=== PATIENT | male | born 1930 | race Caucasian/White ===

== ENCOUNTER 2017-07-06 16:14 | Inpatient (IN) | payer MEDICARE ==
[2017-07-06] MEDS ORDERED: NS 0.9% 1000 ML* 1,000 ML IV ONE ×3 (16:37→18:04)
[2017-07-06 16:51] LABS: Hematocrit 34 % (42-52); Hemoglobin 11.1 g/dl (14.0-18.0); Mean Corpuscular HGB Conc 33 g/dl (31-36); Mean Corpuscular Hemoglobin 32 pg (27-31); Mean Corpuscular Volume 97 fL (80-94); Mean Platelet Volume 5.9 um3 (7.4-10.4); Platelet Count 343 10^3/ul (150-450); Red Blood Count 3.51 10^6/ul (4.0-5.4); Red Cell Distribution Width 13 % (10.5-15); White Blood Count 24.5 10^3/ul (3.5-10.8)
--- NOTE | 2017-07-06 16:57 | RAD ---
INDICATION: Findings called to ED at 1453 hours COMPARISON: None TECHNIQUE: Noncontrast axial source images were acquired from the skull base to the vertex. FINDINGS: Ventricles/sulci: There is advanced cortical atrophy with compensatory dilatation of the CSF spaces. Brain parenchyma: There is moderately extensive periventricular and subcortical white matter change compatible with chronic ischemia. Intracranial hemorrhage:None. Extra-axial spaces: There are no abnormal extra axial fluid collections or evidence of extra-axial mass. Calvarium: There is no calvarial fracture or other calvarial abnormality. Scalp: There is no evidence of scalp or extracalvarial soft tissue abnormality. Paranasal sinuses/mastoid: The paranasal sinuses and mastoid air cells are clear. Other: None. IMPRESSION: ATROPHY WITH CHRONIC MICROVASCULAR ISCHEMIC CHANGE. NO ACUTE FINDINGS.
--- NOTE | 2017-07-06 16:59 | RAD ---
INDICATION: Code winkler. Change in mental status. COMPARISON: June 08, 2014 TECHNIQUE: An AP portable view obtained at 1649 hours is submitted. FINDINGS: Bones/Soft Tissues: There are no acute bony findings. Lungs: There are consolidative changes in the right chest which appear new. There are additional chronic pleural and parenchymal findings which appear relatively stable. Left lung is grossly clear. Cardiac: The chronic silhouette is unchanged. Pleura: Right-sided pleural fluid without change. Biapical scarring, unchanged. Other: None IMPRESSION: DEVELOPMENT OF CONSOLIDATIVE CHANGES IN THE RIGHT UPPER LOBE. UNDERLYING CHRONIC PLEURAL AND PARENCHYMAL CHANGES RIGHT HEMOTHORAX.
[2017-07-06] MEDS ORDERED: Aspirin 81 mg CHEW TAB* 81 MG TAB.CHEW PO ONE (17:07)
[2017-07-06 17:09] LABS: EGFR Non-African American 87.8 (>60)
[2017-07-06] MEDS ORDERED: Levofloxacin 750 MG IVPREMIX(* 750 MG/150 ML BAG IVPB ONE (17:10)
[2017-07-06 17:12] LABS: INR 1.1 (0.77-1.02)
[2017-07-06 17:42] LABS: ABS Basophils 0.1 10^3/ul (0-0.2); ABS Eosinophils 0 10^3/ul (0-0.6); ABS Lymphocytes 1.1 10^3/ul (1.0-4.8); ABS Neutrophils 21.3 10^3/ul (1.5-7.7); ABS Nucleated RBC 0 10^3/ul; Eosinophil % 0 % (0-6); Lymphocyte % 4.5 % (25-47); Nucleated Red Blood Cells % 0
[2017-07-06] MEDS ORDERED: Ondansetron INJ* 2 MG/ML VIAL IV PRN (18:04)
[2017-07-06] MEDS ORDERED: Acetaminophen TAB* 325 MG PO PRN (18:04)
[2017-07-06] MEDS ORDERED: Albuterol 2.5 MG/3 ML NEB.SOL* (0.083%) INH PRN (18:04)
[2017-07-06] MEDS ORDERED: NS 0.9% 1000 ML* 1,000 ML IV SCH (18:15)
--- NOTE | 2017-07-06 18:30 | ED ---
Aiden Ferrara Julia, scribed for Cody Hayes MD on 07/06/17 at 1655 . Neurological HPI - HPI Summary HPI Summary: This patient is a 86 year old M presenting to [facility] accompanied by his family with a chief complaint of left sided weakness since noon today. Family states his current voice is typically. He reports a recent hoarse voice at baseline. He states SOB and cough for the past couple months. Patient denies chest pain. Patient has hx of abscess removal in his right lung with residual scaring. He denies history of TIA or CVA. - History of Current Complaint Chief Complaint: EDNeurologicalDeficit Stated Complaint: LT SIDE NUMBNESS Time Seen by Provider: 07/06/17 16:25 Hx Obtained From: Patient, Family/Land Survey Technician Onset/Duration: Sudden Onset, Started hours ago Timing: Constant Neurological Deficit Location: LUE, LLE Pain Intensity: 0 Character: Motor Weakness - left sided Associated Signs and Symptoms: Positive: Nothing - SOB cough and hoarse voice - Allergy/Home Medications Allergies/Adverse Reactions: Allergies Allergy/AdvReac Type Severity Reaction Status Date / Time No Known Allergies Allergy Verified 07/06/17 16:26 Home Medications: Home Medications NK [No Home Medications Reported] 07/06/17 [History Confirmed 07/06/17] PMH/Surg Hx/FS Hx/Imm Hx Endocrine/Hematology History: Denies: Hx Diabetes, Hx Systemic Lupus Erythematosus Cardiovascular History: Denies: Hx Congestive Heart Failure, Hx Hypertension Comment Only: Other Cardiovascular Problems/Disorders - pac's Respiratory History: Reports: Hx Asthma GI History: Comment Only: Other GI Disorders - hx reflux History: Denies: Hx Dialysis, Hx Renal Disease Musculoskeletal History: Denies: Hx Rheumatoid Arthritis Neurological History: Denies: Hx CVA, Hx Transient Ischemic Attacks (TIA) - Cancer History Hx Chemotherapy: No - Surgical History Surgery Procedure, Year, and Place: rotator cuff repair left. abscess removed from right lung Infectious Disease History: No Infectious Disease History: Denies: Traveled Outside the [place] in Last 30 Days Review of Systems ENT: Other - hoarse voice Negative: Chest Pain Positive: Shortness Of Breath, Cough Positive: Weakness - left sided All Other Systems Reviewed And Are Negative: Yes Physical Exam - Summary Physical Exam Summary: Appearance: Well appearing, no pain distress Skin: warm, dry, reflects adequate perfusion Head/face: normal, no facial droop Eyes: EOMI, CATHI, pupils are small (1mm) bilaterally ENT: normal Neck: supple, non-tender Respiratory: CTA on the left, breath sounds present, crackles in mid right lung with diminished lung sounds in the right apex Cardiovascular: Tachycardia with occasional irregularity, pulses symmetrical Abdomen: non-tender, soft Bowel Sounds: present Musculoskeletal: strength/ROM intact, no lower extremity edema Neuro: sensory intact, A&Ox3, left extremity weakness/drift Triage Information Reviewed: Yes Vital Signs On Initial Exam: Initial Vitals Temp Pulse Resp BP Pulse Ox 98.6 F 111 16 110/65 92 07/06/17 16:26 07/06/17 16:26 07/06/17 16:26 07/06/17 16:26 07/06/17 16:26 Vital Signs Reviewed: Yes Diagnostics - Vital Signs Vital Signs Temp Pulse Resp BP Pulse Ox 07/06/17 16:26 98.6 F 111 16 110/65 92 - Laboratory Lab Results: Lab Results 07/06/17 07/06/17 07/06/17 Range/Units 16:36 16:42 16:42 WBC 24.5 H (3.5-10.8) 10^3/ul RBC 3.51 L (4.0-5.4) 10^6/ul Hgb 11.1 L (14.0-18.0) g/dl Hct 34 L (42-52) % MCV 97 H (80-94) fL MCH 32 H (27-31) pg MCHC 33 (31-36) g/dl RDW 13 (10.5-15) % Plt Count 343 (150-450) 10^3/ul MPV 5.9 L (7.4-10.4) um3 Neut % (Auto) 87.2 H (38-83) % Lymph % (Auto) 4.5 L (25-47) % [place] % (Auto) 8.1 H (0-7) % Eos % (Auto) 0 (0-6) % Baso % (Auto) 0.2 (0-2) % Absolute Neuts (auto) 21.3 H (1.5-7.7) 10^3/ul Absolute Lymphs (auto) 1.1 (1.0-4.8) 10^3/ul Absolute Monos (auto) 2.0 H (0-0.8) 10^3/ul Absolute Eos (auto) 0 (0-0.6) 10^3/ul Absolute Basos (auto) 0.1 (0-0.2) 10^3/ul Absolute Nucleated RBC 0 10^3/ul Nucleated RBC % 0 ESR Pending INR (Anticoag Therapy) 1.10 H (0.77-1.02) APTT 30.0 (26.0-36.3) seconds Sodium (139-145) mmol/L Potassium (3.5-5.0) mmol/L Chloride (101-111) mmol/L Carbon Dioxide (22-32) mmol/L Anion Gap (2-11) mmol/L BUN (6-24) mg/dL Creatinine (0.67-1.17) mg/dL Est GFR ( Amer) (>60) Est GFR (Non-Af Amer) (>60) BUN/Creatinine Ratio (8-20) Glucose (70-100) mg/dL POC Glucose (mg/dL) 114 H (70-100) mg/dL Lactic Acid (0.5-2.0) mmol/L Calcium (8.6-10.3) mg/dL Total Bilirubin (0.2-1.0) mg/dL AST (13-39) U/L ALT (7-52) U/L Alkaline Phosphatase (34-104) U/L Troponin I (<0.04) ng/mL C-Reactive Protein Total Protein (6.4-8.9) g/dL Albumin (3.2-5.2) g/dL Globulin (2-4) g/dL Albumin/Globulin Ratio (1-3) Triglycerides mg/dL Cholesterol mg/dL LDL Cholesterol mg/dL HDL Cholesterol mg/dL Blood Type Antibody Screen 07/06/17 07/06/17 07/06/17 Range/Units 16:42 16:42 16:42 WBC (3.5-10.8) 10^3/ul RBC (4.0-5.4) 10^6/ul Hgb (14.0-18.0) g/dl Hct (42-52) % MCV (80-94) fL MCH (27-31) pg MCHC (31-36) g/dl RDW (10.5-15) % Plt Count (150-450) 10^3/ul MPV (7.4-10.4) um3 Neut % (Auto) (38-83) % Lymph % (Auto) (25-47) % [place] % (Auto) (0-7) % Eos % (Auto) (0-6) % Baso % (Auto) (0-2) % Absolute Neuts (auto) (1.5-7.7) 10^3/ul Absolute Lymphs (auto) (1.0-4.8) 10^3/ul Absolute Monos (auto) (0-0.8) 10^3/ul Absolute Eos (auto) (0-0.6) 10^3/ul Absolute Basos (auto) (0-0.2) 10^3/ul Absolute Nucleated RBC 10^3/ul Nucleated RBC % ESR INR (Anticoag Therapy) (0.77-1.02) APTT (26.0-36.3) seconds Sodium 126 L (139-145) mmol/L Potassium 4.0 (3.5-5.0) mmol/L Chloride 88 L (101-111) mmol/L Carbon Dioxide 32 (22-32) mmol/L Anion Gap 6 (2-11) mmol/L BUN 14 (6-24) mg/dL Creatinine 0.83 (0.67-1.17) mg/dL Est GFR ( Amer) 113.0 (>60) Est GFR (Non-Af Amer) 87.8 (>60) BUN/Creatinine Ratio 16.9 (8-20) Glucose 109 H (70-100) mg/dL POC Glucose (mg/dL) (70-100) mg/dL Lactic Acid 1.3 (0.5-2.0) mmol/L Calcium 9.2 (8.6-10.3) mg/dL Total Bilirubin 0.60 (0.2-1.0) mg/dL AST 13 (13-39) U/L ALT 6 L (7-52) U/L Alkaline Phosphatase 119 H (34-104) U/L Troponin I 0.01 (<0.04) ng/mL C-Reactive Protein Pending Total Protein 7.9 (6.4-8.9) g/dL Albumin 3.3 (3.2-5.2) g/dL Globulin 4.6 H (2-4) g/dL Albumin/Globulin Ratio 0.7 L (1-3) Triglycerides 49 mg/dL Cholesterol 112 mg/dL LDL Cholesterol 51 mg/dL HDL Cholesterol 51.1 mg/dL Blood Type A Positive Antibody Screen Negative Result Diagrams: 07/06/17 16:42 07/06/17 16:42 Lab Statement: Any lab studies that have been ordered have been reviewed, and results considered in the medical decision making process. - Radiology CXR Radiology Interpretation Completed By: Radiologist - DEVELOPMENT OF CONSOLIDATIVE CHANGES IN THE RIGHT UPPER LOBE. UNDERLYING CHRONIC PLEURAL AND PARENCHYMAL CHANGES RIGHT HEMOTHORAX. ED Physician has reviewed this report. - CT Brain CT CT Interpretation Completed By: Radiologist - ATROPHY WITH CHRONIC MICROVASCULAR ISCHEMIC CHANGE. NO ACUTE FINDINGS. ED Physician has reviewed this report. - EKG 1650 Cardiac Rate: Tachycardia - at 109 BPM EKG Rhythm: Sinus Tachycardia ST Segment: Normal Ectopy: PACs EKG Interpretation: nml axis, nml interval NIH Scale - NIH Scale Level of Consciousness: Alert/Keenly Responsive Ask Patient the Month and His/Her Age: Both Correct Ask Pt to Open/Close Eyes and Roundhouse Worker/Release Non-Paretic Hand: Both Correctly Best Gaze (Only Horizontal Eye Movement): Normal Visual Field Testing: No Visual Loss Facial Paresis-Pt to Smile & Close Eyes or Grimace Symmetry: Normal/Symmetrical Motor Function - Right Arm: No Drift-Holds 10 Seconds Motor Function - Left Arm: Drifts LT 10 seconds Motor Function - Right Leg: No Drift-Holds 10 Seconds Motor Function - Left Leg: Drifts LT 10 seconds Limb Ataxia-Must be out of Proportion to Weakness Present: Absent Sensory (Use Pinprick to Test Arms/Legs/Trunk/Face): Normal Best Language (Describe Picture, Name Items): No Aphasia Dysarthria (Read Several Words): Normal Extinction and Inattention: No Abnormality Total Score: 2 Re-Evaluation - Re-Evaluation 1 Re-Evaluation Time: 17:06 Change: Improved - Patients NIH is now zero. Course/Dx - Course Course Of Treatment: Pt came in with L sided deficit, NIHSS 2 with drift only. Found to be tachy with R sided crackles on lung exam. Hx of surgery for abscess in that same area. Xray much worse. L sided deficit resolved by time neurologist came to evaluate with hydration only. Added ASA, started Levaquin for new infiltrate. Discussed case with hospitalist who will admit. - Differential Dx Differential Diagnoses Neuro: Positive: Cerebrovascular Accident, Transient Ischemic Attack, Other - pneumonia, empyema - Diagnoses Provider Diagnoses: TIA (transient ischemic attack), Right middle lobe pneumonia, Sepsis During the Visit The Following Alert/Code Occurred: Code Dee - 04:35 - Critical Care Time Critical Care Time: 30-74 min - Critical Care Time is exclusive of separately billable procedures Discharge - Sign-Out/Discharge Documenting (check all that apply): Discharge - Discharge Plan Condition: Guarded Disposition: ADMITTED TO [facility] - Billing Disposition and Condition Condition: GUARDED Disposition: [facility] Consult Consult: At 16:40, Dr Myrick, neurologist, agrees to evaluate patient in ED. At 17:00, Jesu Conroy, radiologist states CXR reveals infiltrates and the pt should be treated for PNA. If symptoms persist he recommends further imaging. At 17:08, Dr Myrick is evaluating pt and recommends ASA. At 17:10, Dr Figueroa, hospitalist, agrees to admit pt. The documentation as recorded by the Aiden pike Julia accurately reflects the service I personally performed and the decisions made by , Cody Hayes MD.
[2017-07-06] MEDS ORDERED: Gadoteridol* (CONTRAST) 279.3 MG/ML 10 ML IV ONE (18:57)
[2017-07-06] MEDS ORDERED: Albuterol/Ipratropium NEB.SOL* Albuterol 2.5 MG/Ipratropium 0.5 MG 3 ML INH SCH (19:00)
--- NOTE | 2017-07-06 19:21 | RAD ---
INDICATION: 86-year-old with TIA. COMPARISON: CT brain same date TECHNIQUE: sagittal T1 FLAIR, axial diffusion, axial T1 FLAIR, axial T2, axial T2 FLAIR, and SWI images were acquired. Multiplanar T1-weighted images were obtained for demonstration of 10 mL of ProHance. The images are mildly limited due to artifact from dental implants. This dental hardware was not removable FINDINGS: Craniocervical junction: The craniocervical junction appears normal. Ventricles/sulci: There is cortical atrophy with compensatory dilatation of the CSF spaces. Brain parenchyma: Diffusion images show multiple small cortical and subcortical punctate foci of increased signal involving both cerebral hemispheres. The multiple vascular distributions suggest possibility of embolic phenomenon. There is extensive chronic underlying periventricular and subcutaneous cortical white matter change consistent with the sequela of prior vascular insult. 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 There is no abnormal enhancement Intracranial hemorrhage: There is no intracranial hemorrhage. Extra-axial spaces: There are no extra-axial fluid collections or masses. Orbits: There are no MR abnormalities of the orbital structures. Paranasal sinuses/mastoid: The paranasal sinuses are clear. The mastoid air cells are well aerated.. Vascular: No abnormalities are seen. Other: None IMPRESSION: 1. Mildly Limited examination due to signal void artifact from prior dental procedure. 2. Multiple small areas of increased signal in cortical and subcortical locations in both cerebral hemispheres consistent with acute ischemia. Consider embolic phenomenon. 3. Cortical atrophy with chronic underlying microvascular ischemic change. 4. 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
[2017-07-06] MEDS ORDERED: Iohexol 350* (CONTRAST) 500 ML MDV IV ONE (20:21)
[2017-07-06] MEDS ORDERED: Azithromycin IV(*) 500 MG in NS 0.9% 250 ML* 250 ML IVPB SCH (21:00)
[2017-07-06] MEDS ORDERED: cefTRIAXone(*) 2 GM in NS 0.9% 100 ML* 100 ML IVPB SCH (21:00)
[2017-07-06] MEDS ORDERED: Albuterol/Ipratropium NEB.SOL* Albuterol 2.5 MG/Ipratropium 0.5 MG 3 ML INH PRN (21:05)
[2017-07-06 21:22] LABS: EGFR Non-African American 106.9 (>60)
--- NOTE | 2017-07-06 21:53 | RAD ---
INDICATION: TIA/ISCHEMIA. Change in mental status. COMPARISON: CT brain same date; contrast-enhanced MRI brain same date TECHNIQUE: Axial source images were acquired with coronal and sagittal reconstructions. CT angiographic technique was utilized with injection of 80 mL Omnipaque 350. FINDINGS: Aortic arch: There are mild atherosclerotic changes of the arch and great vessels arising from the arch. 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 Right carotid: The common carotid artery, carotid bifurcation, extracranial portions of the internal carotid artery, carotid artery at the skull base, carotid siphon, and carotid termination appear patent but there are as described changes. These consist of moderate calcific plaque formation about the terminal portion of the common carotid artery and the carotid bifurcation with resultant 70% diameter stenosis of the right internal carotid artery. There are also interval calcification of the horizontal portion of the right internal carotid artery and the carotid siphon without significant associated stenosis. Left carotid:The common carotid artery, carotid bifurcation, extracranial portions of the internal carotid artery, carotid artery at the skull base, carotid siphon, and carotid termination appear patent. There are atherosclerotic changes of the terminal portion of the common carotid artery and carotid bifurcation with calcific plaque formation and resultant 50% diameter stenosis of the internal carotid artery at the bifurcation. There also moderate intimal consultations of the horizontal portion of the internal carotid artery and the carotid siphon. Right middle and anterior cerebral arteries: There are no CT angiographic abnormalities of the middle or anterior cerebral arteries. Left middle and anterior cerebral arteries: There are no CT angiographic abnormalities of the middle or anterior cerebral arteries Right vertebral: There are no significant CT angiogram abnormalities right vertebral artery. Left vertebral: There are no significant CT angiogram abnormalities of the left vertebral artery. Basilar artery: The basilar artery and basilar tip appear patent. Posterior cerebral arteries: There are no significant CT angiographic abnormalities of the distal distribution of the right and left posterior cerebral arteries. [place]: The CT angiographic appearance of the [place] is normal. Source images demonstrate biapical lung abnormalities as identified on recent chest radiography. There is no discrete mass or adenopathy within the neck. 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 There is cortical atrophy with chronic microvascular ischemic change. IMPRESSION: 1. Apical lung abnormalities. These correspond to chest x-ray abnormalities. A follow-up CT of the chest and/or follow-up chest x-rays are planned. 2. Atherosclerotic changes of the arch and great vessel arising from the arch but no evidence of significant stenosis or aneurysm. 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 3. Moderate calcific plaque formation at the right carotid bifurcation with a 70% diameter stenosis. There are atherosclerotic changes of the horizontal portion of the internal carotid artery and the carotid siphon as described. 4. Moderate calcific plaque formation about the left carotid bifurcation with a 50% diameter stenosis. There are atherosclerotic changes of the horizontal portion of the internal carotid artery and the carotid siphon as described. 5. No intracranial aneurysm, branch occlusion, or other significant stenosis 6. Atherosclerotic changes of the cervical spine CPT II Codes: 3100F RS
--- NOTE | 2017-07-06 22:52 | HP ---
CC: Dr. Myrick; Dr. Tyler; Dr. Huntley; Dr. Park * HISTORY AND PHYSICAL: DATE OF ADMISSION: 07/06/17 PRIMARY CARE PROVIDER: Dr. Tyler. ATTENDING PHYSICIAN WHILE IN THE HOSPITAL: Louise Pierre MD * (report dictated by Juancarlos Bernal NP) CONSULTING NEUROLOGIST: Dr. Myrick. CONSULTING AGRICULTURAL CHEMIST: Dr. Huntley. CONSULTING ID SPECIALIST: Dr. Park. CHIEF COMPLAINT: 1. Left-sided weakness. 2. Cough. 3. Shortness of breath. HISTORY OF PRESENT ILLNESS: Mr. Love is an 86-year-old male patient who has no previous medical history. He has a history of a lung abscess in the past in [address]-guided drainage and biopsy. It ultimately grew out Strep intermedius. He comes today stating that his biggest complaint was around noontime, he started noticing that he had left-sided weakness, could not move his left arm, could not move his left lower extremity. He sat down, he called his daughter, his daughter came and when she saw him, she could not make him stand because of how weak the left side was. They called 911. There were no reports of facial droop. No reports of visual disturbances. No weakness on the right side. The patient had been complaining in the last month that he has been having a cough. He has had about a 4 to 5 pound weight loss. He does admit to having some worsening shortness of breath, getting progressively worse. He came in to the emergency department today because of this weakness originally and then on evaluation was found to be septic from a significant right sided, what appears to be pneumonia consolidation. By the time he got here in the ED, he still had some residual right-sided weakness. A Code Robles was called and by the time he got back from CAT scan, it resolved. He denied having any chest pain. He denied having any abdominal pain or any nausea or vomiting. He denied having any dizziness or lightheadedness, but because of the concern of a TIA and the fact that he appeared to be septic, we were asked to evaluate for admission. PAST MEDICAL HISTORY: Denied. PAST SURGICAL HISTORY: 1. He has had cataract extraction. 2. Right middle lobe lung biopsy. 3. Left shoulder surgery. MEDICATIONS: Home medications, denied. ALLERGIES TO MEDICATIONS: Include no known drug allergies. FAMILY HISTORY: Mother had a history of heart disease. Father of old age. SOCIAL HISTORY: He is a former smoker. He smoked for 30 years. He does drink 1 to 2 beers a day. Surrogate decision maker is his and daughter. REVIEW OF SYSTEMS: There is no documented fever. He did admit to having 4 to 5 pound weight loss. He denies any rhinorrhea. No sore throat. No thyroid enlargement. Denies having any chest pain. He does admit to having dyspnea particularly with exertion. He denies having any abdominal pain. There is no nausea, no vomiting. There is no dysuria, no frequency. No seizure. No loss of consciousness. No pruritus. There are no skin ulcerations. Review of 14 systems completed, all others negative. PHYSICAL EXAMINATION GENERAL: At this time, Mr. Lvoe is an 86-year-old male patient. He is sitting in the ED stretcher. He does appear to be in a mild amount of respiratory distress. He is taking a shallow breath and is mildly tachypneic. He appears to be well nourished, well developed. VITAL SIGNS: Blood pressure 125/64, pulse 104, respirations 26. O2 sat was 92% , it is now 98% on 4 L. Temperature 98.6. HEENT: Head: Atraumatic, normocephalic. Eyes: EOMs are intact. Sclerae anicteric and not pale. Throat: Oral mucosa appears to be moist. No oropharyngeal erythema. NECK: Supple. LUNGS: Diminished in the right base. He had equal diaphragmatic expansion. HEART: Sounds S1, S2. He is tachycardic. ABDOMEN: Soft, flat, nontender. Bowel sounds are present. EXTREMITIES: He is actually now moving all 4 extremities to me. He has about 4 /5 strength on the left side, his initial complaint of weakness. On the the right, he has got 5/5 strength. No peripheral edema. Pulses are 2+ throughout. NEUROLOGIC: He is awake. He is alert. He is oriented x3. His speech is clear. His tongue was midline. His master fisher were equal in the upper extremities, but on the lower extremity on the left side, he is a little weaker than on the right. Finger- to-nose is intact bilaterally. Aeej-bd-pdtj is intact bilaterally. No other gross focal deficits were noted. SKIN: Intact. LABORATORY DATA/DIAGNOSTIC STUDIES: WBC of 24.5, RBC of 3.51, hemoglobin 11.1 , hematocrit of 34, platelet count of 343,000. Sodium 126, potassium of 4.0, chloride of 88, bicarb 32, BUN 14, creatinine of 0.83, glucose 109. Calcium 9.2. Total bili 0.6, AST 13, ALT 6, alk phos 119. Troponin 0.01. CRP pending. Albumin was 3.3. He did have a CT brain, impression: Atrophy with chronic microvascular ischemic change, no acute findings. There was a chest x-ray obtained today, which showed development of consolidative changes in the right upper lobe, underlying chronic pleural and parenchymal changes in the right hemothorax. There was an EKG obtained today that showed sinus tachycardia, rate of 109, no ST elevations or T wave inversions. Old medical records were reviewed. ASSESSMENT AND PLAN: Mr. Love is an 86-year-old male patient coming in to the ED today with complaints of weakness in the left side. On evaluation today , found to have consolidative changes and sepsis on exam. His left-sided weakness did resolve. We were asked to evaluate for admission. He will be admitted under inpatient status for: 1. Sepsis secondary to what appears to be a right upper lobe, right middle lobe pneumonia. At this point, I did touch base with Dr. Park. He has had a history of an abscess in the past. I am concerned he may have a recurrence. I did put him on Levaquin given his previous microbiology. I also placed a call to Dr. Brunilda Huntley, have not heard back from her yet. We will try to get in touch with her as he may need bronchoscopy, he may need draining of this, so at this point, again we will hydrate him. Mayo culture, Legionella antigen, Strep pneumo antigen, flu swab all have been ordered. We will try to get a sputum culture on the patient if possible. I have ordered nebs and flutter valve for aggressive pulmonary toileting and he is a little mildly tachypneic on exam, so I am going to go ahead put him on Vapotherm in the ICU to get ahead of this. We will give him 2 L of fluid. His lactic was normal. ESR and CRP is pending. 2. Question of transient ischemic attack. Again, his CT scan at this point was negative, but I think we should get an MRI of the brain with and without CTA of the head and neck along with an echo and also get CT of the chest and we will start him on a baby aspirin. I did order neuro checks. Dr. Myrick did evaluate the patient. We will get a lipid panel and A1c in the morning and we will continue to follow. 3. Hyponatremia. This is probably secondary to dehydration, but we will go ahead and hydrate him and we will repeat his BMP later tonight to make sure this is trending up. 4. Code status. He wishes to be a DNR. 5. Fluids, electrolytes, and nutrition. I did order a regular diet. 6. DVT prophylaxis, high risk. He will be placed on heparin subcu. TIME SPENT: On the admission was 60 minutes, greater than half the time spent face- to-face with the patient obtaining my history and physical, the other half time was spent going over the plan of care with the patient and implementing plan of care. I discussed plan of care with my attending, Dr. Pierre; she is in agreement. JUANCARLOS BERNAL, AKI [id number]/[facility] #: [id number] CARL
--- NOTE | 2017-07-06 22:52 | CONS ---
CC: Dr. Caitlyn Tyler NEUROLOGY CONSULTATION REPORT: DATE OF CONSULT: 07/06/17 REQUESTING PHYSICIAN: Dr. Hayes in ED and Juancarlos Bernal NP from hospitalist team. PRIMARY CARE PHYSICIAN: Dr. Caitlyn Tyler. REASON FOR CONSULT: Acute left-sided numbness, rule out stroke. HISTORY OF PRESENT ILLNESS: The patient is an 86-year-old right-handed male who around noon today felt he was not able to use his left arm and hand very well and he was not able to grab to objects with his left hand and he felt weak on the left leg as well. In addition, he felt "funny" on the left side with no clear report of numbness. Because of the weakness in the left leg he was not able to ambulate. Denies any other associated symptoms such as no diplopia, no dysarthria and no dysphagia. The patient presented to the hospital around 4:15 p.m. Neurology was called in on 4:40 p.m. and by the time I arrived at the patient's bedside was around 5 p.m. By the time I arrived at the patient's bedside, he had just returned from CT scan and he felt his symptoms had improved. The patient reports a similar episode only in the left arm (not leg) about a year ago that lasted probably less than an hour and was much shorter than this event. He did not seek medical attention at that time. The patient has been feeling problems with his lungs and being short of breath with coughs and phlegm for the past 2 months. He said he was just give Robittusin. PAST MEDICAL HISTORY: Significant for the mentioned lung problem since about 2 months ago. He has a history of prostate hypertrophy as well. PAST SURGICAL HISTORY: Lung biopsy MEDICATIONS: The patient is not taking any medications regularly at home. ALLERGIES: No known drug allergies. FAMILY HISTORY: The patient's sister has history of Parkinson's disease that was recently diagnosed. SOCIAL HISTORY: The patient has a history of smoking for about 35 years, quit about 30 years ago. He drinks about 1 to 2 beers a day. Denies any use of drugs. 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 REVIEW OF SYSTEMS: Complete review of systems performed and other than what was mentioned in HPI is negative. PHYSICAL EXAM: Blood pressure is 125/78, pulse rate is 108, respiratory rate 27 and temperature 98.6. The patient is awake, alert, oriented and seems like a bit of respiratory distress. On neurological exam, the patient is awake, alert, and oriented to time, place and person. He does not know the exact date , but knows the month, year and day of the week. His pupils are symmetric and reactive to light. Extraocular movements are intact. Visual butt are intact by confrontation. Face is symmetric. Tongue is in midline. Palate elevates upwards. V1 to V3 is intact bilaterally to light touch and pinprick. There is no pronator drift in the arms. Strength is 5/5 throughout other than hip flexors bilaterally, which are 4+/5. Xwkbre-jb-tlan is intact bilaterally. The patient's sensation to light touch and pinprick is intact bilaterally. Vibration is intact in the upper and lower extremities. Deep tendon reflexes are 2+ in the upper extremities and 1+ in the lower extremities. Heart has regular rate and rhythm. Abdomen is soft and nontender. NIHSS is 0. LABORATORY DATA: WBC 24.5, hemoglobin 11.1, hematocrit 34, platelets 343. Sodium 126, potassium 4, BUN 14, creatinine 0.83, AST and ALT within normal range, alkaline phosphatase 119, B12 51.1, LDL 51. IMAGING DATA: CT of the head today without contrast showed atrophy with chronic microvascular ischemic changes with no acute findings. His chest x-ray shows development of consolidative changes in the right upper lobe, underlying chronic pleural and parenchymal changes in the right hemithorax. ASSESSMENT AND PLAN: The patient is an 86-year-old male with sudden onset of left- sided weakness started around noon today. The patient presented to the hospital around 4:15 p.m. Neurology was called in on 4:40 p.m. and by the time I arrived at the patient's bedside was around 5 p.m his NIH stroke scale had improved to 0 and there was resolution of the weakness on the left side. The patient is not a candidate for thrombolytic therapy at this point as there is no clear deficit on the neurological exam at this point. This could be a transient ischemic attack. He will need to have an MRI of the brain and a CT angiogram of the head and neck plus echocardiogram. Treatment of the lung condition (pneumonia?) per the Hospitalist. The patient will be started on antiplatelets. [id number]/[facility] #: [id number] [facility]
[2017-07-06] MEDS: Heparin VIAL(*) 5000 UNITS/ML VIAL (FIVE THOUSAND) SUBCUT SCH (23:09)
[2017-07-07] MEDS: SODIUM CHLORIDE IVPB SCH ×4 (00:05→20:29)
[2017-07-07] MEDS: CEFTRIAXONE IVPB SCH ×4 (00:05→20:29)
[2017-07-07 06:26] LABS: ABS Basophils 0.1 10^3/ul (0-0.2); ABS Eosinophils 0 10^3/ul (0-0.6); ABS Lymphocytes 0.6 10^3/ul (1.0-4.8); ABS Neutrophils 14.5 10^3/ul (1.5-7.7); ABS Nucleated RBC 0 10^3/ul; Eosinophil % 0.1 % (0-6); Hematocrit 30 % (42-52); Lymphocyte % 3.7 % (25-47); Mean Corpuscular HGB Conc 33 g/dl (31-36); Mean Corpuscular Hemoglobin 32 pg (27-31); Mean Corpuscular Volume 97 fL (80-94); Mean Platelet Volume 6.1 um3 (7.4-10.4); Nucleated Red Blood Cells % 0; Platelet Count 294 10^3/ul (150-450); Red Blood Count 3.13 10^6/ul (4.0-5.4); Red Cell Distribution Width 13 % (10.5-15); White Blood Count 16.2 10^3/ul (3.5-10.8)
[2017-07-07 06:50] LABS: EGFR Non-African American 116.5 (>60)
[2017-07-07] MEDS: Heparin VIAL(*) 5000 UNITS/ML VIAL (FIVE THOUSAND) SUBCUT SCH ×3 (06:57→22:59)
[2017-07-07] MEDS ORDERED: Iohexol 300* (CONTRAST) 10 ML SDV IV ONE (08:26)
[2017-07-07] MEDS: Aspirin 81 mg CHEW TAB* 81 MG TAB.CHEW PO SCH (08:40)
--- NOTE | 2017-07-07 09:26 | RAD ---
INDICATION: Lung abscess. COMPARISON: There are no prior studies available for comparison. TECHNIQUE: A CT scan of the chest was performed with intravenous contrast following intravenous injection of 80 ml of Omnipaque 300 nonionic contrast. Contiguous axial sections were obtained from the lung apices through the lung bases. Images were reconstructed in the coronal and sagittal planes. FINDINGS: There is a large cavity present at the right lung apex measuring 4.6 x 4.5 cm in size which is mainly air-filled. There is an infiltrate in the adjacent anterior aspect of the right upper lobe which appears to be partially necrotizing. There are small infiltrates present posterior medially in both lower lobes. There is a trace right pleural effusion present. No pneumothorax is seen. There are enlarged lymph nodes in the right paratracheal, pretracheal regions measuring up to 1.3 cm in transverse dimension. No enlarged hilar lymph nodes are seen. The heart is within normal limits in size. There are coronary artery calcifications present. No pericardial effusion is seen. The thoracic aorta is normal in caliber and demonstrates homogeneous contrast opacification. There is mild to moderate calcific plaque present. No significant focal osseous abnormality is seen. IMPRESSION: 1. RIGHT UPPER LOBE NECROTIZING INFILTRATE AND LARGE CAVITARY LESION AT THE RIGHT LUNG APEX. ADDITIONAL SMALLER BILATERAL LOWER LOBE INFILTRATES. 2. MILDLY ENLARGED MEDIASTINAL LYMPH NODES.
--- NOTE | 2017-07-07 10:26 | CONS ---
PULMONARY CONSULTATION REPORT: DATE OF CONSULT: 07/07/17. CONSULTATION REQUESTED BY: Juancarlos Bernal MD REASON FOR CONSULTATION: Evaluation of abnormal CT. HISTORY OF PRESENT ILLNESS: The patient is an 86-year-old male, former smoker with history of lung abscess in 2011, underwent CT-guided drainage and biopsy which was positive for Streptococcus intermedius treated with antibiotics. He has been doing well since that time. The patient presents to the emergency room for evaluation of sudden onset of left-sided weakness. The patient reports having cough for the past 2 months. Cough has been productive of brown phlegm. The patient denies difficulty swallowing or choking while eating. The patient denies known episode of aspiration. Patient reports that he has noticed sudden onset of left arm and left lower extremity weakness, could not move his extremities and was brought in for further evaluation. Patient also reports having malaise over the past 2 months. Patient also reports 4 to 5 pound weight loss and decreased appetite. Patient also reports developing shortness of breath over the same time. The patient denies fevers or chills. Patient denies any known sick contacts. He lives at home with his who has neurological issues. The patient reports that similar symptoms happened when he had lung abscess few years ago. The patient upon presenting to the emergency room had residual weakness. A stroke code was called. He underwent x -ray and CT scan of the brain. CT brain did not reveal any acute abnormalities. His weakness resolved within few minutes after arrival in the emergency room. Chest x-ray performed in the emergency room was personally reviewed by me in comparison with prior imaging studies. The patient had evidence of dense consolidation and airspace disease in right upper lobe. The patient is awaiting dedicated CT scan of the chest. The patient also had neurological evaluation. MRI of the brain showed concern for possible embolic disease. CTA of head and neck was done, there was evidence of dense consolidation and airspace disease in the right upper lung zone area. It could not be characterized further. In reviewing his prior imaging studies which included CT scan from 2011, it appears that patient had mass lesion in right upper lobe with necrotic mass with prominent precarinal and subcarinal lymph nodes. He underwent biopsy which showed lung abscess with Strep. Patient had a chest x-ray in 2014, during which time there was significant improvement in that dense consolidation that was seen on prior imaging studies from 2012 with some postsurgical changes, scarring and bullous disease in apical lobes. Patient also noted to have large bulla seen on images from his CTA of the brain and neck. Patient was found to have significantly elevated white count. Patient was started on Rocephin and Zithromax. The patient was seen and examined at bedside this morning. The patient reports improvement in his symptoms. Weakness has resolved. Patient reports improvement in cough and shortness of breath. He has remained afebrile. He is otherwise hemodynamically stable on 3 L O2 supplementation. He has significant wheezing on auscultation on the right side. PAST MEDICAL HISTORY: 1. Significant smoking history. 2. Lung abscess. PAST SURGICAL HISTORY: 1. Cataract extraction. 2. CT-guided biopsy in the right middle lobe. 2. Left shoulder surgery. MEDICATIONS: Not on any medications at home. ALLERGIES: No known drug allergies. FAMILY HISTORY: Heart disease in mother, father of old age. SOCIAL HISTORY: A 30-pack year smoking history, quit few years ago. Drinks 1 to 2 beers a day. REVIEW OF SYSTEMS: All 14 systems reviewed and as per HPI. PHYSICAL EXAMINATION: The patient in bed, in no apparent distress. Vital Signs : Temperature 98.2, respiratory rate 30 per minute, O2 sat 100% on 3 L, blood pressure 133/68. HEENT: Pupils equal and reactive to light. Mucous membranes are moist. Lungs: Diminished air entry on the right side with audible wheezing. Cardiovascular: S1, S2 present and regular. Abdomen: Soft, nontender, nondistended. Bowel sounds present. Extremities: Normal range of motion. Skin: No rash or bruise. Neuro: No focal deficits currently, alert, oriented x3. DIAGNOSTIC STUDIES/LAB DATA: WBC count elevated at 16.2, hemoglobin 10, hematocrit 30, platelet count 294 with left shift. Sodium 131, potassium 4.6, chloride 98, bicarb 32, BUN 10, creatinine 0.65. Influenza A and B negative. Sputum cultures suggestive of normal oral christine. CTA and chest x-rays as described above in HPI. 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 Also with MRI showing evidence of possible embolic disease concerning for septic emboli. Patient is on Rocephin and Zithromax, would agree with current coverage, might add Flagyl for anaerobic coverage given history of alcohol abuse. Patient is clinically improving, not in any distress or overt signs of significant sepsis. He does have wheezing on the right side likely secondary to underlying pneumonia. Would recommend obtaining CT scan of the chest for further evaluation of pneumonic consolidation in the right lung. Would consult Infectious Disease to ensure optimal coverage for pneumonia, less concern for anaerobes; however, cannot completely rule out. Sputum cultures negative to date. Will consider bronchoscopy depending upon CT chest findings. Continue with nebulizers. Continue with O2 supplementation. Thank you for allowing me to participate in the care of your patient. Discussed with Dr. Cota. [id number]/[facility] #: [id number] CARL
[2017-07-07] MEDS: metroNIDAZOLE IV 500 MG/100ML* 500 MG/100 ML BAG IVPB SCH ×2 (10:32→21:25)
--- NOTE | 2017-07-07 14:27 | PN ---
Progress Note - Progress Note Date of Service: 07/07/17 SOAP: Neurology progress note Date of service: 07/07/17 Subjective: Saw and examined the patient around 09:30 today. Patient is feeling better today. No recurrence of the weakness in the left arm or leg. His breathing is also better with less shortness of breath. Objective: Vital Signs Temp Pulse Resp BP Pulse Ox 98.4 F 97 20 109/63 100 07/07/17 10:21 07/07/17 10:21 07/07/17 10:42 07/07/17 10:21 07/07/17 10:21 Laboratory Results - last 24 hr 07/06/17 07/06/17 07/06/17 16:36 16:42 16:42 WBC 24.5 H RBC 3.51 L Hgb 11.1 L Hct 34 L MCV 97 H MCH 32 H MCHC 33 RDW 13 Plt Count 343 MPV 5.9 L Neut % (Auto) 87.2 H Lymph % (Auto) 4.5 L [place] % (Auto) 8.1 H Eos % (Auto) 0 Baso % (Auto) 0.2 Absolute Neuts (auto) 21.3 H Absolute Lymphs (auto) 1.1 Absolute Monos (auto) 2.0 H Absolute Eos (auto) 0 Absolute Basos (auto) 0.1 Absolute Nucleated RBC 0 Nucleated RBC % 0 ESR 109 H INR (Anticoag Therapy) 1.10 H APTT 30.0 Sodium Potassium Chloride Carbon Dioxide Anion Gap BUN Creatinine Est GFR ( Amer) Est GFR (Non-Af Amer) BUN/Creatinine Ratio Glucose POC Glucose (mg/dL) 114 H Hemoglobin A1c Lactic Acid Calcium Total Bilirubin AST ALT Alkaline Phosphatase Troponin I C-Reactive Protein Total Protein Albumin Globulin Albumin/Globulin Ratio Triglycerides Cholesterol LDL Cholesterol HDL Cholesterol Influenza A (Rapid) Influenza B (Rapid) Blood Type Antibody Screen 07/06/17 07/06/17 07/06/17 16:42 16:42 16:42 WBC RBC Hgb Hct MCV MCH MCHC RDW Plt Count MPV Neut % (Auto) Lymph % (Auto) [place] % (Auto) Eos % (Auto) Baso % (Auto) Absolute Neuts (auto) Absolute Lymphs (auto) Absolute Monos (auto) Absolute Eos (auto) Absolute Basos (auto) Absolute Nucleated RBC Nucleated RBC % ESR INR (Anticoag Therapy) APTT Sodium 126 L Potassium 4.0 Chloride 88 L Carbon Dioxide 32 Anion Gap 6 BUN 14 Creatinine 0.83 Est GFR ( Amer) 113.0 Est GFR (Non-Af Amer) 87.8 BUN/Creatinine Ratio 16.9 Glucose 109 H POC Glucose (mg/dL) Hemoglobin A1c Lactic Acid 1.3 Calcium 9.2 Total Bilirubin 0.60 AST 13 ALT 6 L Alkaline Phosphatase 119 H Troponin I 0.01 C-Reactive Protein 203.70 H Total Protein 7.9 Albumin 3.3 Globulin 4.6 H Albumin/Globulin Ratio 0.7 L Triglycerides 49 Cholesterol 112 LDL Cholesterol 51 HDL Cholesterol 51.1 Influenza A (Rapid) Influenza B (Rapid) Blood Type A Positive Antibody Screen Negative 07/06/17 07/06/17 07/06/17 20:50 20:50 21:51 WBC RBC Hgb Hct MCV MCH MCHC RDW Plt Count MPV Neut % (Auto) Lymph % (Auto) [place] % (Auto) Eos % (Auto) Baso % (Auto) Absolute Neuts (auto) Absolute Lymphs (auto) Absolute Monos (auto) Absolute Eos (auto) Absolute Basos (auto) Absolute Nucleated RBC Nucleated RBC % ESR INR (Anticoag Therapy) APTT Sodium 128 L Potassium 4.6 Chloride 94 L Carbon Dioxide 32 Anion Gap 2 BUN 13 Creatinine 0.70 Est GFR ( Amer) 137.5 Est GFR (Non-Af Amer) 106.9 BUN/Creatinine Ratio 18.6 Glucose 95 POC Glucose (mg/dL) Hemoglobin A1c Lactic Acid 1.4 Calcium 8.5 L Total Bilirubin AST ALT Alkaline Phosphatase Troponin I C-Reactive Protein Total Protein Albumin Globulin Albumin/Globulin Ratio Triglycerides Cholesterol LDL Cholesterol HDL Cholesterol Influenza A (Rapid) Negative Influenza B (Rapid) Negative Blood Type Antibody Screen 07/07/17 07/07/17 07/07/17 06:05 06:05 06:05 WBC 16.2 H RBC 3.13 L Hgb 10.0 L Hct 30 L MCV 97 H MCH 32 H MCHC 33 RDW 13 Plt Count 294 MPV 6.1 L Neut % (Auto) 89.5 H Lymph % (Auto) 3.7 L [place] % (Auto) 6.4 Eos % (Auto) 0.1 Baso % (Auto) 0.3 Absolute Neuts (auto) 14.5 H Absolute Lymphs (auto) 0.6 L Absolute Monos (auto) 1.0 H Absolute Eos (auto) 0 Absolute Basos (auto) 0.1 Absolute Nucleated RBC 0 Nucleated RBC % 0 ESR INR (Anticoag Therapy) APTT Sodium 131 L Potassium 4.6 Chloride 98 L Carbon Dioxide 32 Anion Gap 1 L BUN 10 Creatinine 0.65 L Est GFR ( Amer) 149.8 Est GFR (Non-Af Amer) 116.5 BUN/Creatinine Ratio 15.4 Glucose 125 H POC Glucose (mg/dL) Hemoglobin A1c 5.7 H Lactic Acid Calcium 8.6 Total Bilirubin AST ALT Alkaline Phosphatase Troponin I C-Reactive Protein Total Protein Albumin Globulin Albumin/Globulin Ratio Triglycerides 40 Cholesterol 97 LDL Cholesterol 46 HDL Cholesterol 43.2 Influenza A (Rapid) Influenza B (Rapid) Blood Type Antibody Screen Current Medications Acetaminophen (Tylenol Tab*) 650 mg PO Q4H PRN PRN Reason: FEVER/PAIN Albuterol (Ventolin 2.5 Mg/3 Ml Neb.Kaitlyn*) 2.5 mg INH Q2H PRN PRN Reason: SOB/WHEEZING Albuterol/Ipratropium (Duoneb (Albuterol 2.5 Mg/Ipratropium 0.5 Mg)) 1 neb INH Q2H PRN PRN Reason: SOB/WHEEZING Aspirin (Aspirin 81 Mg Chew Tab*) 81 mg PO DAILY [facility] Last Admin: 07/07/17 08:40 Dose: 81 mg Heparin Sodium (Porcine) (Heparin Vial(*)) 5,000 units SUBCUT Q8HR [facility] Last Admin: 07/07/17 06:57 Dose: 5,000 units Sodium Chloride (Ns 0.9% 1000 Ml*) 1,000 mls @ 100 mls/hr IV PER RATE [facility] Last Admin: 07/06/17 23:09 Dose: 100 mls/hr Azithromycin 500 mg/ Sodium (Chloride) 250 mls @ 250 mls/hr IVPB Q24H [facility] Last Admin: 07/06/17 23:08 Dose: 250 mls/hr Ceftriaxone Sodium 2,000 mg/ (Sodium Chloride) 20 mls @ 40 mls/hr IVPB Q24H [facility] Last Admin: 07/07/17 00:05 Dose: 40 mls/hr Metronidazole/Sodium Chloride (Flagyl 500 Mg Ivpb*) 500 mg in 100 mls @ 100 mls /hr IVPB Q12H [facility] Last Admin: 07/07/17 10:32 Dose: 100 mls/hr Ondansetron HCl (Zofran Inj*) 4 mg IV Q6H PRN PRN Reason: NAUSEA Alert and oriented x3, speech normal. Pupils symmetric and reactive to light. Extraocular movements intact with no nystagmus. Face symmetric, tongue is in midline, palate elevates upward symmetrically. Muscle tone and bulk normal, motor strength 5/5 throughout There is only tremor in the left finger to nose with no clear dysmetria. Exam Date: 07/06/17 CTA HEAD/NECK IMPRESSION: 1. Apical lung abnormalities. These correspond to chest x-ray abnormalities. A follow-up CT of the chest and/or follow-up chest x-rays are planned. 2. Atherosclerotic changes of the arch and great vessel arising from the arch but no evidence of significant stenosis or aneurysm. 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 3. Moderate calcific plaque formation at the right carotid bifurcation with a 70% diameter stenosis. There are atherosclerotic changes of the horizontal portion of the internal carotid artery and the carotid siphon as described. 4. Moderate calcific plaque formation about the left carotid bifurcation with a 50% diameter stenosis. There are atherosclerotic changes of the horizontal portion of the internal carotid artery and the carotid siphon as described. 5. No intracranial aneurysm, branch occlusion, or other significant stenosis 6. Atherosclerotic changes of the cervical spine ==== MRI brain without contrast 07/06/17 IMPRESSION: 1. Mildly Limited examination due to signal void artifact from prior dental procedure. 2. Multiple small areas of increased signal in cortical and subcortical locations in both cerebral hemispheres consistent with acute ischemia. Consider embolic phenomenon. 3. Cortical atrophy with chronic underlying microvascular ischemic change. 4. 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 Assessment and plan 86-year-old male presented with weakness in the left arm yesterday which improved to an NIHSS of 0. 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 CT angiogram of the head and neck shows carotid 70% stenosis in the right carotid bifurcation and 50% in the left carotid bifurcation. One concern at this time remains septic emboli; plan is for MOE. No anti-coagulation at this point yet as the risk of hemorrhage might be higher if these are septic emboli. Based on the further workup may need CEA after the subacute phase Time spent at bedside at least 25 minutes including discussion of the above with the patient, his daughter and son-in-law
--- NOTE | 2017-07-07 17:10 | PN ---
Subjective Date of Service: 07/07/17 Interval History: HOSPITALIST PROGRESS NOTE Patient seen and examined at bedside. Care reviewed and d/w his RN Anila Willis. Mr. Love feels better today. States his dyspnea is improved, but productive cough with abundant creamy brown sputum persists. Denies CP, COPE, palpitations. Left hemiparesis is completely resolved and he recalls at least 2 prior episodes where only his left arm was affected lasting less than 10 minutes. Family History: Unchanged from Admission Social History: Unchanged from Admission Past Medical History: Unchanged from Admission Objective Active Medications: Acetaminophen (Tylenol Tab*) 650 mg PO Q4H PRN PRN Reason: FEVER/PAIN Albuterol (Ventolin 2.5 Mg/3 Ml Neb.Kaitlyn*) 2.5 mg INH Q2H PRN PRN Reason: SOB/WHEEZING Albuterol/Ipratropium (Duoneb (Albuterol 2.5 Mg/Ipratropium 0.5 Mg)) 1 neb INH Q2H PRN PRN Reason: SOB/WHEEZING Aspirin (Aspirin 81 Mg Chew Tab*) 81 mg PO DAILY [facility] Last Admin: 07/07/17 08:40 Dose: 81 mg Heparin Sodium (Porcine) (Heparin Vial(*)) 5,000 units SUBCUT Q8HR [facility] Last Admin: 07/07/17 14:30 Dose: 5,000 units Sodium Chloride (Ns 0.9% 1000 Ml*) 1,000 mls @ 100 mls/hr IV PER RATE [facility] Last Admin: 07/06/17 23:09 Dose: 100 mls/hr Azithromycin 500 mg/ Sodium (Chloride) 250 mls @ 250 mls/hr IVPB Q24H [facility] Last Admin: 07/06/17 23:08 Dose: 250 mls/hr Ceftriaxone Sodium 2,000 mg/ (Sodium Chloride) 20 mls @ 40 mls/hr IVPB Q24H [facility] Last Admin: 07/07/17 00:05 Dose: 40 mls/hr Metronidazole/Sodium Chloride (Flagyl 500 Mg Ivpb*) 500 mg in 100 mls @ 100 mls /hr IVPB Q12H [facility] Last Admin: 07/07/17 10:32 Dose: 100 mls/hr Ondansetron HCl (Zofran Inj*) 4 mg IV Q6H PRN PRN Reason: NAUSEA Vital Signs - 8 hr 07/07/17 07/07/17 07/07/17 09:12 09:13 09:32 Temperature Pulse Rate 101 102 101 Respiratory 39 23 Rate Blood Pressure 139/72 (mmHg) O2 Sat by Pulse 99 97 98 Oximetry 07/07/17 07/07/17 07/07/17 10:21 10:42 15:22 Temperature 98.4 F 98.6 F Pulse Rate 97 94 Respiratory 20 20 18 Rate Blood Pressure 109/63 131/60 (mmHg) O2 Sat by Pulse 100 97 Oximetry Oxygen Devices in Use Now: Nasal Cannula - 3 liters Appearance: Elderly male lying in bed in NAD. Eyes: No Scleral Icterus Ears/Nose/Mouth/Throat: Mucous Membranes Moist Neck: Trachea Midline Respiratory: Symmetrical Chest Expansion and Respiratory Effort, - - BS+ bilaterally with wheezes on the right Cardiovascular: RRR - Normal S1 and S2 Abdominal: NL Sounds; No Tenderness; No Distention Extremities: No Edema Neurological: Alert and Oriented x 3 Result Diagrams: 07/07/17 06:05 07/07/17 06:05 Assess/Plan/Problems-Billing Assessment: Mr. Love is an 86 yo M with PMH of prior tobacco abuse, right lung abscess in 2011, who presented to ED with c/o left sided weakness and cough, found to have possible TIA and recurrent right lung abscess. - Patient Problems (1) Sepsis Comment: - Presentation compatible with sepsis with tachycardia and leukocytosis. - Source is right lung abscess. (2) Abscess of right lung with pneumonia Code(s): J85.1 - ABSCESS OF LUNG WITH PNEUMONIA SNOMED Code(s): 588055748 Comment: - Patient was diagnosed in 2011, culture grew Strep intermedius and patient was treated with antibiotics. - Blood and sputum cultures pending. - Pulm consultation appreciated. - For CT chest today. - Continue Ceftriaxone, Zithromax, and Metronidazole. (3) Cerebrovascular accident, embolic Comment: - Patient describes prior episodes of left arm weakness lasting 10 minutes. Yesterday, he experienced left arm/leg weakness, lasting hours. This is now resolved. - MRI brain shows embolic CVAs and CTA showed 70% SUMAYA stenosis and 50% LICA stenosis. - There is concern brain lesions could be septic emboli - anticoagulation contraindicated at this time due to high risk of bleeding. Will check transesophagel echocardiogram. - Neurology input appreciated. - LDL 97. - Continue Aspirin and statin. (4) DVT prophylaxis Comment: - SQ heparin. (5) DNR (do not resuscitate) Status and Disposition: Inpatient for management of sepsis, right lung abscess, and embolic CVAs.
[2017-07-07] MEDS ORDERED: Levofloxacin 750 MG IVPREMIX(* 750 MG/150 ML BAG IVPB SCH (18:00)
[2017-07-07] MEDS: Atorvastatin* 40 MG TAB PO SCH (20:29)
[2017-07-07] MEDS: Azithromycin IV(*) 500 MG in NS 0.9% 250 ML* 250 ML IVPB SCH (22:56)
[2017-07-08] MEDS: Heparin VIAL(*) 5000 UNITS/ML VIAL (FIVE THOUSAND) SUBCUT SCH ×3 (06:11→22:50)
[2017-07-08 06:57] LABS: ABS Basophils 0 10^3/ul (0-0.2); ABS Eosinophils 0 10^3/ul (0-0.6); ABS Lymphocytes 0.7 10^3/ul (1.0-4.8); ABS Monocytes 0.9 10^3/ul (0-0.8); ABS Neutrophils 8.4 10^3/ul (1.5-7.7); ABS Nucleated RBC 0 10^3/ul; Eosinophil % 0.4 % (0-6); Hematocrit 30 % (42-52); Hemoglobin 10.1 g/dl (14.0-18.0); Lymphocyte % 6.7 % (25-47); Mean Corpuscular HGB Conc 34 g/dl (31-36); Mean Corpuscular Hemoglobin 33 pg (27-31); Mean Corpuscular Volume 97 fL (80-94); Mean Platelet Volume 6.4 um3 (7.4-10.4); Nucleated Red Blood Cells % 0.1; Platelet Count 315 10^3/ul (150-450); Red Blood Count 3.08 10^6/ul (4.0-5.4); Red Cell Distribution Width 13 % (10.5-15)
[2017-07-08 06:58] LABS: EGFR Non-African American 138.3 (>60)
[2017-07-08] MEDS: metroNIDAZOLE IV 500 MG/100ML* 500 MG/100 ML BAG IVPB SCH ×2 (08:14→21:23)
[2017-07-08] MEDS: Aspirin 81 mg CHEW TAB* 81 MG TAB.CHEW PO SCH (08:14)
[2017-07-08 11:39] LABS: Urine Appearance Clear; Urine Blood 2+ (Negative); Urine Color Yellow; Urine Ketones Negative (Negative); Urine Protein Negative (Negative); Urine Specific Gravity 1.019 (1.010-1.030); Urine Urobilinogen Negative (Negative)
--- NOTE | 2017-07-08 13:53 | PN ---
Progress Note - Progress Note Date of Service: 07/08/17 SOAP: Numerology progress note Date of service: 07/08/17 Subjective: Patient feels asymptomatic and feels well today. There is no report of weakness in the arms or legs. Is upset that his echo has not been completed yet. Objective: Vital Signs Temp Pulse Resp BP Pulse Ox 99.4 F 119 20 140/65 90 07/08/17 11:02 07/08/17 11:02 07/08/17 11:02 07/08/17 11:02 07/08/17 11:02 Current Medications Acetaminophen (Tylenol Tab*) 650 mg PO Q4H PRN PRN Reason: FEVER/PAIN Albuterol (Ventolin 2.5 Mg/3 Ml Neb.Kaitlyn*) 2.5 mg INH Q2H PRN PRN Reason: SOB/WHEEZING Albuterol/Ipratropium (Duoneb (Albuterol 2.5 Mg/Ipratropium 0.5 Mg)) 1 neb INH Q2H PRN PRN Reason: SOB/WHEEZING Aspirin (Aspirin 81 Mg Chew Tab*) 81 mg PO DAILY [facility] Last Admin: 07/08/17 08:14 Dose: 81 mg Atorvastatin Calcium (Lipitor*) 40 mg PO 2100 [facility] Last Admin: 07/07/17 20:29 Dose: 40 mg Heparin Sodium (Porcine) (Heparin Vial(*)) 5,000 units SUBCUT Q8HR [facility] Last Admin: 07/08/17 13:22 Dose: 5,000 units Sodium Chloride (Ns 0.9% 1000 Ml*) 1,000 mls @ 100 mls/hr IV PER RATE [facility] Last Admin: 07/06/17 23:09 Dose: 100 mls/hr Ceftriaxone Sodium 2,000 mg/ (Sodium Chloride) 20 mls @ 40 mls/hr IVPB Q24H [facility] Last Admin: 07/07/17 20:29 Dose: 40 mls/hr Metronidazole/Sodium Chloride (Flagyl 500 Mg Ivpb*) 500 mg in 100 mls @ 100 mls /hr IVPB Q12H [facility] Last Admin: 07/08/17 08:14 Dose: 100 mls/hr Azithromycin 500 mg/ Sodium (Chloride) 250 mls @ 250 mls/hr IVPB Q24H [facility] Last Admin: 07/07/17 22:56 Dose: 250 mls/hr Ondansetron HCl (Zofran Inj*) 4 mg IV Q6H PRN PRN Reason: NAUSEA On exam Alert and oriented x3, speech normal. Pupils symmetric and reactive to light. Extraocular movements intact with no nystagmus. Face symmetric, tongue is in midline, palate elevates upward symmetrically. Muscle tone and bulk normal, motor strength 5/5 throughout There is only subtle tremor in the left finger to nose with no clear dysmetria. Assessment and Plan: 86-year-old male presented with weakness in the left arm on 07/06/17 which improved to an NIHSS of 0. 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 CT angiogram of the head and neck shows carotid 70% stenosis in the right carotid bifurcation and 50% in the left carotid bifurcation. One concern at this time remains septic emboli; plan is for MOE. No anti-coagulation at this point yet as the risk of hemorrhage might be higher if these are septic emboli. Based on the further workup may need CEA after the subacute phase. Continue aspirin and statins.
--- NOTE | 2017-07-08 16:28 | PN ---
Subjective Date of Service: 07/08/17 Interval History: Very aggravated that he is still in the hospital and that ECHO has not occurred yet. Threatening to leave AMA. "bored" HR to 130-140s when in bathroom. Afebrile. Tmax 99.5. coughing for 2 months, unchanged. wbc improved 10.0 from 16.2. Family History: Unchanged from Admission Social History: Unchanged from Admission Past Medical History: Unchanged from Admission Objective Active Medications: Acetaminophen (Tylenol Tab*) 650 mg PO Q4H PRN PRN Reason: FEVER/PAIN Albuterol (Ventolin 2.5 Mg/3 Ml Neb.Kaitlyn*) 2.5 mg INH Q2H PRN PRN Reason: SOB/WHEEZING Albuterol/Ipratropium (Duoneb (Albuterol 2.5 Mg/Ipratropium 0.5 Mg)) 1 neb INH Q2H PRN PRN Reason: SOB/WHEEZING Aspirin (Aspirin 81 Mg Chew Tab*) 81 mg PO DAILY [facility] Last Admin: 07/08/17 08:14 Dose: 81 mg Atorvastatin Calcium (Lipitor*) 40 mg PO 2100 [facility] Last Admin: 07/07/17 20:29 Dose: 40 mg Heparin Sodium (Porcine) (Heparin Vial(*)) 5,000 units SUBCUT Q8HR [facility] Last Admin: 07/08/17 13:22 Dose: 5,000 units Sodium Chloride (Ns 0.9% 1000 Ml*) 1,000 mls @ 100 mls/hr IV PER RATE [facility] Last Admin: 07/06/17 23:09 Dose: 100 mls/hr Ceftriaxone Sodium 2,000 mg/ (Sodium Chloride) 20 mls @ 40 mls/hr IVPB Q24H [facility] Last Admin: 07/07/17 20:29 Dose: 40 mls/hr Metronidazole/Sodium Chloride (Flagyl 500 Mg Ivpb*) 500 mg in 100 mls @ 100 mls /hr IVPB Q12H [facility] Last Admin: 07/08/17 08:14 Dose: 100 mls/hr Azithromycin 500 mg/ Sodium (Chloride) 250 mls @ 250 mls/hr IVPB Q24H [facility] Last Admin: 07/07/17 22:56 Dose: 250 mls/hr Ondansetron HCl (Zofran Inj*) 4 mg IV Q6H PRN PRN Reason: NAUSEA Vital Signs - 8 hr 07/08/17 07/08/17 07/08/17 08:38 11:02 15:28 Temperature 99.5 F 99.4 F 98.2 F Pulse Rate 79 119 111 Respiratory 28 20 20 Rate Blood Pressure 132/75 140/65 113/68 (mmHg) O2 Sat by Pulse 90 95 Oximetry Oxygen Devices in Use Now: Nasal Cannula Appearance: NAD Eyes: No Scleral Icterus, PERRLA Ears/Nose/Mouth/Throat: NL Teeth, Lips, Gums, Mucous Membranes Moist Neck: NL Appearance and Movements; NL JVP Respiratory: - - rhonchi b/l upper lung butt R>L. Cardiovascular: NL Sounds; No Murmurs; No JVD, RRR Abdominal: NL Sounds; No Tenderness; No Distention, No Hepatosplenomegaly Extremities: No Edema, No Clubbing, Cyanosis Skin: No Rash or Ulcers, No Nodules or Sclerosis Neurological: Alert and Oriented x 3, - - 4+/5 left bicep. otherwise 5/5 b/l UE LE. CN II- XII intact. Nutrition: Taking PO's Result Diagrams: 07/08/17 06:10 07/08/17 06:10 Additional Lab and Data: Laboratory Results - last 24 hr 07/08/17 07/08/17 07/08/17 06:10 06:10 08:20 WBC 10.0 RBC 3.08 L Hgb 10.1 L Hct 30 L MCV 97 H MCH 33 H MCHC 34 RDW 13 Plt Count 315 MPV 6.4 L Neut % (Auto) 84.1 H Lymph % (Auto) 6.7 L [place] % (Auto) 8.6 H Eos % (Auto) 0.4 Baso % (Auto) 0.2 Absolute Neuts (auto) 8.4 H Absolute Lymphs (auto) 0.7 L Absolute Monos (auto) 0.9 H Absolute Eos (auto) 0 Absolute Basos (auto) 0 Absolute Nucleated RBC 0 Nucleated RBC % 0.1 Sodium 132 L Potassium 3.8 Chloride 98 L Carbon Dioxide 31 Anion Gap 3 BUN 8 Creatinine 0.56 L Est GFR ( Amer) 177.9 Est GFR (Non-Af Amer) 138.3 BUN/Creatinine Ratio 14.3 Glucose 100 Calcium 8.6 Urine Color Yellow Urine Appearance Clear Urine pH 5.0 Ur Specific [place] 1.019 Urine Protein Negative Urine Ketones Negative Urine Blood 2+ A Urine Nitrate Negative Urine Bilirubin Negative Urine Urobilinogen Negative Ur Leukocyte Esterase Negative Urine WBC (Auto) Trace(0-5/hpf) Urine RBC (Auto) Trace(0-2/hpf) Urine Bacteria Absent Urine Glucose Negative Microbiology and Other Data: Microbiology 07/06/17 17:50 Blood Venous Aerobic Blood Culture - Preliminary No Growth Day 1 07/06/17 17:50 Blood Venous Anaerobic Blood Culture - Preliminary No Growth Day 1 07/06/17 17:50 Blood Venous Aerobic Blood Culture - Preliminary No Growth Day 1 07/06/17 17:50 Blood Venous Anaerobic Blood Culture - Preliminary No Growth Day 1 07/06/17 08:00 Sputum Expectorated Gram Stain - Final 07/06/17 08:00 Respiratory - Expectorated Sputum Gram Stain - Final 07/06/17 21:40 Urine Legionella Urinary Antigen - Final Negative Legionella Antigen 07/06/17 21:40 Urine Streptococcus pneumoniae Ag Screen - Final Negative S. pneumo Antigen 07/06/17 20:30 Nasal Nasal Screen MRSA (PCR)(NAVA) - Final Mrsa Not Detected 07/06/17 21:50 Nasopharyngeal Influenza Types A,B Antigen (NAVA) - Final Specimen received for Influenza A/B Molecular testing Assess/Plan/Problems-Billing Assessment: 86 yo M with PMH of prior tobacco abuse, right lung abscess in 2011 (growing Strep Intermedius), who presented to ED with c/o left sided weakness and productive cough (x2 months), found to have CVA and right lung cavitary lesion, necrotic infiltrate, bullae. concern for embolic, possibly septic emboli. Awaiting MOE. - Patient Problems (1) Sepsis Current Visit: Yes Status: Acute Comment: - Presentation compatible with sepsis with tachycardia and leukocytosis. - Source is right lung abscess. - Rule out IE with MOE given concern for embolic CVA. (2) Abscess of right lung with pneumonia Current Visit: Yes Status: Acute Code(s): J85.1 - ABSCESS OF LUNG WITH PNEUMONIA SNOMED Code(s): 605722593 Comment: - Patient was diagnosed in 2011, culture grew Strep intermedius and patient was treated with antibiotics. - Blood and sputum cultures NGTD. Urine antigens negative. MRSA negative. - Pulm consultation appreciated. - Continue Ceftriaxone, Zithromax, and Metronidazole. - ID was consulted. (3) Cerebrovascular accident, embolic Current Visit: Yes Status: Acute Code(s): I63.9 - CEREBRAL INFARCTION, UNSPECIFIED SNOMED Code(s): 807233618 Comment: - Patient describes prior episodes of left arm weakness lasting 10 minutes. day of admission, he experienced left arm/leg weakness, lasting hours. This is now resolved. - MRI brain shows embolic CVAs and CTA showed 70% SUMAYA stenosis and 50% LICA stenosis. - There is concern brain lesions could be septic emboli - anticoagulation contraindicated at this time due to high risk of bleeding. - Transesophagel echocardiogram ordered. TTE was not able to be done today. will cancel. - Neurology input appreciated. - LDL 97. - Continue Aspirin and statin. (4) DVT prophylaxis Current Visit: Yes Status: Acute Code(s): GIF4924 - SNOMED Code(s): 632221418 Comment: - SQ heparin. (5) Full code status Current Visit: Yes Status: Acute Code(s): Z78.9 - OTHER SPECIFIED HEALTH STATUS SNOMED Code(s): 449517341 Comment: katrina RAHMAN filled out 07/08. He now wants CPR and trial intubation. Status and Disposition: Inpatient for management of sepsis, right lung abscess, and embolic CVAs.
[2017-07-08] MEDS: SODIUM CHLORIDE IVPB SCH ×2 (20:42)
[2017-07-08] MEDS: CEFTRIAXONE IVPB SCH ×2 (20:42)
[2017-07-08] MEDS: Atorvastatin* 40 MG TAB PO SCH (20:42)
[2017-07-08] MEDS: Azithromycin IV(*) 500 MG in NS 0.9% 250 ML* 250 ML IVPB SCH (22:48)
[2017-07-09 05:46] LABS: ABS Basophils 0 10^3/ul (0-0.2); ABS Eosinophils 0.1 10^3/ul (0-0.6); ABS Lymphocytes 0.6 10^3/ul (1.0-4.8); ABS Neutrophils 9.5 10^3/ul (1.5-7.7); ABS Nucleated RBC 0 10^3/ul; Eosinophil % 0.6 % (0-6); Hematocrit 29 % (42-52); Hemoglobin 9.7 g/dl (14.0-18.0); Lymphocyte % 5.4 % (25-47); Mean Corpuscular HGB Conc 34 g/dl (31-36); Mean Corpuscular Hemoglobin 33 pg (27-31); Mean Corpuscular Volume 97 fL (80-94); Mean Platelet Volume 6.1 um3 (7.4-10.4); Nucleated Red Blood Cells % 0; Platelet Count 327 10^3/ul (150-450); Red Blood Count 2.98 10^6/ul (4.0-5.4); Red Cell Distribution Width 13 % (10.5-15); White Blood Count 11.1 10^3/ul (3.5-10.8)
[2017-07-09] MEDS: Heparin VIAL(*) 5000 UNITS/ML VIAL (FIVE THOUSAND) SUBCUT SCH ×3 (06:11→20:55)
--- NOTE | 2017-07-09 08:30 | PN ---
Subjective Date of Service: 07/09/17 Interval History: No new issues overnight. Remains frustrated MOE did not happen yesterday but planned for today. Denies any new focal numbness, tingling or weakness. His presenting symptoms have resolved. He feels "fine." No significant shortness of air at this time. He is ambulating with walker. Afebrile since yesterday afternoon. WBC overall improved from admission Family History: Unchanged from Admission Social History: Unchanged from Admission Past Medical History: Unchanged from Admission Objective Active Medications: Acetaminophen (Tylenol Tab*) 650 mg PO Q4H PRN PRN Reason: FEVER/PAIN Albuterol (Ventolin 2.5 Mg/3 Ml Neb.Kaitlyn*) 2.5 mg INH Q2H PRN PRN Reason: SOB/WHEEZING Albuterol/Ipratropium (Duoneb (Albuterol 2.5 Mg/Ipratropium 0.5 Mg)) 1 neb INH Q2H PRN PRN Reason: SOB/WHEEZING Aspirin (Aspirin 81 Mg Chew Tab*) 81 mg PO DAILY [facility] Last Admin: 07/08/17 08:14 Dose: 81 mg Atorvastatin Calcium (Lipitor*) 40 mg PO 2100 [facility] Last Admin: 07/08/17 20:42 Dose: 40 mg Heparin Sodium (Porcine) (Heparin Vial(*)) 5,000 units SUBCUT Q8HR [facility] Last Admin: 07/09/17 06:11 Dose: 5,000 units Sodium Chloride (Ns 0.9% 1000 Ml*) 1,000 mls @ 100 mls/hr IV PER RATE [facility] Last Admin: 07/06/17 23:09 Dose: 100 mls/hr Ceftriaxone Sodium 2,000 mg/ (Sodium Chloride) 20 mls @ 40 mls/hr IVPB Q24H [facility] Last Admin: 07/08/17 20:42 Dose: 40 mls/hr Metronidazole/Sodium Chloride (Flagyl 500 Mg Ivpb*) 500 mg in 100 mls @ 100 mls /hr IVPB Q12H [facility] Last Admin: 07/08/17 21:23 Dose: 100 mls/hr Azithromycin 500 mg/ Sodium (Chloride) 250 mls @ 250 mls/hr IVPB Q24H [facility] Last Admin: 07/08/17 22:48 Dose: 250 mls/hr Ondansetron HCl (Zofran Inj*) 4 mg IV Q6H PRN PRN Reason: NAUSEA Vital Signs 07/08/17 07/08/17 07/08/17 08:38 11:02 15:28 Temperature 99.5 F 99.4 F 98.2 F Pulse Rate 79 119 111 Respiratory 28 20 20 Rate Blood Pressure 132/75 140/65 113/68 (mmHg) O2 Sat by Pulse 90 95 Oximetry 07/08/17 07/08/17 07/08/17 19:10 23:15 23:23 Temperature 98.2 F 98.6 F Pulse Rate 114 100 Respiratory 20 18 18 Rate Blood Pressure 110/66 116/67 (mmHg) O2 Sat by Pulse 96 96 96 Oximetry 07/09/17 07/09/17 03:19 04:12 Temperature 97.8 F Pulse Rate 98 102 Respiratory 18 20 Rate Blood Pressure 132/83 (mmHg) O2 Sat by Pulse 95 96 Oximetry Oxygen Devices in Use Now: Nasal Cannula Neurology Exam: General: Awake, Alert, Oriented x3 HEENT: Normocephalic/atraumatic, sclera anicteric, mucous membranes moist Neck: Supple Chest: Clear to auscultation bilaterally Cardiovascular: Irreg irreg Abdomen: Soft, nontender/nondistended Extremities: No clubbing, cyanosis, or edema. Neurological Findings: Awake, Alert, Oriented x3 Speech: fluent without dysarthria, repetition intact Cranial Nerve: PEERL, EOM intact, VFF, no nystagmus, face symmetric bilaterally , facial sensation intact, hearing intact to finger rub bilaterally, palate elevates symmetrically, tongue midline Motor: 5/5 throughout, proximal and distal extremities x4 tone/bulk normal, no drift throughout Sensation: intact to LT/PP bilaterally upper and lower extremities Deep Tendon Reflex: 1+ symmetric in the upper/lower extremities, Babinski - upgoing bilaterally Finger to nose, rapid alternating movements intact without tremor, no dysdiadochokinesia Gait: Did not walk this am but has been walking with a walker without difficulty Result Diagrams: 07/09/17 05:09 07/08/17 06:10 Additional Lab and Data: Laboratory Results - last 24 hr 07/08/17 07/08/17 07/08/17 06:10 06:10 08:20 WBC 10.0 RBC 3.08 L Hgb 10.1 L Hct 30 L MCV 97 H MCH 33 H MCHC 34 RDW 13 Plt Count 315 MPV 6.4 L Neut % (Auto) 84.1 H Lymph % (Auto) 6.7 L [place] % (Auto) 8.6 H Eos % (Auto) 0.4 Baso % (Auto) 0.2 Absolute Neuts (auto) 8.4 H Absolute Lymphs (auto) 0.7 L Absolute Monos (auto) 0.9 H Absolute Eos (auto) 0 Absolute Basos (auto) 0 Absolute Nucleated RBC 0 Nucleated RBC % 0.1 Sodium 132 L Potassium 3.8 Chloride 98 L Carbon Dioxide 31 Anion Gap 3 BUN 8 Creatinine 0.56 L Est GFR ( Amer) 177.9 Est GFR (Non-Af Amer) 138.3 BUN/Creatinine Ratio 14.3 Glucose 100 Calcium 8.6 Urine Color Yellow Urine Appearance Clear Urine pH 5.0 Ur Specific [place] 1.019 Urine Protein Negative Urine Ketones Negative Urine Blood 2+ A Urine Nitrate Negative Urine Bilirubin Negative Urine Urobilinogen Negative Ur Leukocyte Esterase Negative Urine WBC (Auto) Trace(0-5/hpf) Urine RBC (Auto) Trace(0-2/hpf) Urine Bacteria Absent Urine Glucose Negative Microbiology and Other Data: Microbiology 07/06/17 17:50 Blood Venous Aerobic Blood Culture - Preliminary No Growth Day 1 07/06/17 17:50 Blood Venous Anaerobic Blood Culture - Preliminary No Growth Day 1 07/06/17 17:50 Blood Venous Aerobic Blood Culture - Preliminary No Growth Day 1 07/06/17 17:50 Blood Venous Anaerobic Blood Culture - Preliminary No Growth Day 1 07/06/17 08:00 Sputum Expectorated Gram Stain - Final 07/06/17 08:00 Respiratory - Expectorated Sputum Gram Stain - Final 07/06/17 21:40 Urine Legionella Urinary Antigen - Final Negative Legionella Antigen 07/06/17 21:40 Urine Streptococcus pneumoniae Ag Screen - Final Negative S. 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 MOE today to look for evidence of thrombus or valve vegetation. Presentation concerning for possible cardioembolic source. 2. On ASA, Statin, will ultimately need full strength anticoagulation but cannot rule out septic embolic at this point, will hold for now and continue ASA 3. On Abx for pulmonary abscess, r/o valvular vegetation with MOE, adjust Abx as necessary per primary team. Blood cultures negative X 2 days. WBC improveed 4. Carotid stenosis: Could be source of emboli, will need o/p evaluation, consider CEA in near future Will continue to follow closely and make further recs as necessary after the MOE
[2017-07-09] MEDS ORDERED: Naloxone* 0.4 MG/ML 1 ML VIAL ONE ×2 (08:59→10:33)
[2017-07-09] MEDS ORDERED: fentaNYL* 50 MCG/ML 2 ML VIAL (100 MCG VIAL) ONE ×2 (08:59→10:33)
[2017-07-09] MEDS ORDERED: Lidocaine 2% VISCOUS* 15 ML UDC ONE (08:59)
[2017-07-09] MEDS ORDERED: Flumazenil* 0.1 MG/ML 5 ML MDV ONE ×2 (08:59→10:33)
[2017-07-09] MEDS ORDERED: Midazolam* 1 MG/ML 10 ML VIAL (10 MG) ONE ×2 (09:00→10:33)
[2017-07-09] MEDS ORDERED: Perflutren Lipid Microsphere* 3 ML VIAL ONE (10:10)
--- NOTE | 2017-07-09 13:14 | ECHO ---
Patient: THERON MIRANDA [facility] Rec#: [id number] : 1930 Date: 07/09/2017 Age: 86y Height: 162.56 cm / 64.0 in Weight: 52.16 kg / 115.0 lbs Sex: M BSA: 1.55 Room#: 452 Admit Date#: 07/06/2017 Type: Inpatient Referring: Vladimir Rodriguez Reading: Cordell Plata MD Shot Peening Operator: Irish Cano [facility] Transthoracic Echocardiogram Indication: A-fib BP: 129/69 HR: 112 Rhythm: A-Fib Findings History: TIA/CVA, recurrent lung abcess,former smoker. Technical Comments: The study is technically limited due to the patient's smoking history. Definity used to enhance imagges. Left Ventricle: The left ventricular chamber size is decreased. Global left ventricular wall motion and contractility are within normal limits. There is normal left ventricular systolic function. The estimated ejection fraction is 55-60%. The assessment of diastolic function is non-diagnostic. Left Atrium: The left atrial chamber size is normal. Right Ventricle: The right ventricle is not well visualized. Right Atrium: The right atrium is not well visualized. Aortic Valve: The aortic valve is trileaflet. The aortic valve leaflets are mildly thickened. There is no evidence of aortic regurgitation. There is no evidence of aortic stenosis. Mitral Valve: The mitral valve leaflets are mildly thickened. There is mild mitral regurgitation. There is no evidence of mitral stenosis. Tricuspid Valve: The tricuspid valve structure is not well visualized. Pulmonic Valve: The pulmonic valve appears normal. There is a trace pulmonic regurgitation. There is no pulmonic stenosis. Pericardium: The pericardium appears normal. A left pleural effusion is present. There is a moderate pleural effusion. Aorta: The ascending aorta is not well visualized. The aortic arch is not well visualized. There is mild dilatation of the aortic root. Pulmonary Artery: The main pulmonary artery appears normal. Venous: The venous system is not well visualized. Contrast: Definity was used to optimize study. A total of 6 ml used. Intravenous contrast was used to enhance endocardial border definition. Conclusions Global left ventricular wall motion and contractility are within normal limits. There is normal left ventricular systolic function. The estimated ejection fraction is 55-60%. The aortic valve leaflets are mildly thickened. There is no evidence of aortic regurgitation. There is no evidence of aortic stenosis. There is mild mitral regurgitation. The tricuspid valve structure is not well visualized. The pericardium appears normal. A left pleural effusion is present. Measurements Name Value Normal Range RVIDd (AP) 2D 2.5 cm (0.9 - 2.6) IVSd (2D) 1 cm (0.6 - 1) LVPWd (2D) 1 cm (0.6 - 1) LVIDd (2D) 3.4 cm (3.6 - 5.4) LVIDs (2D) 2.7 cm - LV FS (2D) 21 % (25 - 45) EF Teichholz (2D) 43.25 % - Aortic Annulus 1.7 cm (1.4 - 2.6) Ao root diameter (2D) 3.6 cm (2.1 - 3.5) LA dimension (AP) 2D 2.7 cm (2.3 - 3.8) Name Value Normal Range MV E-wave Vmax 0.9 m/sec - MV deceleration time 181 msec - Name Value Normal Range AV Vmax 1 m/sec - AV VTI 28.5 cm - AV peak gradient 3.84 mmHg - AV mean gradient 1.66 mmHg - LVOT Vmax 0.6 m/sec - LVOT VTI 15.3 cm - LVOT peak gradient 1.55 mmHg - LVOT mean gradient 0.65 mmHg - Name Value Normal Range PV Vmax 0.7 m/sec - PV peak gradient 2.12 mmHg -
--- NOTE | 2017-07-09 13:17 | TEE ---
Patient: THERON MIRANDA [facility] Rec#: [id number] : 1930 Date: 07/09/2017 Age: 86y Height: 162.56 cm / 64.0 in Weight: 52.16 kg / 115.0 lbs Sex: M BSA: 1.55 Room#: 452 Type: Inpatient Referring: Vladimir Rodriguez Performing: Cordell Plata MD Reading: Cordell Plata MD Health Promotion Educator: Irish Cano NAIMA Nurse: Deonna Mann CC: Caitlyn Tyler MD Transesophageal Echocardiogram Indication: A-fib//CVA BP: 129/69 HR: 114 Rhythm: NSR with PACs Findings History: Right lung abcess,former smoker,TIA/CVA,a-fib. Technical Comments: The study quality is good. Left Ventricle: The left ventricular chamber size is normal. Global left ventricular wall motion and contractility are within normal limits. There is normal left ventricular systolic function. The estimated ejection fraction is 55-60%. No intracardiac mass is observed. Left Atrium: The left atrium is moderately dilated. No thrombus is visualized within the left atrium. There is no thrombus visualized in the left atrial appendage. Right Ventricle: The right ventricular cavity size is normal. The right ventricular global systolic function is normal. No mass is visualized in the right ventricle. No thrombus is visualized in the right ventricle. Right Atrium: The right atrial cavity size is normal. A prominent chiari network is noted in the right atrium. There were late bubbles seen in the left atrium.which could represent pulmonary A-V shunting A patent foramen ovale is not demonstrated by color Doppler. There is evidence of an atrial septal aneurysm. No thrombus is visualized in the right atrium. Aortic Valve: The aortic valve is trileaflet. There is evidence of aortic sclerosis without stenosis. There is no evidence of aortic regurgitation. There is no evidence of aortic stenosis. There is no aortic vegetation present. Mitral Valve: The mitral valve leaflets appear normal. There is mild mitral regurgitation. There is no evidence of mitral stenosis. No vegetation is observed on the mitral valve. Tricuspid Valve: The tricuspid valve leaflets are normal. There is a physiologic tricuspid regurgitation. No vegetation is observed on the tricuspid valve. Pulmonic Valve: The pulmonic valve appears normal. There is no evidence of pulmonic regurgitation. There is no pulmonic stenosis. No vegetation is observed on the pulmonic valve. Pericardium: The pericardium appears normal. Aorta: There is mild dilatation of the ascending aorta. There is no dilatation of the aortic arch. There is mild dilatation of the aortic root. Pulmonary Artery: The main pulmonary artery appears normal. Venous: The bicaval view was obtained and appears normal. The pulmonary veins appear normal in size. 1 out of 4 seen. Attempted to view veins on the right. The flow pattern of the pulmonary veins appear normal. MOE Procedures: History and physical as well as labs were reviewed. The patient was in a fasting state. Risks and benefits of the procedure, including alternatives, were discussed and written informed consent was obtained. The patient and/or their health care customer development representative expressed understanding of the procedure, risks and benefits. Baseline and continuous monitoring of blood pressure, heart rate, pulse oximetry and heart rhythm was performed throughout the procedure. The appropriate time-out procedure was performed as per [facility] protocol. The patient was placed in the left lateral decubitus position. The patient's posterior pharynx was anesthetized with 20ml of 2% viscous lidocaine. The patient received IV Midazolam with a total dose of 4 mg. The patient received IV Fentanyl with a total dose of 25 mcg. An oral bite block was inserted for protection of oral dentition. The multiplane transesophageal echocardiogram probe was inserted through the posterior oropharynx and advanced into the esophagus without difficulty. Transgastric views not attempted to facilitate patient comfort. Multiple 2D images were obtained of the heart and its related structures. Color flow Doppler was used for evaluation. Spectral Doppler was also used. The atrial septum was interrogated with color flow Doppler. At the conclusion of the procedure the probe was removed with continuous suction without complications. The patient tolerated the procedure with no apparent complications. Conclusions Global left ventricular wall motion and contractility are within normal limits. There is normal left ventricular systolic function. The estimated ejection fraction is 55-60%. No thrombus is visualized within the left atrium. There is no thrombus visualized in the left atrial appendage. The right ventricular global systolic function is normal. A patent foramen ovale is not demonstrated by color Doppler. There were late bubbles seen in the left atrium.which could represent pulmonary A-V shunting There is evidence of aortic sclerosis without stenosis. There is no aortic vegetation present. There is mild mitral regurgitation. No vegetation is observed on the mitral valve. There is a physiologic tricuspid regurgitation. No vegetation is observed on the tricuspid valve. The pericardium appears normal. Measurements Name Value Normal Range Aortic Annulus 2.1 cm (1.4 - 2.6) Ao root diameter (2D) 3.7 cm (2.1 - 3.5) Ascending Ao 3.6 cm (2.1 - 3.4)
[2017-07-09] MEDS: metroNIDAZOLE IV 500 MG/100ML* 500 MG/100 ML BAG IVPB SCH ×2 (14:05→14:26)
[2017-07-09] MEDS: Aspirin 81 mg CHEW TAB* 81 MG TAB.CHEW PO SCH (14:47)
[2017-07-09] MEDS: SODIUM CHLORIDE IVPB SCH ×2 (20:50)
[2017-07-09] MEDS: CEFTRIAXONE IVPB SCH ×2 (20:50)
[2017-07-09] MEDS: Atorvastatin* 40 MG TAB PO SCH (20:50)
[2017-07-09] MEDS: Azithromycin IV(*) 500 MG in NS 0.9% 250 ML* 250 ML IVPB SCH (21:34)
--- NOTE | 2017-07-09 22:22 | PN ---
Subjective Date of Service: 07/09/17 Interval History: Blood Cultures negative to date. found to have mask off and desat to 80s Tachycardia, P waves present with PACs vs Afib TTE and then MOE performed. no evidence of vegetation. drowsy post procedure. Family History: Unchanged from Admission Social History: Unchanged from Admission Past Medical History: Unchanged from Admission Objective Active Medications: Acetaminophen (Tylenol Tab*) 650 mg PO Q4H PRN PRN Reason: FEVER/PAIN Albuterol (Ventolin 2.5 Mg/3 Ml Neb.Kaitlyn*) 2.5 mg INH Q2H PRN PRN Reason: SOB/WHEEZING Albuterol/Ipratropium (Duoneb (Albuterol 2.5 Mg/Ipratropium 0.5 Mg)) 1 neb INH Q2H PRN PRN Reason: SOB/WHEEZING Aspirin (Aspirin 81 Mg Chew Tab*) 81 mg PO DAILY [facility] Last Admin: 07/09/17 14:47 Dose: Not Given Atorvastatin Calcium (Lipitor*) 40 mg PO 2100 [facility] Last Admin: 07/09/17 20:50 Dose: 40 mg Heparin Sodium (Porcine) (Heparin Vial(*)) 5,000 units SUBCUT Q8HR [facility] Last Admin: 07/09/17 20:55 Dose: 5,000 units Ceftriaxone Sodium 2,000 mg/ (Sodium Chloride) 20 mls @ 40 mls/hr IVPB Q24H [facility] Last Admin: 07/09/17 20:50 Dose: 40 mls/hr Azithromycin 500 mg/ Sodium (Chloride) 250 mls @ 250 mls/hr IVPB Q24H [facility] Last Admin: 07/09/17 21:34 Dose: 250 mls/hr Metronidazole/Sodium Chloride (Flagyl 500 Mg Ivpb*) 500 mg in 100 mls @ 100 mls /hr IVPB 0200,1400 [facility] Last Admin: 07/09/17 14:26 Dose: 100 mls/hr Ondansetron HCl (Zofran Inj*) 4 mg IV Q6H PRN PRN Reason: NAUSEA Warfarin Sodium (Coumadin Tab(*)) 5 mg PO DAILY@1700 [facility] PRN Reason: Protocol Vital Signs - 8 hr 07/09/17 07/09/17 15:54 20:03 Temperature 98.4 F 97.9 F Pulse Rate 94 118 Respiratory 18 20 Rate Blood Pressure 121/56 130/73 (mmHg) O2 Sat by Pulse 100 97 Oximetry Oxygen Devices in Use Now: None Appearance: NAD Ears/Nose/Mouth/Throat: NL Teeth, Lips, Gums Neck: NL Appearance and Movements; NL JVP Respiratory: Symmetrical Chest Expansion and Respiratory Effort, - - rhonchi diffusely but worse upper lobes. no wheezing. Cardiovascular: - - tachycardic with ectopy Abdominal: NL Sounds; No Tenderness; No Distention Extremities: No Edema, No Clubbing, Cyanosis Skin: No Rash or Ulcers Neurological: Alert and Oriented x 3, NL Sensation, NL Muscle Strength and Tone Nutrition: Taking PO's Result Diagrams: 07/09/17 05:09 07/08/17 06:10 Additional Lab and Data: Laboratory Results - last 24 hr 07/09/17 05:09 WBC 11.1 H RBC 2.98 L Hgb 9.7 L Hct 29 L MCV 97 H MCH 33 H MCHC 34 RDW 13 Plt Count 327 MPV 6.1 L Neut % (Auto) 85.0 H Lymph % (Auto) 5.4 L [place] % (Auto) 8.7 H Eos % (Auto) 0.6 Baso % (Auto) 0.3 Absolute Neuts (auto) 9.5 H Absolute Lymphs (auto) 0.6 L Absolute Monos (auto) 1.0 H Absolute Eos (auto) 0.1 Absolute Basos (auto) 0 Absolute Nucleated RBC 0 Nucleated RBC % 0 Microbiology and Other Data: Microbiology 07/06/17 17:50 Blood Venous Aerobic Blood Culture - Preliminary No Growth Day 3 07/06/17 17:50 Blood Venous Anaerobic Blood Culture - Preliminary No Growth Day 3 07/06/17 17:50 Blood Venous Aerobic Blood Culture - Preliminary No Growth Day 3 07/06/17 17:50 Blood Venous Anaerobic Blood Culture - Preliminary No Growth Day 3 07/08/17 08:20 Urine Urine Culture - Final No Growth (<1,000 CFU/mL) 07/06/17 08:00 Sputum Expectorated Gram Stain - Final 07/06/17 08:00 Sputum Expectorated Sputum Culture - Final Normal [place] 07/06/17 08:00 Respiratory - Expectorated Sputum Gram Stain - Final 07/06/17 21:40 Urine Legionella Urinary Antigen - Final Negative Legionella Antigen 07/06/17 21:40 Urine Streptococcus pneumoniae Ag Screen - Final Negative S. 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 MOE today to look for evidence of thrombus of valve vegetation. Presentation concerning for sepsis. 2. On ASA, Statin, will ultimately need full strength anticoagulation but cannot rule out septic embolic at this point, will hold for now and continue ASA 3. On Abx for pulmonary abscess, r/o valvular vegetation with MOE, adjust Abx as necessary per primary team. Blood cultures negative X 2 days. WBC improveed 4. Carotid stenosis: Could be source of emboli, will need o/p evaluation, consider CEA in near future Will continue to follow closely and make further recs as necessary after the MOE - Patient Problems (1) Sepsis Current Visit: Yes Status: Acute Comment: - Presentation compatible with sepsis with tachycardia and leukocytosis. - Source is right lung abscess. - Blood cultures are negative x 3 days. No evidence of vegatations on TTE or MOE. - ID concerned about recurrent strep intermedius vs nocardia vs actinomyces. will attempt see again tomorrow. (2) Abscess of right lung with pneumonia Current Visit: Yes Status: Acute Code(s): J85.1 - ABSCESS OF LUNG WITH PNEUMONIA SNOMED Code(s): 810331658 Comment: - Patient was diagnosed in 2011, culture grew Strep intermedius and patient was treated with antibiotics. - Blood and sputum cultures NGTD. Urine antigens negative. MRSA negative. - Pulm recs appreciated. - ID concerned about recurrent strep intermedius vs nocardia vs actinomyces. will attempt see again tomorrow. - Continue Ceftriaxone, Zithromax, and Metronidazole for now. (3) Cerebrovascular accident, embolic Current Visit: Yes Status: Acute Code(s): I63.9 - CEREBRAL INFARCTION, UNSPECIFIED SNOMED Code(s): 909547326 Comment: - Patient describes prior episodes of left arm weakness lasting 10 minutes. day of admission, he experienced left arm/leg weakness, lasting hours. This is now resolved. - MRI brain shows embolic CVAs and CTA showed 70% SUMAYA stenosis and 50% LICA stenosis. - atrial arrythmia on tele and EKG. - coumadin to start 07/10 per neuro. - Neurology input appreciated. - LDL 97. - Continue Aspirin and statin. (4) DVT prophylaxis Current Visit: Yes Status: Acute Code(s): GUC3499 - SNOMED Code(s): 787305832 Comment: - SQ heparin. (5) Full code status Current Visit: Yes Status: Acute Code(s): Z78.9 - OTHER SPECIFIED HEALTH STATUS SNOMED Code(s): 834076835 Comment: new MOLST filled out 07/08. He now wants CPR and trial intubation. Status and Disposition: Inpatient for management of sepsis, right lung abscess, and embolic CVAs.
[2017-07-10] MEDS: metroNIDAZOLE IV 500 MG/100ML* 500 MG/100 ML BAG IVPB SCH ×2 (03:11→13:03)
[2017-07-10] MEDS: Heparin VIAL(*) 5000 UNITS/ML VIAL (FIVE THOUSAND) SUBCUT SCH ×3 (05:50→21:30)
--- NOTE | 2017-07-10 08:04 | PN ---
Subjective Date of Service: 07/10/17 Interval History: Patient denies any issues overnight. Was sleepy after the MOE but resolved. He states he slept well and no issues reported. Tele continues to show A.fib. Patient denies any new stroke like symptoms. Left sided weakness resolved. He does continue to desat without O2. MOE: No thrombus visualized in the left atrium or left atrial appendage. EF 55 -60%. No PFO Family History: Unchanged from Admission Social History: Unchanged from Admission Past Medical History: Unchanged from Admission Objective Active Medications: Acetaminophen (Tylenol Tab*) 650 mg PO Q4H PRN PRN Reason: FEVER/PAIN Albuterol (Ventolin 2.5 Mg/3 Ml Neb.Kaitlyn*) 2.5 mg INH Q2H PRN PRN Reason: SOB/WHEEZING Albuterol/Ipratropium (Duoneb (Albuterol 2.5 Mg/Ipratropium 0.5 Mg)) 1 neb INH Q2H PRN PRN Reason: SOB/WHEEZING Aspirin (Aspirin 81 Mg Chew Tab*) 81 mg PO DAILY [facility] Last Admin: 07/09/17 14:47 Dose: Not Given Atorvastatin Calcium (Lipitor*) 40 mg PO 2100 [facility] Last Admin: 07/09/17 20:50 Dose: 40 mg Heparin Sodium (Porcine) (Heparin Vial(*)) 5,000 units SUBCUT Q8HR [facility] Last Admin: 07/10/17 05:50 Dose: 5,000 units Ceftriaxone Sodium 2,000 mg/ (Sodium Chloride) 20 mls @ 40 mls/hr IVPB Q24H [facility] Last Admin: 07/09/17 20:50 Dose: 40 mls/hr Azithromycin 500 mg/ Sodium (Chloride) 250 mls @ 250 mls/hr IVPB Q24H [facility] Last Admin: 07/09/17 21:34 Dose: 250 mls/hr Metronidazole/Sodium Chloride (Flagyl 500 Mg Ivpb*) 500 mg in 100 mls @ 100 mls /hr IVPB 0200,1400 [facility] Last Admin: 07/10/17 03:11 Dose: 100 mls/hr Ondansetron HCl (Zofran Inj*) 4 mg IV Q6H PRN PRN Reason: NAUSEA Warfarin Sodium (Coumadin Tab(*)) 5 mg PO DAILY@1700 [facility] PRN Reason: Protocol Vital Signs 04/12/1807/09/17 07/09/17 08:00 08:10 08:23 Temperature 98.1 F Pulse Rate 124 102 Respiratory 24 24 20 Rate Blood Pressure 150/81 (mmHg) O2 Sat by Pulse 96 96 Oximetry 07/09/17 07/09/17 07/09/17 13:58 15:54 20:00 Temperature 98.0 F 98.4 F Pulse Rate 93 94 Respiratory 18 18 18 Rate Blood Pressure 129/57 121/56 (mmHg) O2 Sat by Pulse 100 100 Oximetry 07/09/17 07/09/17 07/10/17 20:03 23:58 01:25 Temperature 97.9 F 98.8 F Pulse Rate 118 41 95 Respiratory 20 16 14 Rate Blood Pressure 130/73 126/65 (mmHg) O2 Sat by Pulse 97 95 97 Oximetry 07/10/17 03:52 Temperature 98.3 F Pulse Rate 87 Respiratory 16 Rate Blood Pressure 135/67 (mmHg) O2 Sat by Pulse 94 Oximetry Oxygen Devices in Use Now: Nasal Cannula Neurology Exam: General: Awake, Alert, Oriented x3 HEENT: Normocephalic/atraumtic, sclera anicteric, mucous membranes moist Neck: Supple Chest: Clear to auscultation bilaterally Cardiovascular: Irreg irreg Abdomen: Soft, nontender/nondistended Extremities: No clubbing, cyanosis, or edema. Skin is warm and dry Neurological Findings: Awake, Alert, Oriented x3 Speech: fluent without dysarthria, repetition intact Cranial Nerve: PEERL, EOM intact, VFF, no nystagmus, face symmetric bilaterally , facial sensation intact, hearing intact to finger rub bilaterally, palate elevates symmetrically, tongue midline Motor: 5/5 throughout, proximal and distal extremities x4 tone/bulk normal. No drift Sensation: intact to LT/PP bilaterally upper and lower extremities Deep Tendon Reflex: 1+ symmetric in the upper/lower extremities, Babinski upgoing bilaterally Finger to nose, rapid alternating movements intact. No tremor, no dysdiadochokinesia Result Diagrams: 07/09/17 05:09 07/08/17 06:10 Additional Lab and Data: Laboratory Results - last 24 hr 07/08/17 07/08/17 07/08/17 06:10 06:10 08:20 WBC 10.0 RBC 3.08 L Hgb 10.1 L Hct 30 L MCV 97 H MCH 33 H MCHC 34 RDW 13 Plt Count 315 MPV 6.4 L Neut % (Auto) 84.1 H Lymph % (Auto) 6.7 L [place] % (Auto) 8.6 H Eos % (Auto) 0.4 Baso % (Auto) 0.2 Absolute Neuts (auto) 8.4 H Absolute Lymphs (auto) 0.7 L Absolute Monos (auto) 0.9 H Absolute Eos (auto) 0 Absolute Basos (auto) 0 Absolute Nucleated RBC 0 Nucleated RBC % 0.1 Sodium 132 L Potassium 3.8 Chloride 98 L Carbon Dioxide 31 Anion Gap 3 BUN 8 Creatinine 0.56 L Est GFR ( Amer) 177.9 Est GFR (Non-Af Amer) 138.3 BUN/Creatinine Ratio 14.3 Glucose 100 Calcium 8.6 Urine Color Yellow Urine Appearance Clear Urine pH 5.0 Ur Specific [place] 1.019 Urine Protein Negative Urine Ketones Negative Urine Blood 2+ A Urine Nitrate Negative Urine Bilirubin Negative Urine Urobilinogen Negative Ur Leukocyte Esterase Negative Urine WBC (Auto) Trace(0-5/hpf) Urine RBC (Auto) Trace(0-2/hpf) Urine Bacteria Absent Urine Glucose Negative Microbiology and Other Data: Microbiology 07/06/17 17:50 Blood Venous Aerobic Blood Culture - Preliminary No Growth Day 1 07/06/17 17:50 Blood Venous Anaerobic Blood Culture - Preliminary No Growth Day 1 07/06/17 17:50 Blood Venous Aerobic Blood Culture - Preliminary No Growth Day 1 07/06/17 17:50 Blood Venous Anaerobic Blood Culture - Preliminary No Growth Day 1 07/06/17 08:00 Sputum Expectorated Gram Stain - Final 07/06/17 08:00 Respiratory - Expectorated Sputum Gram Stain - Final 07/06/17 21:40 Urine Legionella Urinary Antigen - Final Negative Legionella Antigen 07/06/17 21:40 Urine Streptococcus pneumoniae Ag Screen - Final Negative S. pneumo Antigen 07/06/17 20:30 Nasal Nasal Screen MRSA (PCR)(NAVA) - Final Mrsa Not Detected 07/06/17 21:50 Nasopharyngeal Influenza Types A,B Antigen (NAVA) - Final Specimen received for Influenza A/B Molecular testing Assessment/Plan Assessment: 86 with a history of prior lung infection/abscess years ago, presents with right lung abscess, bullae, embolic CVA, unclear source but history of A.Fib and history of carotid stenosis and concern for possible septic emboli 1. MOE no evidence of valvular vegetation or thrombus. Good EF. No PFO. 2. Overall, burden of embolic strokes is not high, I do think the risk of starting full strength anticoagulation at this point is low vs. the risk of further emboli. Source of stroke likely either cardiac with A.fib or carotid stenosis. It will take several days to reach full anticoagulation effect and I would not bridge with Heparin. Would not use NOAC in this case. Continue ASA for now. 3. Continue Statin, BP control, secondary stroke risk factor reduction. 3. On Abx for pulmonary abscess, blood cultures negative, no evidence of valvular vegetation. Abx primary team. Blood cultures negative X 3 days X 2. 4. Carotid stenosis: Possible source of emboli, will need o/p evaluation, consider CEA in near future. Full strength anticoagulation. 5. Please arrange follow up with me as outpatient in 1-2 months. I will sign off for now but remain available for any new issues or concerns. Thank you for the opportunity to participate in his care.
[2017-07-10] MEDS: Aspirin 81 mg CHEW TAB* 81 MG TAB.CHEW PO SCH (09:52)
[2017-07-10 14:29] LABS: ABS Basophils 0 10^3/ul (0-0.2); ABS Eosinophils 0 10^3/ul (0-0.6); ABS Lymphocytes 0.6 10^3/ul (1.0-4.8); ABS Monocytes 1.1 10^3/ul (0-0.8); ABS Neutrophils 6.7 10^3/ul (1.5-7.7); ABS Nucleated RBC 0 10^3/ul; Eosinophil % 0.4 % (0-6); Hematocrit 31 % (42-52); Hemoglobin 10.6 g/dl (14.0-18.0); Lymphocyte % 7.3 % (25-47); Mean Corpuscular HGB Conc 34 g/dl (31-36); Mean Corpuscular Hemoglobin 34 pg (27-31); Mean Corpuscular Volume 98 fL (80-94); Nucleated Red Blood Cells % 0; Platelet Count 343 10^3/ul (150-450); Red Blood Count 3.16 10^6/ul (4.0-5.4); Red Cell Distribution Width 13 % (10.5-15); White Blood Count 8.5 10^3/ul (3.5-10.8)
[2017-07-10 14:53] LABS: EGFR Non-African American 135.5 (>60)
[2017-07-10] MEDS ORDERED: Magnesium Sulfate 2 GM IV* 2 GM/50 ML BAG IVPB ONE (15:22)
[2017-07-10] MEDS ORDERED: Metoprolol Tartrate IV* 1 MG/ML 5 ML VIAL IV PRN (15:23)
--- NOTE | 2017-07-10 15:50 | PN ---
Subjective Date of Service: 07/10/17 Interval History: AFib with RVR, more frequent since last night. On 4L still. still productive cough. blood pressures preserved. Denies complaints Family History: Unchanged from Admission Social History: Unchanged from Admission Past Medical History: Unchanged from Admission Objective Active Medications: Acetaminophen (Tylenol Tab*) 650 mg PO Q4H PRN PRN Reason: FEVER/PAIN Albuterol (Ventolin 2.5 Mg/3 Ml Neb.Kaitlyn*) 2.5 mg INH Q2H PRN PRN Reason: SOB/WHEEZING Albuterol/Ipratropium (Duoneb (Albuterol 2.5 Mg/Ipratropium 0.5 Mg)) 1 neb INH Q2H PRN PRN Reason: SOB/WHEEZING Aspirin (Aspirin 81 Mg Chew Tab*) 81 mg PO DAILY [facility] Last Admin: 07/10/17 09:52 Dose: 81 mg Atorvastatin Calcium (Lipitor*) 40 mg PO 2100 [facility] Last Admin: 07/09/17 20:50 Dose: 40 mg Heparin Sodium (Porcine) (Heparin Vial(*)) 5,000 units SUBCUT Q8HR [facility] Last Admin: 07/10/17 13:02 Dose: 5,000 units Ceftriaxone Sodium 2,000 mg/ (Sodium Chloride) 20 mls @ 40 mls/hr IVPB Q24H [facility] Last Admin: 07/09/17 20:50 Dose: 40 mls/hr Metronidazole/Sodium Chloride (Flagyl 500 Mg Ivpb*) 500 mg in 100 mls @ 100 mls /hr IVPB 0200,1400 [facility] Last Admin: 07/10/17 13:03 Dose: 100 mls/hr Magnesium Sulfate (Magnesium Sulfate 2 Gm Iv*) 2 gm in 50 mls @ 50 mls/hr IVPB ONCE ONE Stop: 07/10/17 16:21 Metoprolol Tartrate (Lopressor Iv*) 5 mg IV Q2H PRN PRN Reason: TACHYCARDIA Metoprolol Tartrate (Lopressor Tab*) 25 mg PO BID [facility] Ondansetron HCl (Zofran Inj*) 4 mg IV Q6H PRN PRN Reason: NAUSEA Potassium Chloride (Klor-Con Liquid*) 20 meq PO ONCE ONE Stop: 07/10/17 16:01 Warfarin Sodium (Coumadin Tab(*)) 5 mg PO DAILY@1700 [facility] PRN Reason: Protocol Vital Signs - 8 hr 07/10/17 07/10/17 07/10/17 08:00 11:48 15:37 Temperature 98.4 F 98.0 F Pulse Rate 108 123 Respiratory 20 22 16 Rate Blood Pressure 136/78 139/76 (mmHg) O2 Sat by Pulse 100 100 Oximetry Oxygen Devices in Use Now: Nasal Cannula Appearance: NAD Respiratory: Symmetrical Chest Expansion and Respiratory Effort, - - rhonchi right upper and middle lobes, no wheezing or rhonchi. Cardiovascular: - - irregularly irregular. Abdominal: NL Sounds; No Tenderness; No Distention, No Hepatosplenomegaly Extremities: No Edema Skin: No Rash or Ulcers, No Nodules or Sclerosis Neurological: Alert and Oriented x 3, NL Sensation, NL Muscle Strength and Tone Nutrition: Taking PO's Result Diagrams: 07/10/17 14:09 07/10/17 14:09 Additional Lab and Data: Laboratory Results - last 24 hr 07/10/17 07/10/17 14:09 14:09 WBC 8.5 RBC 3.16 L Hgb 10.6 L Hct 31 L MCV 98 H MCH 34 H MCHC 34 RDW 13 Plt Count 343 MPV 6.0 L Neut % (Auto) 79.2 Lymph % (Auto) 7.3 L [place] % (Auto) 12.8 H Eos % (Auto) 0.4 Baso % (Auto) 0.3 Absolute Neuts (auto) 6.7 Absolute Lymphs (auto) 0.6 L Absolute Monos (auto) 1.1 H Absolute Eos (auto) 0 Absolute Basos (auto) 0 Absolute Nucleated RBC 0 Nucleated RBC % 0 Sodium 134 L Potassium 3.8 Chloride 95 L Carbon Dioxide 38 H Anion Gap 1 L BUN 7 Creatinine 0.57 L Est GFR ( Amer) 174.3 Est GFR (Non-Af Amer) 135.5 BUN/Creatinine Ratio 12.3 Glucose 134 H Calcium 8.8 Magnesium 1.8 L Microbiology and Other Data: Microbiology 07/10/17 09:56 Respiratory Acid Fast Bacilli Smear - Final 07/06/17 17:50 Blood Venous Aerobic Blood Culture - Preliminary No Growth Day 3 07/06/17 17:50 Blood Venous Anaerobic Blood Culture - Preliminary No Growth Day 3 07/06/17 17:50 Blood Venous Aerobic Blood Culture - Preliminary No Growth Day 3 07/06/17 17:50 Blood Venous Anaerobic Blood Culture - Preliminary No Growth Day 3 07/08/17 08:20 Urine Urine Culture - Final No Growth (<1,000 CFU/mL) 07/06/17 08:00 Sputum Expectorated Gram Stain - Final 07/06/17 08:00 Sputum Expectorated Sputum Culture - Final Normal [place] 07/06/17 08:00 Respiratory - Expectorated Sputum Gram Stain - Final 07/06/17 21:40 Urine Legionella Urinary Antigen - Final Negative Legionella Antigen 07/06/17 21:40 Urine Streptococcus pneumoniae Ag Screen - Final Negative S. pneumo Antigen 07/06/17 20:30 Nasal Nasal Screen MRSA (PCR)(NAVA) - Final Mrsa Not Detected 07/06/17 21:50 Nasopharyngeal Influenza Types A,B Antigen (NAVA) - Final Specimen received for Influenza A/B Molecular testing Assess/Plan/Problems-Billing Assessment: 86 with a history of prior lung infection/abscess years ago, presents with right lung abscess, bullae, embolic CVA, evidence here of A.Fib and atrial arrythmias and carotid stenosis. Negative Bcx and TTE/MOE. - Patient Problems (1) Sepsis Current Visit: Yes Status: Acute Comment: - Presentation compatible with sepsis with tachycardia and leukocytosis. - Source is right lung abscess. - Blood cultures are negative x 3 days. No evidence of vegatations on TTE or MOE. - ID concerned about recurrent strep intermedius vs nocardia vs actinomyces. Appreciate recs. Plan for 14 days augmentin on discharge with repeat CT scan and possible lung biospy (concern for malignancy as well). (2) Abscess of right lung with pneumonia Current Visit: Yes Status: Acute Code(s): J85.1 - ABSCESS OF LUNG WITH PNEUMONIA SNOMED Code(s): 637044093 Comment: - Patient was diagnosed in 2011, culture grew Strep intermedius and patient was treated with antibiotics. - Blood and sputum cultures NGTD. Urine antigens negative. MRSA negative. - Pulm recs appreciated. - ID concerned about recurrent strep intermedius vs nocardia vs actinomyces. - Continue Ceftriaxone, Zithromax, and Metronidazole for now. Augmentin on discharge. (3) Cerebrovascular accident, embolic Current Visit: Yes Status: Acute Code(s): I63.9 - CEREBRAL INFARCTION, UNSPECIFIED SNOMED Code(s): 446114904 Comment: - Patient describes prior episodes of left arm weakness lasting 10 minutes. day of admission, he experienced left arm/leg weakness, lasting hours. This is now resolved. - MRI brain shows embolic CVAs and CTA showed 70% SUMAYA stenosis and 50% LICA stenosis. - atrial arrythmia and Afib on tele and EKG. - coumadin to start today 07/10 per neuro. - Neurology input appreciated. f/u in 4 weeks as outpatient. - LDL 97. - Continue Aspirin and statin. (4) DVT prophylaxis Current Visit: Yes Status: Acute Code(s): QGO3210 - SNOMED Code(s): 730241745 Comment: - SQ heparin. (5) Full code status Current Visit: Yes Status: Acute Code(s): Z78.9 - OTHER SPECIFIED HEALTH STATUS SNOMED Code(s): 752081305 Comment: katrina RAHMAN filled out 07/08. He now wants CPR and trial intubation. Status and Disposition: Inpatient for management of sepsis, right lung abscess, and embolic CVAs.
[2017-07-10] MEDS ORDERED: Potassium Chloride LIQUID* 20 MEQ PACKET PO ONE (16:00)
[2017-07-10] MEDS: Warfarin TAB(*) 5 MG PO SCH (16:13)
[2017-07-10] MEDS: Metoprolol Tartrate TAB* 25 MG PO SCH ×2 (16:13→21:28)
[2017-07-10] MEDS ORDERED: SODIUM CHLORIDE 0.9% IVPB SCH (18:00)
[2017-07-10] MEDS ORDERED: CEFTRIAXONE IVPB SCH (18:00)
--- NOTE | 2017-07-10 20:11 | CONS ---
CONSULTATION REPORT: DATE OF CONSULT: 07/10/17 REQUESTING PHYSICIAN: Dr. Rodriguez. CONSULTING SERVICE: Infectious Disease. REASON FOR CONSULT: Pneumonia. IMPRESSION: 1. Right upper lobe bullous changes with dense right upper lobe infiltrate and cavitary lesion. He had a history of right middle lobe lung abscess 5 years ago. This could be a new community-acquired pneumonia versus postobstructive pneumonia in the setting of a malignancy. No history of TB exposure. He had an acid-fast smear that is negative. He is improving on ceftriaxone and Flagyl. 2. 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 RECOMMENDATION: Ceftriaxone 1 g a day, Flagyl 500 mg by mouth twice a day, stop azithromycin. For discharge, we can plan on 2 weeks of Augmentin 500 mg by mouth twice a day and a followup CT scan to look for underlying mass, which if still present would need biopsy. 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 He has also had been having a few days of worsening dyspnea and cough, which was productive of sputum, but no hemoptysis. His weight has been stable. He has had no fevers, chills, or sweats at home that he can think of. When he came to the hospital, his white count was 25,000, down to 8000 today on ceftriaxone, azithro, and Flagyl. He was seen by Dr. Huntley and had a chest CT that showed necrotizing right upper lobe infiltrate. He has been followed by Neurology and had a transesophageal echocardiogram, which showed no vegetation. He has had no fever here. His C-reactive protein was 200 on . He denies any chest pain, fevers, or chills now, still has some cough and requires supplemental oxygen. PAST MEDICAL HISTORY: 1. Right middle lobe lung abscess, 2012. 2. Cataract surgery. 3. Left shoulder surgery. MEDICATIONS: 1. Tylenol. 2. Albuterol. 3. Aspirin. 4. Lipitor. 5. Azithromycin 500 mg IV daily. 6. Ceftriaxone 2 g a day. 7. Flagyl 500 mg every 12 hours. 8. Zofran. 9. Warfarin. ALLERGIES: No known drug allergies. FAMILY HISTORY: No tuberculosis. SOCIAL HISTORY: Lives in [place] with his . He is retried. No sick contacts. He was never in the , did not live abroad, never worked in prisons or jails. REVIEW OF SYSTEMS: A 14-point review of systems was all negative except as noted above. PHYSICAL EXAM: Vital Signs: Temperature 37, heart rate 100, respiratory rate 20, blood pressure 136/78, oxygen saturation 100% on 4 L. In general, he is awake, not in distress. Neurologic: He is oriented x3. Follows all commands. HEENT: There is no conjunctival hemorrhage. Oropharynx is without lesions. Neck is supple without mass. Lymph Nodes: There is no inguinal, axillary, or epitrochlear lymphadenopathy. Heart is irregularly irregular and tachycardic without murmurs. Lungs: There are bilateral expiratory rhonchi. There are no rales. Abdomen: Soft, nontender, nondistended. There are bowel sounds present. Skin: There is no rash or splinter hemorrhages. Musculoskeletal: No spine tenderness to palpation or joint synovitis. LABORATORY DATA: Creatinine 0.5. Influenza PCR negative. Urinalysis showed blood. White blood cell count 8, hemoglobin 10, platelets 343, MCV 98. Please see impressions and recommendations as outlined above, which I have discussed with Dr. Rodriguez. Thanks for asking me to see Mr. Love in consultation. [id number]/[facility] #: [id number] CARL
[2017-07-10] MEDS ORDERED: Metoprolol Tartrate TAB* 25 MG PO SCH (21:00)
[2017-07-10] MEDS: Atorvastatin* 40 MG TAB PO SCH (21:28)
[2017-07-11] MEDS: metroNIDAZOLE IV 500 MG/100ML* 500 MG/100 ML BAG IVPB SCH ×2 (01:23→14:55)
[2017-07-11] MEDS: Heparin VIAL(*) 5000 UNITS/ML VIAL (FIVE THOUSAND) SUBCUT SCH ×3 (05:57→21:50)
[2017-07-11 07:22] LABS: ABS Basophils 0 10^3/ul (0-0.2); ABS Eosinophils 0 10^3/ul (0-0.6); ABS Lymphocytes 0.6 10^3/ul (1.0-4.8); ABS Monocytes 0.8 10^3/ul (0-0.8); ABS Neutrophils 5.4 10^3/ul (1.5-7.7); ABS Nucleated RBC 0 10^3/ul; Eosinophil % 0.6 % (0-6); Hematocrit 33 % (42-52); Hemoglobin 10.7 g/dl (14.0-18.0); Lymphocyte % 9.1 % (25-47); Mean Corpuscular HGB Conc 33 g/dl (31-36); Mean Corpuscular Hemoglobin 32 pg (27-31); Mean Corpuscular Volume 98 fL (80-94); Mean Platelet Volume 6.1 um3 (7.4-10.4); Nucleated Red Blood Cells % 0; Platelet Count 352 10^3/ul (150-450); Red Blood Count 3.32 10^6/ul (4.0-5.4); Red Cell Distribution Width 13 % (10.5-15); White Blood Count 6.9 10^3/ul (3.5-10.8)
[2017-07-11 07:33] LABS: INR 1.11 (0.77-1.02)
[2017-07-11 07:34] LABS: EGFR Non-African American 138.3 (>60)
[2017-07-11] MEDS: Metoprolol Tartrate TAB* 25 MG PO SCH ×2 (09:33→21:50)
[2017-07-11] MEDS: Aspirin 81 mg CHEW TAB* 81 MG TAB.CHEW PO SCH (09:33)
--- NOTE | 2017-07-11 13:18 | PN ---
Progress Note - Progress Note Date of Service: 07/10/17 - Pulm f/u note Note: Pt was seen and examined at bedside on 07/10/17, late entry in medical record Pt reported feeling better, breathing improved, less cough. Having A.fib with RVR episodes Active Medications Generic Name Dose Route Start Last Admin Trade Name Freq PRN Reason Stop Dose Admin Acetaminophen 650 mg 07/06/17 18:04 Tylenol Tab* PO Q4H PRN FEVER/PAIN Albuterol 2.5 mg 07/06/17 18:04 07/11/17 02:34 Ventolin 2.5 Mg/3 Ml Neb.Kaitlyn* INH 2.5 mg Q2H PRN Administration SOB/WHEEZING Albuterol/Ipratropium 1 neb 07/06/17 21:05 Duoneb (Albuterol 2.5 Mg/Ipratropium 0.5 Mg) INH Q2H PRN SOB/WHEEZING Aspirin 81 mg 07/07/17 09:00 07/11/17 09:33 Aspirin 81 Mg Chew Tab* PO 81 mg DAILY [facility] Administration Atorvastatin Calcium 40 mg 07/07/17 21:00 07/10/17 21:28 Lipitor* PO 40 mg 2100 [facility] Administration Heparin Sodium (Porcine) 5,000 units 07/06/17 22:00 07/11/17 05:57 Heparin Vial(*) SUBCUT 5,000 units Q8HR [facility] Administration Metronidazole/Sodium Chloride 500 mg in 100 mls @ 100 mls/hr 07/09/17 14:15 07/11/17 01:23 Flagyl 500 Mg Ivpb* IVPB 100 mls/hr 0200,1400 [facility] Administration Ceftriaxone Sodium 1,000 mg/ 50 mls @ 100 mls/hr 07/11/17 18:00 Sodium Chloride IVPB Q24H [facility] Metoprolol Tartrate 5 mg 07/10/17 15:23 Lopressor Iv* IV Q2H PRN TACHYCARDIA Metoprolol Tartrate 25 mg 07/10/17 16:00 07/11/17 09:33 Lopressor Tab* PO 25 mg BID [facility] Administration Ondansetron HCl 4 mg 07/06/17 18:04 Zofran Inj* IV Q6H PRN NAUSEA Warfarin Sodium 5 mg 07/10/17 17:00 07/10/17 16:13 Coumadin Tab(*) PO 5 mg DAILY@1700 [facility] Administration Protocol Vital Signs Temp Pulse Resp BP Pulse Ox 98.5 F 71 22 107/49 99 07/11/17 10:50 07/11/17 10:50 07/11/17 10:50 07/11/17 10:50 07/11/17 10:50 Gen: Pt in NAD, family at bedside HEENT: PERRLA, mucus membranes moist Respiratory: rhonchi present right upper and middle lobe Cardiovascular: irregularly irregular. Abdominal: BS+, NT, No Hepatosplenomegaly Extremities: No Edema Skin: No Rash or Ulcers Neurological: Alert and Oriented x 3, No focal defecits Result Diagrams: Laboratory Results - last 24 hr 07/10/17 07/10/17 14:09 14:09 WBC 8.5 RBC 3.16 L Hgb 10.6 L Hct 31 L MCV 98 H MCH 34 H MCHC 34 RDW 13 Plt Count 343 MPV 6.0 L Neut % (Auto) 79.2 Lymph % (Auto) 7.3 L [place] % (Auto) 12.8 H Eos % (Auto) 0.4 Baso % (Auto) 0.3 Absolute Neuts (auto) 6.7 Absolute Lymphs (auto) 0.6 L Absolute Monos (auto) 1.1 H Absolute Eos (auto) 0 Absolute Basos (auto) 0 Absolute Nucleated RBC 0 Nucleated RBC % 0 Sodium 134 L Potassium 3.8 Chloride 95 L Carbon Dioxide 38 H Anion Gap 1 L BUN 7 Creatinine 0.57 L Est GFR ( Amer) 174.3 Est GFR (Non-Af Amer) 135.5 BUN/Creatinine Ratio 12.3 Glucose 134 H Calcium 8.8 Magnesium 1.8 L I/R: 86 y o m with a history of lung abscess years ago in [facility], presents with right lung abscess, large bulla, embolic CVA, A.Fib Pt improving since admission, signs of sepsis improving/resolving Post obstructive PNA versus sec infection in bulla sec to bacterial vs Nocardia vs actinomyces cannot r/o malignancy and psot obstructive PNA process Blood cultures,sputum cultures are negative x 3 days. No evidence of vegatations on TTE or MOE. Continue Ceftriaxone, Zithromax, and Metronidazole for now. Recommend treating for presumed bacterial PNA with current broad spectrum abx and will need to [id number] day course of augmentin on discharge Will need repeat CT scan i2-3 weeks after completing abx and possible lung biospy if abnormality persists
--- NOTE | 2017-07-11 17:29 | PN ---
Subjective Date of Service: 07/11/17 Interval History: reportedly had trouble bringing up phlegm with cough and developed some respiratory distress during this episode. later weaned from 5L to 3L. afebrile. HR better controlled. Afib/atrial arrythmia continues Family History: Unchanged from Admission Social History: Unchanged from Admission Past Medical History: Unchanged from Admission Objective Active Medications: Acetaminophen (Tylenol Tab*) 650 mg PO Q4H PRN PRN Reason: FEVER/PAIN Albuterol (Ventolin 2.5 Mg/3 Ml Neb.Kaitlyn*) 2.5 mg INH Q2H PRN PRN Reason: SOB/WHEEZING Last Admin: 07/11/17 02:34 Dose: 2.5 mg Albuterol/Ipratropium (Duoneb (Albuterol 2.5 Mg/Ipratropium 0.5 Mg)) 1 neb INH Q2H PRN PRN Reason: SOB/WHEEZING Aspirin (Aspirin 81 Mg Chew Tab*) 81 mg PO DAILY [facility] Last Admin: 07/11/17 09:33 Dose: 81 mg Atorvastatin Calcium (Lipitor*) 40 mg PO 2100 [facility] Last Admin: 07/10/17 21:28 Dose: 40 mg Heparin Sodium (Porcine) (Heparin Vial(*)) 5,000 units SUBCUT Q8HR [facility] Last Admin: 07/11/17 14:58 Dose: 5,000 units Metronidazole/Sodium Chloride (Flagyl 500 Mg Ivpb*) 500 mg in 100 mls @ 100 mls /hr IVPB 0200,1400 [facility] Last Admin: 07/11/17 14:55 Dose: 100 mls/hr Ceftriaxone Sodium 1,000 mg/ (Sodium Chloride) 50 mls @ 100 mls/hr IVPB Q24H [facility] Metoprolol Tartrate (Lopressor Iv*) 5 mg IV Q2H PRN PRN Reason: TACHYCARDIA Metoprolol Tartrate (Lopressor Tab*) 25 mg PO BID [facility] Last Admin: 07/11/17 09:33 Dose: 25 mg Ondansetron HCl (Zofran Inj*) 4 mg IV Q6H PRN PRN Reason: NAUSEA Warfarin Sodium (Coumadin Tab(*)) 5 mg PO DAILY@1700 HELEN PRN Reason: Protocol Last Admin: 07/10/17 16:13 Dose: 5 mg Vital Signs - 8 hr 07/11/17 07/11/17 07/11/17 09:34 10:50 15:12 Temperature 98.5 F 98.6 F Pulse Rate 94 71 96 Respiratory 22 22 Rate Blood Pressure 107/49 117/52 (mmHg) O2 Sat by Pulse 99 97 Oximetry Oxygen Devices in Use Now: Nasal Cannula Appearance: NAD Eyes: No Scleral Icterus, PERRLA Ears/Nose/Mouth/Throat: NL Teeth, Lips, Gums, Mucous Membranes Moist Neck: NL Appearance and Movements; NL JVP, Trachea Midline Respiratory: - - rhonchi diffusely but worse left upper lung field. Cardiovascular: NL Sounds; No Murmurs; No JVD, RRR Abdominal: NL Sounds; No Tenderness; No Distention, No Hepatosplenomegaly Extremities: No Edema Skin: No Rash or Ulcers Neurological: Alert and Oriented x 3, NL Sensation, NL Muscle Strength and Tone Nutrition: Taking PO's Result Diagrams: 07/11/17 07:03 07/11/17 07:03 Additional Lab and Data: Laboratory Results - last 24 hr 07/11/17 07/11/17 07/11/17 07:03 07:03 07:03 WBC 6.9 RBC 3.32 L Hgb 10.7 L Hct 33 L MCV 98 H MCH 32 H MCHC 33 RDW 13 Plt Count 352 MPV 6.1 L Neut % (Auto) 78.4 Lymph % (Auto) 9.1 L [place] % (Auto) 11.6 H Eos % (Auto) 0.6 Baso % (Auto) 0.3 Absolute Neuts (auto) 5.4 Absolute Lymphs (auto) 0.6 L Absolute Monos (auto) 0.8 Absolute Eos (auto) 0 Absolute Basos (auto) 0 Absolute Nucleated RBC 0 Nucleated RBC % 0 INR (Anticoag Therapy) 1.11 H Sodium 133 L Potassium 4.7 Chloride 94 L Carbon Dioxide 39 H BUN 7 Creatinine 0.56 L Est GFR ( Amer) 177.9 Est GFR (Non-Af Amer) 138.3 BUN/Creatinine Ratio 12.5 Glucose 93 Calcium 8.7 Magnesium 2.2 Microbiology and Other Data: Microbiology 07/06/17 17:50 Blood Venous Aerobic Blood Culture - Final No Growth Day 5 07/06/17 17:50 Blood Venous Anaerobic Blood Culture - Final No Growth Day 5 07/06/17 17:50 Blood Venous Aerobic Blood Culture - Final No Growth Day 5 07/06/17 17:50 Blood Venous Anaerobic Blood Culture - Final No Growth Day 5 07/10/17 09:56 Respiratory Acid Fast Bacilli Smear - Final 07/08/17 08:20 Urine Urine Culture - Final No Growth (<1,000 CFU/mL) 07/06/17 08:00 Sputum Expectorated Gram Stain - Final 07/06/17 08:00 Sputum Expectorated Sputum Culture - Final Normal Lynn 07/06/17 08:00 Respiratory - Expectorated Sputum Gram Stain - Final 07/06/17 21:40 Urine Legionella Urinary Antigen - Final Negative Legionella Antigen 07/06/17 21:40 Urine Streptococcus pneumoniae Ag Screen - Final Negative S. pneumo Antigen 07/06/17 20:30 Nasal Nasal Screen MRSA (PCR)(NAVA) - Final Mrsa Not Detected 07/06/17 21:50 Nasopharyngeal Influenza Types A,B Antigen (NAVA) - Final Specimen received for Influenza A/B Molecular testing Assess/Plan/Problems-Billing Assessment: 86 with a history of prior lung infection/abscess years ago, presents with right lung abscess, bullae, embolic CVA, evidence here of A.Fib and atrial arrythmias and carotid stenosis. Started coumadin. Negative Bcx and TTE/MOE. - Patient Problems (1) Sepsis Current Visit: Yes Status: Acute Comment: - Presentation compatible with sepsis with tachycardia and leukocytosis. - Source is right lung abscess. - Blood cultures are negative x 5 days. No evidence of vegatations on TTE or MOE. - ID concerned about recurrent strep intermedius vs nocardia vs actinomyces. Appreciate recs. Plan for 14 days augmentin on discharge with repeat CT scan and possible lung biospy (concern for malignancy as well). (2) Abscess of right lung with pneumonia Current Visit: Yes Status: Acute Code(s): J85.1 - ABSCESS OF LUNG WITH PNEUMONIA SNOMED Code(s): 400292785 Comment: - Patient was diagnosed in 2011, culture grew Strep intermedius and patient was treated with antibiotics. - Blood and sputum cultures NGTD. Urine antigens negative. MRSA negative. - Pulm recs appreciated. - ID concerned about recurrent strep intermedius vs nocardia vs actinomyces. - Continue Ceftriaxone, Zithromax, and Metronidazole for now. Augmentin on discharge. (3) Cerebrovascular accident, embolic Current Visit: Yes Status: Acute Code(s): I63.9 - CEREBRAL INFARCTION, UNSPECIFIED SNOMED Code(s): 554918470 Comment: - Patient describes prior episodes of left arm weakness lasting 10 minutes. day of admission, he experienced left arm/leg weakness, lasting hours. This is now resolved. - MRI brain shows embolic CVAs and CTA showed 70% SUMAYA stenosis and 50% LICA stenosis. - atrial arrythmia and Afib on tele and EKG. - coumadin started 07/10 per neuro. INR daily - Neurology input appreciated. f/u in 4 weeks as outpatient. - LDL 97. - Continue Aspirin and statin. (4) DVT prophylaxis Current Visit: Yes Status: Acute Code(s): DJO9071 - SNOMED Code(s): 510821965 Comment: - SQ heparin. (5) Full code status Current Visit: Yes Status: Acute Code(s): Z78.9 - OTHER SPECIFIED HEALTH STATUS SNOMED Code(s): 842284176 Comment: new MOLST filled out 07/08. He now wants CPR and trial intubation. Status and Disposition: Inpatient for management of sepsis, right lung abscess, and embolic CVAs.
[2017-07-11] MEDS: Warfarin TAB(*) 5 MG PO SCH (17:55)
[2017-07-11] MEDS: cefTRIAXone VIAL(*) 1,000 MG in NS 0.9% 50 ML* 50 ML IVPB SCH (17:56)
[2017-07-11] MEDS: Atorvastatin* 40 MG TAB PO SCH (21:50)
[2017-07-12] MEDS: metroNIDAZOLE IV 500 MG/100ML* 500 MG/100 ML BAG IVPB SCH ×2 (02:24→14:26)
[2017-07-12 05:28] LABS: ABS Basophils 0 10^3/ul (0-0.2); ABS Eosinophils 0.1 10^3/ul (0-0.6); ABS Lymphocytes 0.6 10^3/ul (1.0-4.8); ABS Neutrophils 6.9 10^3/ul (1.5-7.7); ABS Nucleated RBC 0 10^3/ul; Eosinophil % 1.6 % (0-6); Hematocrit 31 % (42-52); Hemoglobin 10.3 g/dl (14.0-18.0); Lymphocyte % 7.1 % (25-47); Mean Corpuscular HGB Conc 34 g/dl (31-36); Mean Corpuscular Hemoglobin 33 pg (27-31); Mean Corpuscular Volume 98 fL (80-94); Mean Platelet Volume 5.8 um3 (7.4-10.4); Nucleated Red Blood Cells % 0; Platelet Count 352 10^3/ul (150-450); Red Blood Count 3.15 10^6/ul (4.0-5.4); Red Cell Distribution Width 13 % (10.5-15); White Blood Count 8.8 10^3/ul (3.5-10.8)
[2017-07-12 05:37] LABS: INR 1.23 (0.77-1.02)
[2017-07-12 05:42] LABS: EGFR Non-African American 154.1 (>60)
[2017-07-12] MEDS: Heparin VIAL(*) 5000 UNITS/ML VIAL (FIVE THOUSAND) SUBCUT SCH ×3 (06:15→22:02)
[2017-07-12] MEDS ORDERED: Magnesium Sulfate 1 GM IV* 1 GM/100 ML BAG IV ONE (08:43)
[2017-07-12] MEDS: Aspirin 81 mg CHEW TAB* 81 MG TAB.CHEW PO SCH (08:57)
[2017-07-12] MEDS: Metoprolol Tartrate TAB* 25 MG PO SCH ×2 (08:57→22:02)
[2017-07-12] MEDS: Magnesium Oxide TAB* 400 MG PO SCH (09:27)
--- NOTE | 2017-07-12 16:40 | PN ---
Subjective Date of Service: 07/12/17 Interval History: Sinus with frequent PACs .HR controlled. INR 1.2 Ambulated around unit and needed 8L after desat to 84% on 3L Family lives next door, there all the time. productive cough. afebrile. Family History: Unchanged from Admission Social History: Unchanged from Admission Past Medical History: Unchanged from Admission Objective Active Medications: Acetaminophen (Tylenol Tab*) 650 mg PO Q4H PRN PRN Reason: FEVER/PAIN Albuterol (Ventolin 2.5 Mg/3 Ml Neb.Kaitlyn*) 2.5 mg INH Q2H PRN PRN Reason: SOB/WHEEZING Last Admin: 07/11/17 02:34 Dose: 2.5 mg Albuterol/Ipratropium (Duoneb (Albuterol 2.5 Mg/Ipratropium 0.5 Mg)) 1 neb INH Q2H PRN PRN Reason: SOB/WHEEZING Aspirin (Aspirin 81 Mg Chew Tab*) 81 mg PO DAILY [facility] Last Admin: 07/12/17 08:57 Dose: 81 mg Atorvastatin Calcium (Lipitor*) 40 mg PO 2100 [facility] Last Admin: 07/11/17 21:50 Dose: 40 mg Heparin Sodium (Porcine) (Heparin Vial(*)) 5,000 units SUBCUT Q8HR [facility] Last Admin: 07/12/17 14:22 Dose: 5,000 units Metronidazole/Sodium Chloride (Flagyl 500 Mg Ivpb*) 500 mg in 100 mls @ 100 mls /hr IVPB 0200,1400 [facility] Last Admin: 07/12/17 14:26 Dose: 100 mls/hr Ceftriaxone Sodium 1,000 mg/ (Sodium Chloride) 50 mls @ 100 mls/hr IVPB Q24H [facility] Last Admin: 07/11/17 17:56 Dose: 100 mls/hr Magnesium Oxide (Magox 400 Tab*) 400 mg PO DAILY [facility] Last Admin: 07/12/17 09:27 Dose: 400 mg Metoprolol Tartrate (Lopressor Iv*) 5 mg IV Q2H PRN PRN Reason: TACHYCARDIA Metoprolol Tartrate (Lopressor Tab*) 25 mg PO BID [facility] Last Admin: 07/12/17 08:57 Dose: 25 mg Ondansetron HCl (Zofran Inj*) 4 mg IV Q6H PRN PRN Reason: NAUSEA Warfarin Sodium (Coumadin Tab(*)) 5 mg PO DAILY@1700 HELEN PRN Reason: Protocol Last Admin: 07/11/17 17:55 Dose: 5 mg Vital Signs - 8 hr 07/12/17 07/12/17 11:03 13:31 Temperature 97.7 F 97.8 F Pulse Rate 30 88 Respiratory 20 20 Rate Blood Pressure 100/62 117/60 (mmHg) O2 Sat by Pulse 91 97 Oximetry Oxygen Devices in Use Now: Nasal Cannula Appearance: NAD Eyes: No Scleral Icterus Ears/Nose/Mouth/Throat: NL Teeth, Lips, Gums, Mucous Membranes Moist Neck: NL Appearance and Movements; NL JVP Respiratory: Symmetrical Chest Expansion and Respiratory Effort, - - diffuse rhonchi, worse upper lung butt. Cardiovascular: NL Sounds; No Murmurs; No JVD, - - ectopy, no m/r/g Abdominal: NL Sounds; No Tenderness; No Distention, No Hepatosplenomegaly Extremities: No Edema, No Clubbing, Cyanosis Skin: No Rash or Ulcers, No Nodules or Sclerosis Neurological: Alert and Oriented x 3, NL Sensation, NL Muscle Strength and Tone Nutrition: Taking PO's Result Diagrams: 07/12/17 05:20 07/12/17 05:20 Additional Lab and Data: Laboratory Results - last 24 hr 07/12/17 07/12/17 07/12/17 05:20 05:20 05:20 WBC 8.8 RBC 3.15 L Hgb 10.3 L Hct 31 L MCV 98 H MCH 33 H MCHC 34 RDW 13 Plt Count 352 MPV 5.8 L Neut % (Auto) 79.1 Lymph % (Auto) 7.1 L White % (Auto) 11.8 H Eos % (Auto) 1.6 Baso % (Auto) 0.4 Absolute Neuts (auto) 6.9 Absolute Lymphs (auto) 0.6 L Absolute Monos (auto) 1.0 H Absolute Eos (auto) 0.1 Absolute Basos (auto) 0 Absolute Nucleated RBC 0 Nucleated RBC % 0 INR (Anticoag Therapy) 1.23 H Sodium 131 L Potassium 4.2 Chloride 91 L Carbon Dioxide 42 H* Anion Gap Not Reportable BUN 6 Creatinine 0.51 L Est GFR ( Amer) 198.2 Est GFR (Non-Af Amer) 154.1 BUN/Creatinine Ratio 11.8 Glucose 113 H Calcium 8.2 L Magnesium 1.9 Microbiology and Other Data: Microbiology 07/06/17 17:50 Blood Venous Aerobic Blood Culture - Final No Growth Day 5 07/06/17 17:50 Blood Venous Anaerobic Blood Culture - Final No Growth Day 5 07/06/17 17:50 Blood Venous Aerobic Blood Culture - Final No Growth Day 5 07/06/17 17:50 Blood Venous Anaerobic Blood Culture - Final No Growth Day 5 07/10/17 09:56 Respiratory Acid Fast Bacilli Smear - Final 07/08/17 08:20 Urine Urine Culture - Final No Growth (<1,000 CFU/mL) 07/06/17 08:00 Sputum Expectorated Gram Stain - Final 07/06/17 08:00 Sputum Expectorated Sputum Culture - Final Normal Lynn 07/06/17 08:00 Respiratory - Expectorated Sputum Gram Stain - Final 07/06/17 21:40 Urine Legionella Urinary Antigen - Final Negative Legionella Antigen 07/06/17 21:40 Urine Streptococcus pneumoniae Ag Screen - Final Negative S. pneumo Antigen 07/06/17 20:30 Nasal Nasal Screen MRSA (PCR)(NAVA) - Final Mrsa Not Detected 07/06/17 21:50 Nasopharyngeal Influenza Types A,B Antigen (NAVA) - Final Specimen received for Influenza A/B Molecular testing Assess/Plan/Problems-Billing Assessment: 86 with a history of prior lung infection/abscess years ago, presents with right lung abscess, bullae, embolic CVA, evidence here of A.Fib and atrial arrythmias and carotid stenosis. Started coumadin. Negative Bcx and TTE/MOE. - Patient Problems (1) Sepsis Current Visit: Yes Status: Acute Comment: - Presentation compatible with sepsis with tachycardia and leukocytosis. - Source is right lung abscess. - Blood cultures are negative x 5 days. No evidence of vegatations on TTE or MOE. - ID concerned about recurrent strep intermedius vs nocardia vs actinomyces. Appreciate recs. Plan for 14 days augmentin on discharge with repeat CT scan and possible lung biospy (concern for malignancy as well). (2) Abscess of right lung with pneumonia Current Visit: Yes Status: Acute Code(s): J85.1 - ABSCESS OF LUNG WITH PNEUMONIA SNOMED Code(s): 807855038 Comment: - Patient was diagnosed in 2011, culture grew Strep intermedius and patient was treated with antibiotics. - Blood and sputum cultures NGTD. Urine antigens negative. MRSA negative. - Pulm recs appreciated. - ID concerned about recurrent strep intermedius vs nocardia vs actinomyces. - Continue Ceftriaxone, Zithromax, and Metronidazole for now. Augmentin on discharge. (3) Cerebrovascular accident, embolic Current Visit: Yes Status: Acute Code(s): I63.9 - CEREBRAL INFARCTION, UNSPECIFIED SNOMED Code(s): 081495362 Comment: - Patient describes prior episodes of left arm weakness lasting 10 minutes. day of admission, he experienced left arm/leg weakness, lasting hours. This is now resolved. - MRI brain shows embolic CVAs and CTA showed 70% SUMAYA stenosis and 50% LICA stenosis. - atrial arrythmia and Afib on tele and EKG. - coumadin started 07/10 per neuro. INR daily - Neurology input appreciated. f/u in 4 weeks as outpatient. - LDL 97. - Continue Aspirin and statin. (4) DVT prophylaxis Current Visit: Yes Status: Acute Code(s): [id number] - SNOMED Code(s): 688004662 Comment: - SQ heparin. (5) Full code status Current Visit: Yes Status: Acute Code(s): Z78.9 - OTHER SPECIFIED HEALTH STATUS SNOMED Code(s): 974002923 Comment: katrina RAHMAN filled out 07/08. He now wants CPR and trial intubation. Status and Disposition: Inpatient for management of sepsis, right lung abscess, and embolic CVAs. will need home O2
--- NOTE | 2017-07-12 17:00 | PN ---
Progress Note - Progress Note Date of Service: 07/12/17 - Pulm f/u note Note: Pt seen and examined at bedside. Pt reports feeling better. Is looking forward to go home Active Medications Generic Name Dose Route Start Last Admin Trade Name Freq PRN Reason Stop Dose Admin Acetaminophen 650 mg 07/06/17 18:04 Tylenol Tab* PO Q4H PRN FEVER/PAIN Albuterol 2.5 mg 07/06/17 18:04 07/11/17 02:34 Ventolin 2.5 Mg/3 Ml Neb.Kaitlyn* INH 2.5 mg Q2H PRN Administration SOB/WHEEZING Albuterol/Ipratropium 1 neb 07/06/17 21:05 Duoneb (Albuterol 2.5 Mg/Ipratropium 0.5 Mg) INH Q2H PRN SOB/WHEEZING Aspirin 81 mg 07/07/17 09:00 07/12/17 08:57 Aspirin 81 Mg Chew Tab* PO 81 mg DAILY HELEN Administration Atorvastatin Calcium 40 mg 07/07/17 21:00 07/11/17 21:50 Lipitor* PO 40 mg 2100 HELEN Administration Heparin Sodium (Porcine) 5,000 units 07/06/17 22:00 07/12/17 14:22 Heparin Vial(*) SUBCUT 5,000 units Q8HR HELEN Administration Metronidazole/Sodium Chloride 500 mg in 100 mls @ 100 mls/hr 07/09/17 14:15 07/12/17 14:26 Flagyl 500 Mg Ivpb* IVPB 100 mls/hr 0200,1400 HELEN Administration Ceftriaxone Sodium 1,000 mg/ 50 mls @ 100 mls/hr 07/11/17 18:00 07/11/17 17: 56 Sodium Chloride IVPB 100 mls/hr Q24H HELEN Administration Magnesium Oxide 400 mg 07/12/17 09:00 07/12/17 09:27 Magox 400 Tab* PO 400 mg DAILY [facility]EN Administration Metoprolol Tartrate 5 mg 07/10/17 15:23 Lopressor Iv* IV Q2H PRN TACHYCARDIA Metoprolol Tartrate 25 mg 07/10/17 16:00 07/12/17 08:57 Lopressor Tab* PO 25 mg BID HELEN Administration Ondansetron HCl 4 mg 07/06/17 18:04 Zofran Inj* IV Q6H PRN NAUSEA Warfarin Sodium 5 mg 07/10/17 17:00 07/11/17 17:55 Coumadin Tab(*) PO 5 mg DAILY@1700 HELEN Administration Protocol Vital Signs Temp Pulse Resp BP Pulse Ox 97.8 F 88 20 117/60 97 07/12/17 13:31 07/12/17 13:31 07/12/17 13:31 07/12/17 13:31 07/12/17 13:31 Gen: Pt in NAD, lying in bed HEENT: PERRLA, mucus membranes moist Respiratory: diminished air entry, improved rhonchi in right upper and middle lobe Cardiovascular: irregularly irregular. Abdominal: BS+, NT, No hepatosplenomegaly Extremities: No Edema Skin: No Rash or Ulcers Neurological: Alert and Oriented x 3, No focal deficits Laboratory Results - last 24 hr 07/12/17 07/12/17 07/12/17 05:20 05:20 05:20 WBC 8.8 RBC 3.15 L Hgb 10.3 L Hct 31 L MCV 98 H MCH 33 H MCHC 34 RDW 13 Plt Count 352 MPV 5.8 L Neut % (Auto) 79.1 Lymph % (Auto) 7.1 L [place] % (Auto) 11.8 H Eos % (Auto) 1.6 Baso % (Auto) 0.4 Absolute Neuts (auto) 6.9 Absolute Lymphs (auto) 0.6 L Absolute Monos (auto) 1.0 H Absolute Eos (auto) 0.1 Absolute Basos (auto) 0 Absolute Nucleated RBC 0 Nucleated RBC % 0 INR (Anticoag Therapy) 1.23 H Sodium 131 L Potassium 4.2 Chloride 91 L Carbon Dioxide 42 H* Anion Gap Not Reportable BUN 6 Creatinine 0.51 L Est GFR ( Amer) 198.2 Est GFR (Non-Af Amer) 154.1 BUN/Creatinine Ratio 11.8 Glucose 113 H Calcium 8.2 L Magnesium 1.9 I/R: 86 y o m with a history of lung abscess years ago in [facility], presents with right lung abscess, large bulla, embolic CVA, A.Fib Pt improving since admission Has been having brown/yellow phleghm using flutter device and incentive spirometer Post obstructive PNA versus sec infection in bulla sec to bacterial vs Nocardia vs actinomyces cannot r/o malignancy and post obstructive PNA process Blood cultures,sputum cultures are negative. No evidence of vegatations on TTE or MOE. Continue Ceftriaxone, Zithromax, and Metronidazole for now. Recommend treating for presumed bacterial PNA with current broad spectrum abx and will need to [id number] day course of augmentin on discharge Will need repeat CT scan in 2-3 weeks after completing abx and possible lung biospy if abnormality persists D/w Dr Rodriguez
[2017-07-12] MEDS: Warfarin TAB(*) 5 MG PO SCH (17:26)
[2017-07-12] MEDS: cefTRIAXone VIAL(*) 1,000 MG in NS 0.9% 50 ML* 50 ML IVPB SCH (18:16)
[2017-07-12] MEDS: Atorvastatin* 40 MG TAB PO SCH (22:02)
[2017-07-13] MEDS: metroNIDAZOLE IV 500 MG/100ML* 500 MG/100 ML BAG IVPB SCH ×2 (03:12→14:25)
[2017-07-13] MEDS: Heparin VIAL(*) 5000 UNITS/ML VIAL (FIVE THOUSAND) SUBCUT SCH ×2 (05:55→14:26)
[2017-07-13 05:56] LABS: ABS Basophils 0 10^3/ul (0-0.2); ABS Eosinophils 0.2 10^3/ul (0-0.6); ABS Lymphocytes 0.6 10^3/ul (1.0-4.8); ABS Monocytes 0.8 10^3/ul (0-0.8); ABS Neutrophils 5.2 10^3/ul (1.5-7.7); ABS Nucleated RBC 0 10^3/ul; Eosinophil % 2.4 % (0-6); Hematocrit 31 % (42-52); Hemoglobin 10.5 g/dl (14.0-18.0); Lymphocyte % 8.7 % (25-47); Mean Corpuscular HGB Conc 34 g/dl (31-36); Mean Corpuscular Hemoglobin 33 pg (27-31); Mean Corpuscular Volume 97 fL (80-94); Mean Platelet Volume 6.1 um3 (7.4-10.4); Nucleated Red Blood Cells % 0; Platelet Count 377 10^3/ul (150-450); Red Cell Distribution Width 13 % (10.5-15); White Blood Count 6.9 10^3/ul (3.5-10.8)
[2017-07-13 06:00] LABS: INR 1.66 (0.77-1.02)
[2017-07-13 06:12] LABS: EGFR Non-African American 150.7 (>60)
[2017-07-13] MEDS ORDERED: acetaZOLAMIDE TAB* 250 MG PO ONE (08:01)
[2017-07-13] MEDS: Aspirin 81 mg CHEW TAB* 81 MG TAB.CHEW PO SCH (09:06)
[2017-07-13] MEDS: Metoprolol Tartrate TAB* 25 MG PO SCH (09:06)
[2017-07-13] MEDS: Magnesium Oxide TAB* 400 MG PO SCH (09:06)
[2017-07-13 14:12] VITALS: BP 127/61
--- NOTE | 2017-07-14 00:07 | DS ---
DISCHARGE SUMMARY: DATE OF ADMISSION: 07/06/17 DATE OF DISCHARGE: 07/13/17 ADMITTING PROVIDER: Juancarlos Bernal NP ATTENDING PHYSICIAN: Vladimir Rodriguez MD CONSULTING NEUROLOGIST: Dr. Myrick and Dr. Eligio Medina. CONSULTING BUTCHER HEAD: Dr. Brunilda Huntley. CONSULTING INFECTIOUS DISEASE: Dr. Micah Park. CHIEF COMPLAINT: Left-sided weakness, cough, shortness of breath. PRINCIPAL DIAGNOSES: 1. Sepsis secondary to pneumonia. 2. Cerebrovascular accident. 3. Atrial fibrillation. 4. Carotid stenosis. 5. Hypoxic respiratory failure. HISTORY OF PRESENT ILLNESS AND HOSPITAL COURSE: Rafael Love is an 86-year- old male, former smoker of 30 pack years and lung abscess in [address]-guided drainage and biopsy and ultimately grew Streptococcus intermedius. At noon on day of admission, he noticed he could not move his left arm or left leg. There was no facial droop, visual disturbances. He has been complaining of cough for the last 8 weeks and had 4 to 5-pound weight loss, shortness of breath which has been progressively getting worse. On presentation to the emergency room, a code fraire was called. CTA of his head showed atrophy with chronic microvascular ischemic changes, no acute findings. He ultimately had a brain MRI, which demonstrated multiple small areas of increased signal in cortical and subcortical locations of both cerebral hemispheres consistent with acute ischemia with concern for possible embolic phenomenon. He had a CT of his chest, which demonstrated a right upper lobe necrotizing infiltrate and large cavitary lesion at the right lung apex and additional smaller bilateral lower lobe infiltrates and mildly enlarged mediastinal lymph nodes. Initial chest x-ray demonstrated consolidative changes in the right upper lobe with underlying chronic pleural and parenchymal changes in the right hemothorax. He was started on ceftriaxone and azithromycin and eventually Flagyl on hospital day #2. No growth on blood cultures x5 days. Negative Strep pneumoniae, Legionella antigen, MRSA nares were negative, influenza swabs were negative, one acid fast bacilli was negative. Sputum culture showed normal christine. The patient had a transthoracic echocardiogram given the concern for embolic phenomenon and possible septic emboli, but did not show any evidence of vegetation or clots. Ejection fraction was 55% to 60%. That same day, he had a transesophageal echocardiogram, which again showed no evidence of vegetation or clot or late bubble seen in the left atrium, which could represent pulmonary AV shunting. The patient was followed by Dr. Myrick and Dr. Eligio Medina of Neurology, eventually started on Coumadin on 07/10/17 and his INR has been increasing slowly up to 1.66 with goal range 2 to 3. He is recommended to have 14 additional days of Augmentin [address] with CT of the chest 2 to 3 weeks after cessation of antibiotics, but there is concern there may be some sort of obstructive mass, potentially malignancy versus return of the Strep intermedius. The patient has been afebrile, but still continued hypoxic respiratory failure requiring 2 L at rest and 3 L with ambulation, that is setup with [facility]. He was started on beta-blockers, metoprolol 25 p.o. b.i.d. for rate control of his intermittent atrial fibrillation/atrial arrhythmia with frequent PACs. He was also started on Lipitor and magnesium supplementation. His initial CRP was 203. DISCHARGE MEDICATIONS: Include: 1. Aspirin 81 mg daily, new. 2. Lipitor 40 mg daily, new. 3. Magnesium oxide 400 mg p.o. daily (new). 4. Metoprolol tartrate 25 mg p.o. b.i.d. (new). 5. Amoxicillin clavulanate 500 mg p.o. b.i.d. (new) for 14 days. 6. Warfarin 5 mg p.o. daily (new). DIET: Heart-healthy. ACTIVITY LEVEL: No restrictions. PHYSICAL EXAMINATION: The patient without any residual neurological deficit making score of 0. He does have coarse rhonchi diffusely in his lungs, worse at the right upper lung field. FOLLOWUP: Please follow up with Dr. Caitlyn Tyler within 5 days of discharge, Dr. Brunilda Huntley within 2 to 3 weeks of discharge, Dr. Eligio Medina within 2 to 4 weeks of discharge, Dr. Micah Park within 2 to 4 weeks of discharge. Consideration also for Cardiology as an outpatient given new diagnosis of atrial fibrillation/atrial arrhythmia. TIME SPENT: Time spent on this discharge was 45 minutes. [id number]/[facility] #: [id number] [facility]ITAL[facility]
== END 2017-07-13 16:23 | disposition home or self-care (01) | DRG 871 ==
LOC: ED 16:14 → ICU 17:55 → MEDTELE 07-07 10:10
PROVIDERS: ADMIT Internal Medicine; ATTEND Internal Medicine
PROC: B24BZZ4 Ultrasonography of Heart with Aorta, Transesophageal (ICD-10-PCS; principal; 2017-07-09 08:45)
DX: A41.9 Sepsis, unspecified organism (principal); I63.9 Cerebral infarction, unspecified; J85.1 Abscess of lung with pneumonia; J96.91 Respiratory failure, unspecified with hypoxia; E87.1 Hypo-osmolality and hyponatremia; G81.94 Hemiplegia, unspecified affecting left nondominant side; J94.2 Hemothorax; J45.909 Unspecified asthma, uncomplicated; K21.9 Gastro-esophageal reflux disease without esophagitis; R29.702 NIHSS score 2; Z66 Do not resuscitate; N40.0 Benign prostatic hyperplasia without lower urinary tract symptoms; J43.9 Emphysema, unspecified; R63.4 Abnormal weight loss; I48.91 Unspecified atrial fibrillation; I65.23 Occlusion and stenosis of bilateral carotid arteries; R40.0 Somnolence; Z79.82 Long term (current) use of aspirin; Z68.1 Body mass index [BMI] 19.9 or less, adult; Z98.49 Cataract extraction status, unspecified eye; Z82.49 Family history of ischemic heart disease and other diseases of the circulatory system; Z87.891 Personal history of nicotine dependence; Z72.89 Other problems related to lifestyle; Z82.0 Family history of epilepsy and other diseases of the nervous system; Z79.01 Long term (current) use of anticoagulants
CPT/HCPCS: 36415; 70450; 70496; 70498; 70553; 71045; 71260; 80048; 80053; 80061; 81003; 81015; 83036; 83605; 83735; 84484; 85025; 85610; 85652; 85730; 86140; 86850; 86900; 86901; 87040; 87070; 87086; 87116; 87205; 87206; 87502; 87641; 87899; 93005; 93306; 93312; 93325; 94640; 94760; 99156; 99157; 99284; A9270-GY; A9579; C8929; J0456; J0696; J1644; J2250; J2310; J3010; J3475; J3490; Q9967

== ENCOUNTER 2017-07-24 00:43 | Observation (INO) | payer MEDICARE ==
[2017-07-24] MEDS ORDERED: Phytonadione INJ (Adult)* 10 MG in NS 0.9% 50 ML* 50 ML IV ONE (01:18)
[2017-07-24] MEDS ORDERED: Metoprolol Tartrate IV* 1 MG/ML 5 ML VIAL IV ONE (01:20)
[2017-07-24] MEDS ORDERED: NS 0.9% 1000 ML* 1,000 ML IV ONE (01:20)
[2017-07-24 01:37] LABS: ABS Basophils 0.1 10^3/ul (0-0.2); ABS Eosinophils 0.1 10^3/ul (0-0.6); ABS Lymphocytes 0.8 10^3/ul (1.0-4.8); ABS Monocytes 1.2 10^3/ul (0-0.8); ABS Neutrophils 13.2 10^3/ul (1.5-7.7); ABS Nucleated RBC 0 10^3/ul; Eosinophil % 0.5 % (0-6); Hematocrit 31 % (42-52); Hemoglobin 10.4 g/dl (14.0-18.0); Lymphocyte % 5.3 % (25-47); Mean Corpuscular HGB Conc 33 g/dl (31-36); Mean Corpuscular Hemoglobin 32 pg (27-31); Mean Corpuscular Volume 97 fL (80-94); Nucleated Red Blood Cells % 0.1; Platelet Count 598 10^3/ul (150-450); Red Blood Count 3.21 10^6/ul (4.0-5.4); Red Cell Distribution Width 13 % (10.5-15); White Blood Count 15.4 10^3/ul (3.5-10.8)
[2017-07-24 01:53] LABS: EGFR Non-African American 110.6 (>60)
[2017-07-24 01:59] LABS: INR 7.34 (0.77-1.02)
--- NOTE | 2017-07-24 03:13 | ED ---
Michael Ferrara Rebecca, scribed for Cody Hayes MD on 07/24/17 at 0109 . Respiratory - HPI Summary HPI Summary: Pt is an 86 y/o M who presents to ED c/o hemoptysis. Sx began a few days ago, worsening this morning and increasing in quantity of blood. Has not been producing clots. Denies any pain and SOB. Pt is on Coumadin, 5 mg daily with his blood level checked last Sunday (6 days ago). Recently had PNA for which he was admitted to [facility] ED for a week and experienced significant cough. - History of Current Complaint Chief Complaint: EDUpperRespComplaint Stated Complaint: COUGHING UP BLOOD Time Seen by Provider: 07/24/17 01:02 Hx Obtained From: Patient Onset/Duration: Lasting Days, Still Present Current Severity: None Pain Intensity: 0 Character: Cough (Productive) Sputum Color: Red (Blood) Aggravating Factor(s): Nothing Alleviating Factor(s): Nothing - Allergy/Home Medications Allergies/Adverse Reactions: Allergies Allergy/AdvReac Type Severity Reaction Status Date / Time No Known Allergies Allergy Verified 07/06/17 16:26 PMH/Surg Hx/FS Hx/Imm Hx Endocrine/Hematology History: Denies: Hx Diabetes, Hx Systemic Lupus Erythematosus Cardiovascular History: Denies: Hx Congestive Heart Failure, Hx Hypertension, Hx Pacemaker/ICD Comment Only: Other Cardiovascular Problems/Disorders - pac's Respiratory History: Reports: Hx Asthma, Other Respiratory Problems/Disorders - sob with exertion GI History: Comment Only: Other GI Disorders - hx reflux History: Denies: Hx Dialysis, Hx Renal Disease Musculoskeletal History: Reports: Other Musculoskeletal History - L rotator cuff tear and repair Denies: Hx Rheumatoid Arthritis Sensory History: Reports: Hx Contacts or Glasses Denies: Hx Hearing Aid Opthamlomology History: Reports: Hx Contacts or Glasses Neurological History: Denies: Hx CVA, Hx Transient Ischemic Attacks (TIA) Psychiatric History: Denies: Hx Panic Disorder - Cancer History Hx Chemotherapy: No - Surgical History Surgery Procedure, Year, and Place: rotator cuff repair left. abscess removed from right lung Hx Anesthesia Reactions: No Infectious Disease History: No Infectious Disease History: Denies: Hx Clostridium Difficile, Hx Hepatitis, Hx Human Immunodeficiency Virus (HIV), Hx of Known/Suspected MRSA, Hx Shingles, Hx Tuberculosis, History Other Infectious Disease, Traveled Outside the [place] in Last 30 Days - Family History Known Family History: Positive: Cardiac Disease - Social History Alcohol Use: None Substance Use Type: Reports: None Smoking Status (MU): Former Smoker Review of Systems Negative: Fever Positive: Cough - Hemoptysis. Negative: Shortness Of Breath All Other Systems Reviewed And Are Negative: Yes Physical Exam - Summary Physical Exam Summary: Appearance: Well appearing, no pain distress Skin: warm, dry, reflects adequate perfusion Head/face: dried blood on face Eyes: EOMI, CATHI ENT: normal, no blood in the oral pharynx Neck: supple, non-tender Respiratory: harsh cough, bibasilar crackles, diminished elsewhere Cardiovascular: irregularly irregular, pulses symmetrical Abdomen: non-tender, soft Bowel Sounds: present Musculoskeletal: strength/ROM intact, 1+ edema on his right side, 2+ pitting edema on his left side Neuro: normal, sensory motor intact, A&Ox3 Triage Information Reviewed: Yes Vital Signs On Initial Exam: Initial Vitals Temp Pulse Resp BP Pulse Ox 96.7 F 103 22 154/91 96 07/24/17 00:44 07/24/17 00:44 07/24/17 00:44 07/24/17 00:44 07/24/17 00:44 Vital Signs Reviewed: Yes Diagnostics - Vital Signs Vital Signs Temp Pulse Resp BP Pulse Ox 07/24/17 00:44 96.7 F 103 22 154/91 96 - Laboratory Lab Results: Lab Results 07/24/17 07/24/17 07/24/17 Range/Units 01:27 01:27 01:27 WBC (3.5-10.8) 10^3/ul RBC (4.0-5.4) 10^6/ul Hgb (14.0-18.0) g/dl Hct (42-52) % MCV (80-94) fL MCH (27-31) pg MCHC (31-36) g/dl RDW (10.5-15) % Plt Count (150-450) 10^3/ul MPV (7.4-10.4) um3 Neut % (Auto) (38-83) % Lymph % (Auto) (25-47) % [place] % (Auto) (0-7) % Eos % (Auto) (0-6) % Baso % (Auto) (0-2) % Absolute Neuts (auto) (1.5-7.7) 10^3/ul Absolute Lymphs (auto) (1.0-4.8) 10^3/ul Absolute Monos (auto) (0-0.8) 10^3/ul Absolute Eos (auto) (0-0.6) 10^3/ul Absolute Basos (auto) (0-0.2) 10^3/ul Absolute Nucleated RBC 10^3/ul Nucleated RBC % INR (Anticoag Therapy) 7.34 H* (0.77-1.02) Sodium (139-145) mmol/L Potassium Chloride (101-111) mmol/L Carbon Dioxide (22-32) mmol/L Anion Gap (2-11) mmol/L BUN (6-24) mg/dL Creatinine (0.67-1.17) mg/dL Est GFR ( Amer) (>60) Est GFR (Non-Af Amer) (>60) BUN/Creatinine Ratio (8-20) Glucose (70-100) mg/dL Lactic Acid (0.5-2.0) mmol/L Calcium (8.6-10.3) mg/dL Total Bilirubin (0.2-1.0) mg/dL AST ALT (7-52) U/L Alkaline Phosphatase (34-104) U/L Troponin I (<0.04) ng/mL B-Natriuretic Peptide 602 H ( - 100) pg/mL Total Protein (6.4-8.9) g/dL Albumin (3.2-5.2) g/dL Globulin (2-4) g/dL Albumin/Globulin Ratio (1-3) Blood Type A Positive Antibody Screen Negative 07/24/17 07/24/17 07/24/17 Range/Units 01:27 01:27 01:27 WBC 15.4 H (3.5-10.8) 10^3/ul RBC 3.21 L (4.0-5.4) 10^6/ul Hgb 10.4 L (14.0-18.0) g/dl Hct 31 L (42-52) % MCV 97 H (80-94) fL MCH 32 H (27-31) pg MCHC 33 (31-36) g/dl RDW 13 (10.5-15) % Plt Count 598 H D (150-450) 10^3/ul MPV 6.0 L (7.4-10.4) um3 Neut % (Auto) 85.8 H (38-83) % Lymph % (Auto) 5.3 L (25-47) % [place] % (Auto) 7.9 H (0-7) % Eos % (Auto) 0.5 (0-6) % Baso % (Auto) 0.5 (0-2) % Absolute Neuts (auto) 13.2 H (1.5-7.7) 10^3/ul Absolute Lymphs (auto) 0.8 L (1.0-4.8) 10^3/ul Absolute Monos (auto) 1.2 H (0-0.8) 10^3/ul Absolute Eos (auto) 0.1 (0-0.6) 10^3/ul Absolute Basos (auto) 0.1 (0-0.2) 10^3/ul Absolute Nucleated RBC 0 10^3/ul Nucleated RBC % 0.1 INR (Anticoag Therapy) (0.77-1.02) Sodium 128 L (139-145) mmol/L Potassium TNP Chloride 93 L (101-111) mmol/L Carbon Dioxide 29 (22-32) mmol/L Anion Gap 6 (2-11) mmol/L BUN 7 (6-24) mg/dL Creatinine 0.68 (0.67-1.17) mg/dL Est GFR ( Amer) 142.2 (>60) Est GFR (Non-Af Amer) 110.6 (>60) BUN/Creatinine Ratio 10.3 (8-20) Glucose 163 H (70-100) mg/dL Lactic Acid 2.3 H* (0.5-2.0) mmol/L Calcium 8.5 L (8.6-10.3) mg/dL Total Bilirubin 0.30 (0.2-1.0) mg/dL AST TNP ALT 7 (7-52) U/L Alkaline Phosphatase 122 H (34-104) U/L Troponin I 0.01 (<0.04) ng/mL B-Natriuretic Peptide ( - 100) pg/mL Total Protein 8.1 (6.4-8.9) g/dL Albumin 3.1 L (3.2-5.2) g/dL Globulin 5.0 H (2-4) g/dL Albumin/Globulin Ratio 0.6 L (1-3) Blood Type Antibody Screen Result Diagrams: 07/24/17 01:27 07/24/17 01:27 Lab Statement: Any lab studies that have been ordered have been reviewed, and results considered in the medical decision making process. - Radiology CXR Xray Interpretation: Positive (See Comments) - Persistent consolidation right upper lobe with right sided pleural effusion, increased involvement of the right middle lobe, severe COPD Radiology Interpretation Completed By: ED Physician - EKG 0128 Cardiac Rate: Tachycardia - 103 bpm EKG Rhythm: Sinus Tachycardia ST Segment: Non-Specific Ectopy: PACs - Frequent EKG Interpretation: Normal axis Re-Evaluation - Re-Evaluation First Eval Re-Evaluation Time: 02:05 Comment: Still coughing up blood, his HR is down to 85 and is in sinus rhythm. Disposition - Course Course Of Treatment: pt presents with irregular HR/tachycardia as well as hemoptysis while on Coumadin. INR is grossly elevated. Vit K and 2u FFP given after consent obtained. EKG shows this was not rapid afib but freq PACs. PACs gone and HR to 85 with metoprolol. No heavy bleeding. CXR is not significantly changed. Known large necrotizing infiltrate in the RUL. Will require the infusion and close monitoring in the hospital for worsening bleeding. If it becomes severe, with the underlying pathology, it likely would be terminal. Assessment/Plan: Chest CT from 07/07/2017 revealed: Right upper lobe necrotizing infiltrate and large cavitary lesion of the right apex, additional smaller bilateral lower lobe infiltrates, enlarged mediastinal lymph nodes. CCT is EXCLUSIVE of separately billable procedures - Diagnoses Provider Diagnoses: Hemoptysis, Adverse effect of anticoagulant, Elevated INR - Physician Notifications Discussed Care Of Patient With: Ayden Cesar Time Discussed With Above Provider: 02:13 Instructed by Provider To: Other - Accepts pt for admision. - Critical Care Time Critical Care Time: 30-74 min - 30 minutes Discharge - Sign-Out/Discharge Documenting (check all that apply): Discharge/Admit/Transfer - Admit - Discharge Plan Condition: Guarded Disposition: ADMITTED TO [facility] Referrals: Caitlyn Tyler MD [Primary Care Provider] - - Billing Disposition and Condition Condition: GUARDED Disposition: HOSP-[facility] The documentation as recorded by the Michael pike Rebecca accurately reflects the service I personally performed and the decisions made by me, Cody Hayes MD.
--- NOTE | 2017-07-24 08:01 | HP ---
H&P (Free Text) History and Physical: PCP: Deneen Mercado MD Date/Time: 07/24/2017 4882 CC: hemoptysis HPI: Mr Love is an 86YO male discharged from [facility] 07/06-07/13/2017 after treatment for necrotizing pneumonia. He reports onset of hemotysis 2 days ago that "just won't go away" prompting him to present for evaluation tonight. He has some mildly increased SOB, but denies chest pain, F/C, sweats, generalized weakness, malaise, palpitation, light-headedness, black/bloody stools, or other issues. He is on warfarin for AFIB. INR tonight is 7.3. 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 Aspirin 81 mg CHEW TAB* 81 mg PO DAILY #30 tab.chew 07/13/17 Atorvastatin* [Lipitor 40 MG*] 40 mg PO 2100 #30 tab 07/13/17 Magnesium Oxide TAB* [MagOx 400 TAB*] 400 mg PO DAILY #30 tab 07/13/17 Metoprolol Tartrate TAB* [Lopressor TAB*] 25 mg PO BID #60 tab 07/13/17 Warfarin TAB(*) [Coumadin TAB(*)] 5 mg PO DAILY@1700 #30 tab 07/13/17 Allergies No Known Allergies Allergy (Verified 07/06/17 16:26) PSurgHx cataract extraction RML BX L shoulder surgery SocHx: former smoker, 1-2 beer/day, no recreational drugs; lives with his ; DNR code status FamHx: reviewed & non-contributory ROS: as above, otherwise reviewed and all were negative vitals: Vital Signs Temp 36.5 C 07/24/17 04:50 Pulse 96 07/24/17 04:50 Resp 16 07/24/17 04:50 BP 148/82 07/24/17 04:50 Pulse Ox 100 07/24/17 04:50 Intake & Output 07/23/17 07/23/17 07/24/17 11:59 23:59 11:59 Intake Total 1530 Balance 1530 Weight 54.476 kg Intake: IV Fluids 1050 Oral 480 Other: Estimated Void Medium # Voids 1 Constitutional: NAD, normally developed, well-nourished elderly white female HEENM: atraumatic; sclera/conjunctiva: anicteric/clear; hearing: clinically intact; oropharynx: clear, mucosa moist Neck: soft tissue: non-tender; thyroid: normal Pulmonary: clear to auscultation bilaterally, good aeration, no accessory muscle use CV: RR/RR, normal S1S2, no carotid bruit, no jugular venous distention, 2+ B DP/ PT, trace BLE edema Abdominal: soft, non-distended, non-tender, no rebound/guarding/rigidity, normoactive bowel sounds, no hepatosplenomegaly or masses, no costovertebral angle tenderness Musculoskeletal: general: grossly intact, non-tender to palpation; gait: Integumental: normal appearance and texture of exposed skin Psychiatric orientation: AA&O to PPS affect: calm mood: coopertive eye contact: fair content: reliable responses: timely insight: fair Testing: Lab Results 07/24/17 07/24/17 07/24/17 Range/Units 01:27 01:27 01:27 WBC (3.5-10.8) 10^3/ul RBC (4.0-5.4) 10^6/ul Hgb (14.0-18.0) g/dl Hct (42-52) % MCV (80-94) fL MCH (27-31) pg MCHC (31-36) g/dl RDW (10.5-15) % Plt Count (150-450) 10^3/ul MPV (7.4-10.4) um3 Neut % (Auto) (38-83) % Lymph % (Auto) (25-47) % [place] % (Auto) (0-7) % Eos % (Auto) (0-6) % Baso % (Auto) (0-2) % Absolute Neuts (auto) (1.5-7.7) 10^3/ul Absolute Lymphs (auto) (1.0-4.8) 10^3/ul Absolute Monos (auto) (0-0.8) 10^3/ul Absolute Eos (auto) (0-0.6) 10^3/ul Absolute Basos (auto) (0-0.2) 10^3/ul Absolute Nucleated RBC 10^3/ul Nucleated RBC % INR (Anticoag Therapy) 7.34 H* (0.77-1.02) Sodium (139-145) mmol/L Potassium Chloride (101-111) mmol/L Carbon Dioxide (22-32) mmol/L Anion Gap (2-11) mmol/L BUN (6-24) mg/dL Creatinine (0.67-1.17) mg/dL Est GFR ( Amer) (>60) Est GFR (Non-Af Amer) (>60) BUN/Creatinine Ratio (8-20) Glucose (70-100) mg/dL Lactic Acid (0.5-2.0) mmol/L Calcium (8.6-10.3) mg/dL Total Bilirubin (0.2-1.0) mg/dL AST ALT (7-52) U/L Alkaline Phosphatase (34-104) U/L Troponin I (<0.04) ng/mL B-Natriuretic Peptide 602 H ( - 100) pg/mL Total Protein (6.4-8.9) g/dL Albumin (3.2-5.2) g/dL Globulin (2-4) g/dL Albumin/Globulin Ratio (1-3) Blood Type A Positive Antibody Screen Negative 07/24/17 07/24/17 07/24/17 Range/Units 01:27 01:27 01:27 WBC 15.4 H (3.5-10.8) 10^3/ul RBC 3.21 L (4.0-5.4) 10^6/ul Hgb 10.4 L (14.0-18.0) g/dl Hct 31 L (42-52) % MCV 97 H (80-94) fL MCH 32 H (27-31) pg MCHC 33 (31-36) g/dl RDW 13 (10.5-15) % Plt Count 598 H D (150-450) 10^3/ul MPV 6.0 L (7.4-10.4) um3 Neut % (Auto) 85.8 H (38-83) % Lymph % (Auto) 5.3 L (25-47) % [place] % (Auto) 7.9 H (0-7) % Eos % (Auto) 0.5 (0-6) % Baso % (Auto) 0.5 (0-2) % Absolute Neuts (auto) 13.2 H (1.5-7.7) 10^3/ul Absolute Lymphs (auto) 0.8 L (1.0-4.8) 10^3/ul Absolute Monos (auto) 1.2 H (0-0.8) 10^3/ul Absolute Eos (auto) 0.1 (0-0.6) 10^3/ul Absolute Basos (auto) 0.1 (0-0.2) 10^3/ul Absolute Nucleated RBC 0 10^3/ul Nucleated RBC % 0.1 INR (Anticoag Therapy) (0.77-1.02) Sodium 128 L (139-145) mmol/L Potassium TNP Chloride 93 L (101-111) mmol/L Carbon Dioxide 29 (22-32) mmol/L Anion Gap 6 (2-11) mmol/L BUN 7 (6-24) mg/dL Creatinine 0.68 (0.67-1.17) mg/dL Est GFR ( Amer) 142.2 (>60) Est GFR (Non-Af Amer) 110.6 (>60) BUN/Creatinine Ratio 10.3 (8-20) Glucose 163 H (70-100) mg/dL Lactic Acid 2.3 H* (0.5-2.0) mmol/L Calcium 8.5 L (8.6-10.3) mg/dL Total Bilirubin 0.30 (0.2-1.0) mg/dL AST TNP ALT 7 (7-52) U/L Alkaline Phosphatase 122 H (34-104) U/L Troponin I 0.01 (<0.04) ng/mL B-Natriuretic Peptide ( - 100) pg/mL Total Protein 8.1 (6.4-8.9) g/dL Albumin 3.1 L (3.2-5.2) g/dL Globulin 5.0 H (2-4) g/dL Albumin/Globulin Ratio 0.6 L (1-3) Blood Type Antibody Screen 07/24/17 Range/Units 05:37 WBC (3.5-10.8) 10^3/ul RBC (4.0-5.4) 10^6/ul Hgb (14.0-18.0) g/dl Hct (42-52) % MCV (80-94) fL MCH (27-31) pg MCHC (31-36) g/dl RDW (10.5-15) % Plt Count (150-450) 10^3/ul MPV (7.4-10.4) um3 Neut % (Auto) (38-83) % Lymph % (Auto) (25-47) % [place] % (Auto) (0-7) % Eos % (Auto) (0-6) % Baso % (Auto) (0-2) % Absolute Neuts (auto) (1.5-7.7) 10^3/ul Absolute Lymphs (auto) (1.0-4.8) 10^3/ul Absolute Monos (auto) (0-0.8) 10^3/ul Absolute Eos (auto) (0-0.6) 10^3/ul Absolute Basos (auto) (0-0.2) 10^3/ul Absolute Nucleated RBC 10^3/ul Nucleated RBC % INR (Anticoag Therapy) (0.77-1.02) Sodium (139-145) mmol/L Potassium 4.3 Chloride (101-111) mmol/L Carbon Dioxide (22-32) mmol/L Anion Gap (2-11) mmol/L BUN (6-24) mg/dL Creatinine (0.67-1.17) mg/dL Est GFR ( Amer) (>60) Est GFR (Non-Af Amer) (>60) BUN/Creatinine Ratio (8-20) Glucose (70-100) mg/dL Lactic Acid (0.5-2.0) mmol/L Calcium (8.6-10.3) mg/dL Total Bilirubin (0.2-1.0) mg/dL AST 16 ALT (7-52) U/L Alkaline Phosphatase (34-104) U/L Troponin I (<0.04) ng/mL B-Natriuretic Peptide ( - 100) pg/mL Total Protein (6.4-8.9) g/dL Albumin (3.2-5.2) g/dL Globulin (2-4) g/dL Albumin/Globulin Ratio (1-3) Blood Type Antibody Screen ECG, personally reviewed: sinus tachycardia rate 103, frequent PACs, no ischemia CXR, personally reviewed: improved RUL infiltrate Impression: 86M recently discharged from [place] for necrotizing pneumonia on amoxicillin clavulanate now with warfarin toxicity & hemoptysis DIAGNOSIS & PLAN Primary hemoptysis 2nd warfarin toxicity : 2 units FFP & vitamin K given in ED : trend INR : supplemental oxygen : recommend holding anticoagulation for ~1 week post hemoptysis resolution before reinitiating : supportive care Secondary recent sepsis 2nd necrotizing pneumonia 07/2017j : complete amoxicillin clavulanate 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
--- NOTE | 2017-07-24 08:08 | RAD ---
INDICATION: Cough and hemoptysis x3 days COMPARISON: Most recent comparison chest x-ray is dated July 06, 2017 TECHNIQUE: PA and lateral views of the chest were obtained. FINDINGS: Again seen is curvature of the thoracic aorta with coarse calcification overlying the arch of the aorta. The trachea appears to be deviated towards the right also similar to the previous chest x-ray. There is density obscuring the mid-level right lung similar in appearance to the previous chest x-ray. Above this density is what appears to be free air overlying the expected location of the right lung apex. There is right costophrenic angle blunting. There is blunting of the left costophrenic angle. Air seen beneath the left hemidiaphragm appears to be contained within loops of bowel when reviewed both in the AP and lateral projection. Visualized bones are normal for the patient's age. IMPRESSION: 1. OVERALL STABLE APPEARANCE OF DENSITY OBSCURING THE RIGHT MID LEVEL LUNG WITH APPEARANCE OF FREE AIR OVERLYING THE APEX WHICH COULD BE SEEN IN THE SETTING OF CAVITARY PNEUMONIA. THE APPEARANCE OF THE CHEST X-RAY IS SIMILAR TO THE MOST RECENT JULY 06, 2017 CHEST X-RAY. 2. DEVIATION OF THE TRACHEA TOWARDS THE RIGHT COULD BE DUE TO CURVATURE OF THE THORACIC AORTA WELL TO VOLUME LOSS INVOLVING THE RIGHT UPPER LUNG.
[2017-07-24 08:36] LABS: ABS Basophils 0.1 10^3/ul (0-0.2); ABS Eosinophils 0 10^3/ul (0-0.6); ABS Lymphocytes 0.5 10^3/ul (1.0-4.8); ABS Monocytes 1.3 10^3/ul (0-0.8); ABS Neutrophils 11.9 10^3/ul (1.5-7.7); ABS Nucleated RBC 0 10^3/ul; Eosinophil % 0 % (0-6); Hematocrit 29 % (42-52); Hemoglobin 9.4 g/dl (14.0-18.0); Lymphocyte % 3.9 % (25-47); Mean Corpuscular HGB Conc 33 g/dl (31-36); Mean Corpuscular Hemoglobin 32 pg (27-31); Mean Corpuscular Volume 97 fL (80-94); Mean Platelet Volume 5.8 um3 (7.4-10.4); Nucleated Red Blood Cells % 0; Platelet Count 470 10^3/ul (150-450); Red Blood Count 2.94 10^6/ul (4.0-5.4); Red Cell Distribution Width 14 % (10.5-15); White Blood Count 13.8 10^3/ul (3.5-10.8)
[2017-07-24 08:47] LABS: INR 1.5 (0.77-1.02)
[2017-07-24 08:52] LABS: EGFR Non-African American 130.2 (>60)
[2017-07-24] MEDS ORDERED: Metoprolol Tartrate TAB* 25 MG PO SCH (09:00)
[2017-07-24] MEDS ORDERED: Magnesium Oxide TAB* 400 MG PO SCH (09:00)
[2017-07-24] MEDS ORDERED: Amoxicillin/Clavulanate TAB* 500 MG PO SCH (09:00)
[2017-07-24 16:10] VITALS: BP 147/78
[2017-07-24] MEDS ORDERED: Atorvastatin* 40 MG TAB PO SCH (21:00)
--- NOTE | 2017-07-24 22:59 | DS ---
CC: Dr. Tyler: PCP* DISCHARGE SUMMARY: DATE OF ADMISSION: 07/24/17 DATE OF DISCHARGE: 07/24/17 DISPOSITION: Against medical advice. PRINCIPAL DISCHARGE DIAGNOSES: 1. Hemoptysis. 2. Coagulopathy. 3. Necrotizing pneumonia. SECONDARY DISCHARGE DIAGNOSES: 1. History of cortical embolic cerebrovascular accident. 2. Atrial fibrillation, on anticoagulation. 3. Right carotid stenosis. 4. Chronic hypoxic respiratory failure. HOSPITAL COURSE BY PROBLEM: Hemoptysis. Mr. Love was admitted from the emergency department with hemoptysis that began the day of admission. He was recently discharged from the hospital on Augmentin for necrotizing pneumonia, which he had been taking along with his warfarin as prescribed and was found to have an INR of 7. His hemoglobin went from 10.4 to 9.4 on the morning of admission. The etiology of the hemoptysis was thought to be secondary to a coagulopathy in the setting of the recent necrotizing pneumonia, which is still present and stable on a repeat chest x-ray. His INR was reversed with vitamin K IV and his INR went down to 1.5 on the morning of admission; however, I recommended that he continue to be observed since he was still having a productive cough. His hemoglobin slightly trended down and he had ongoing hypoxia; however, Mr. Love chose to sign out against medical advice on the afternoon of 07/24/17 before he allowed me to examine him. I explained in depth the risks of leaving AMA including ongoing hypoxic respiratory failure, hemoptysis and hemorrhage, a CVA being off warfarin, and as well as worsening infection and sepsis. He and his family expressed understanding of these risks and still wish to leave this afternoon. He understands and is able to explain these risks back to me and wishes to follow up with his PCP only and not hear my recommendations today. [id number]/CPS #: [id number] [facility]ITALMeuhl
== END 2017-07-24 15:58 | disposition left against medical advice (07) ==
LOC: ED 00:43 → MEDTELE 03:48 → INTOOBSV 03:48 → OBSVTOIN 03:48
PROVIDERS: ADMIT Hospitalist; ATTEND Internal Medicine
DX: R04.2 Hemoptysis (principal); J85.0 Gangrene and necrosis of lung; I48.91 Unspecified atrial fibrillation; Z79.01 Long term (current) use of anticoagulants; J96.11 Chronic respiratory failure with hypoxia; I65.21 Occlusion and stenosis of right carotid artery; Z79.899 Other long term (current) drug therapy; Z87.891 Personal history of nicotine dependence; Z86.73 Personal history of transient ischemic attack (TIA), and cerebral infarction without residual deficits; R00.0 Tachycardia, unspecified; R94.31 Abnormal electrocardiogram [ECG] [EKG]; R06.02 Shortness of breath
CPT/HCPCS: 36415; 36430; 71046; 80048; 80053; 83605; 83880; 84484; 85025; 85610; 86850; 86900; 86901; 86927; 93005; 94760; 96374; 96375; 99283; 99291; A9270-GY; G0378; J3430; J3490; P9017

== ENCOUNTER 2017-08-03 03:31 | Inpatient (IN) | payer MEDICARE ==
[2017-08-03] MEDS ORDERED: Piperacillin/Tazobac ADVAN(*) 3.375 GM in NS 0.9% 100 ML* 100 ML IVPB ONE (04:08)
[2017-08-03] MEDS ORDERED: NS 0.9% 1000 ML* 1,000 ML IV ONE (04:08)
[2017-08-03] MEDS ORDERED: Vancomycin(*) 1,000 MG in NS 0.9% 250 ML* 250 ML IVPB ONE (04:08)
[2017-08-03 04:45] LABS: ABS Basophils 0.1 10^3/ul (0-0.2); ABS Eosinophils 0.1 10^3/ul (0-0.6); ABS Lymphocytes 0.5 10^3/ul (1.0-4.8); ABS Neutrophils 16.9 10^3/ul (1.5-7.7); ABS Nucleated RBC 0 10^3/ul; Eosinophil % 0.3 % (0-6); Hematocrit 31 % (42-52); Hemoglobin 9.9 g/dl (14.0-18.0); Lymphocyte % 2.8 % (25-47); Mean Corpuscular HGB Conc 32 g/dl (31-36); Mean Corpuscular Hemoglobin 32 pg (27-31); Mean Corpuscular Volume 99 fL (80-94); Mean Platelet Volume 6.2 um3 (7.4-10.4); Nucleated Red Blood Cells % 0; Platelet Count 261 10^3/ul (150-450); Red Cell Distribution Width 14 % (10.5-15); White Blood Count 18.6 10^3/ul (3.5-10.8)
[2017-08-03 04:52] LABS: INR 0.97 (0.77-1.02)
[2017-08-03 05:12] LABS: EGFR Non-African American 106.9 (>60)
[2017-08-03] MEDS ORDERED: Iohexol 350* (CONTRAST) 500 ML MDV IV ONE (05:41)
--- NOTE | 2017-08-03 07:25 | ED ---
Brina Ferrara Thomas, scribed for Kerwin Hess MD on 08/03/17 at 0418 . Complex/Multi-Sys Presentation - HPI Summary HPI Summary: The patient is a 86 year old male brought in by ambulance from home after he got up to use the bathroom and was found by his on the toilet after a syncopal episode. He has been coughing and complains of shortness of breath and chills. He denies pain or dizziness. He was recently diagnosed with pneumonia. - History Of Current Complaint Chief Complaint: EDGeneral Time Seen by Provider: 08/03/17 03:45 Hx Obtained From: Patient Onset/Duration: Still Present Timing: Constant Severity Initially: Severe Location: Negative Aggravating Factor(s): None Alleviating Factor(s): None Associated Signs And Symptoms: Positive: Other - Syncope, SOB, chills; NEGATIVE : pain, dizziness - Allergies/Home Medications Allergies/Adverse Reactions: Allergies Allergy/AdvReac Type Severity Reaction Status Date / Time No Known Allergies Allergy Verified 08/03/17 04:02 PMH/Surg Hx/FS Hx/Imm Hx Endocrine/Hematology History: Denies: Hx Diabetes, Hx Systemic Lupus Erythematosus Cardiovascular History: Denies: Hx Congestive Heart Failure, Hx Hypertension, Hx Pacemaker/ICD Comment Only: Other Cardiovascular Problems/Disorders - pac's Respiratory History: Reports: Hx Asthma, Other Respiratory Problems/Disorders - sob with exertion GI History: Comment Only: Other GI Disorders - hx reflux History: Denies: Hx Dialysis, Hx Renal Disease Musculoskeletal History: Reports: Other Musculoskeletal History - L rotator cuff tear and repair Denies: Hx Rheumatoid Arthritis Sensory History: Reports: Hx Cataracts, Hx Contacts or Glasses Denies: Hx Hearing Aid Opthamlomology History: Reports: Hx Cataracts, Hx Contacts or Glasses Neurological History: Denies: Hx CVA, Hx Transient Ischemic Attacks (TIA) Psychiatric History: Denies: Hx Panic Disorder - Cancer History Hx Chemotherapy: No - Surgical History Surgery Procedure, Year, and Place: rotator cuff repair left. abscess removed from right lung Hx Anesthesia Reactions: No Infectious Disease History: Unable to Obtain/Confirm Infectious Disease History: Denies: Hx Clostridium Difficile, Hx Hepatitis, Hx Human Immunodeficiency Virus (HIV), Hx of Known/Suspected MRSA, Hx Shingles, Hx Tuberculosis, History Other Infectious Disease, Traveled Outside the [place] in Last 30 Days - Family History Known Family History: Positive: Cardiac Disease - Social History Alcohol Use: Occasionally Substance Use Type: Reports: None Smoking Status (MU): Former Smoker Review of Systems Positive: Chills Positive: Shortness Of Breath Negative: Other - pain Neurological: Other - NEGATIVE: dizziness Positive: Syncope All Other Systems Reviewed And Are Negative: Yes Physical Exam - Summary Physical Exam Summary: VITAL SIGNS: Reviewed. GENERAL: Patient is a cachectic male who is lying comfortable in the stretcher. Patient is not in any acute respiratory distress. HEAD AND FACE: No signs of trauma. No ecchymosis, hematomas or skull depressions. No sinus tenderness. EYES: PERRLA, EOMI x 2, No injected conjunctiva, no nystagmus. EARS: Hearing grossly intact. Ear canals and tympanic membranes are within normal limits. MOUTH: Oropharynx within normal limits. NECK: Supple, trachea is midline, no adenopathy, no JVD, no carotid bruit, no c- spine tenderness, neck with full ROM. CHEST: Symmetric, no tenderness at palpation LUNGS: Decreased breath sounds bilaterally. CVS: Regular rate and rhythm, S1 and S2 present, no murmurs or gallops appreciated. ABDOMEN: Soft, non-tender. No signs of distention. No rebound no guarding, and no masses palpated. Bowel sounds are normal. EXTREMITIES: FROM in all major joints, no edema, no cyanosis or clubbing. NEURO: Alert and oriented x 3. No acute neurological deficits. Speech is normal and follows commands. SKIN: Dry and warm Triage Information Reviewed: Yes Vital Signs On Initial Exam: Initial Vitals Resp 14 08/03/17 03:39 Vital Signs Reviewed: Yes Diagnostics - Vital Signs Vital Signs Temp Pulse Resp BP Pulse Ox 08/03/17 03:42 38 90/54 08/03/17 03:40 96.6 F 96 20 90/54 95 08/03/17 03:39 14 - Laboratory Lab Results: Lab Results 08/03/17 08/03/17 08/03/17 Range/Units 04:26 04:26 04:26 WBC 18.6 H (3.5-10.8) 10^3/ul RBC 3.10 L (4.0-5.4) 10^6/ul Hgb 9.9 L (14.0-18.0) g/dl Hct 31 L (42-52) % MCV 99 H (80-94) fL MCH 32 H (27-31) pg MCHC 32 (31-36) g/dl RDW 14 (10.5-15) % Plt Count 261 (150-450) 10^3/ul MPV 6.2 L (7.4-10.4) um3 Neut % (Auto) 91.3 H (38-83) % Lymph % (Auto) 2.8 L (25-47) % [place] % (Auto) 5.3 (0-7) % Eos % (Auto) 0.3 (0-6) % Baso % (Auto) 0.3 (0-2) % Absolute Neuts (auto) 16.9 H (1.5-7.7) 10^3/ul Absolute Lymphs (auto) 0.5 L (1.0-4.8) 10^3/ul Absolute Monos (auto) 1.0 H (0-0.8) 10^3/ul Absolute Eos (auto) 0.1 (0-0.6) 10^3/ul Absolute Basos (auto) 0.1 (0-0.2) 10^3/ul Absolute Nucleated RBC 0 10^3/ul Nucleated RBC % 0 INR (Anticoag Therapy) 0.97 (0.77-1.02) APTT 24.7 L (26.0-36.3) seconds Sodium 134 L (139-145) mmol/L Potassium 4.3 (3.5-5.0) mmol/L Chloride 91 L (101-111) mmol/L Carbon Dioxide 38 H (22-32) mmol/L Anion Gap 5 (2-11) mmol/L BUN 14 (6-24) mg/dL Creatinine 0.70 (0.67-1.17) mg/dL Est GFR ( Amer) 137.5 (>60) Est GFR (Non-Af Amer) 106.9 (>60) BUN/Creatinine Ratio 20.0 (8-20) Glucose 130 H (70-100) mg/dL Lactic Acid (0.5-2.0) mmol/L Calcium 8.8 (8.6-10.3) mg/dL Total Bilirubin 0.40 (0.2-1.0) mg/dL AST 18 (13-39) U/L ALT 7 (7-52) U/L Alkaline Phosphatase 130 H (34-104) U/L Total Creatine Kinase 35 (10-223) U/L Troponin I 0.03 (<0.04) ng/mL C-Reactive Protein 57.32 H (< 5.00) mg/L Total Protein 7.5 (6.4-8.9) g/dL Albumin 3.1 L (3.2-5.2) g/dL Globulin 4.4 H (2-4) g/dL Albumin/Globulin Ratio 0.7 L (1-3) 08/03/17 Range/Units 04:26 WBC (3.5-10.8) 10^3/ul RBC (4.0-5.4) 10^6/ul Hgb (14.0-18.0) g/dl Hct (42-52) % MCV (80-94) fL MCH (27-31) pg MCHC (31-36) g/dl RDW (10.5-15) % Plt Count (150-450) 10^3/ul MPV (7.4-10.4) um3 Neut % (Auto) (38-83) % Lymph % (Auto) (25-47) % [place] % (Auto) (0-7) % Eos % (Auto) (0-6) % Baso % (Auto) (0-2) % Absolute Neuts (auto) (1.5-7.7) 10^3/ul Absolute Lymphs (auto) (1.0-4.8) 10^3/ul Absolute Monos (auto) (0-0.8) 10^3/ul Absolute Eos (auto) (0-0.6) 10^3/ul Absolute Basos (auto) (0-0.2) 10^3/ul Absolute Nucleated RBC 10^3/ul Nucleated RBC % INR (Anticoag Therapy) (0.77-1.02) APTT (26.0-36.3) seconds Sodium (139-145) mmol/L Potassium (3.5-5.0) mmol/L Chloride (101-111) mmol/L Carbon Dioxide (22-32) mmol/L Anion Gap (2-11) mmol/L BUN (6-24) mg/dL Creatinine (0.67-1.17) mg/dL Est GFR ( Amer) (>60) Est GFR (Non-Af Amer) (>60) BUN/Creatinine Ratio (8-20) Glucose (70-100) mg/dL Lactic Acid 3.5 H* (0.5-2.0) mmol/L Calcium (8.6-10.3) mg/dL Total Bilirubin (0.2-1.0) mg/dL AST (13-39) U/L ALT (7-52) U/L Alkaline Phosphatase (34-104) U/L Total Creatine Kinase (10-223) U/L Troponin I (<0.04) ng/mL C-Reactive Protein (< 5.00) mg/L Total Protein (6.4-8.9) g/dL Albumin (3.2-5.2) g/dL Globulin (2-4) g/dL Albumin/Globulin Ratio (1-3) Result Diagrams: 08/03/17 04:26 08/03/17 04:26 Lab Statement: Any lab studies that have been ordered have been reviewed, and results considered in the medical decision making process. - Radiology CXR Xray Interpretation: Positive (See Comments) - Diffuse infiltrate in the right upper and right middle lobe, which is chronic. Radiology Interpretation Completed By: ED Physician - CT CTA Chest CT Interpretation: Positive (See Comments) - 7.2 cm cavitary lesion in right apex containing increased dependent debris versus enlarging mass compared to 07/07, advise follow up. Persisting right upper lobe consolidation/scarring. Dr. Hess has reviewed this report. CT Interpretation Completed By: Radiologist - EKG 03:51 Cardiac Rate: NL EKG Rhythm: Sinus Rhythm - at 94 BPM Ectopy: PACs Complex Multi-Symp Course/Dx Assessment/Plan: The patient is a 86 year old male brought in by ambulance from home after he got up to use the bathroom and was found by his on the toilet after a syncopal episode. He has been coughing and complains of shortness of breath and chills. In the ED course, the patient was given vancomycin and IV fluids. Bloodwork and urinalysis were obtained. EKG shows sinus rhythm at 94 BPM with PACs. CXR shows diffuse infiltrate in the right upper and right middle lobe, which is chronic. The patient is admitted to Dr. Figueroa. - Diagnoses Provider Diagnoses: PNA (pneumonia) - Physician Notifications Discussed Care Of Patient With: Zoraida Figueroa Time Discussed With Above Provider: 07:14 Instructed by Provider To: Admit As Inpatient Discharge - Sign-Out/Discharge Documenting (check all that apply): Discharge/Admit/Transfer - Discharge Plan Condition: Fair Disposition: ADMITTED TO [facility] Referrals: Caitlyn Tyler MD [Primary Care Provider] - The documentation as recorded by the Brina pike Thomas accurately reflects the service I personally performed and the decisions made by Jimena dang Abdul, MD.
--- NOTE | 2017-08-03 08:01 | RAD ---
INDICATION: Chest pain. Short of breath. History of lung abscess. Evaluate for pulmonary embolus. COMPARISON: CT chest July 07, 2017 TECHNIQUE: Axial source images were obtained from the thoracic inlet to the hemidiaphragms following administration of [address] angiographic technique was utilized. Coronal and sagittal reconstructed images were acquired. CHEST FINDINGS: Neck/thyroid: The visualized neck to include the thyroid appear normal. Chest wall: There are no acute abnormalities of the bony thorax or chest wall. There is no supraclavicular, infraclavicular, or axillary lymphadenopathy. Lungs : There is a large cavitary lesion in the right lung apex masslike internal soft tissue density and/or necrotic lung. There is adjacent reactive peripheral change with areas of scarring in the right middle and right lower lobes. There is volume loss with resultant mild shift of the mediastinum to the right. There are extensive areas of scarring in the left hemothorax appearing unchanged. There is bronchial thickening predominantly in the lung bases. Overall there is very little interval change, however Cardiomediastinal structures: There is no CT evidence of acute pulmonary embolic disease. The heart is normal in size. There is no significant pericardial effusion. Small amount of fluid in the pericardial recesses There is no evidence of aortic aneurysm or dissection. There is persistent mediastinal and hilar adenopathy which appears little changed. The esophagus appears normal. Pleura : Right-sided pleural fluid with loculation. Small left-sided pleural effusion. The effusions are not significantly changed. Other: None. IMPRESSION: CAVITARY LESION RIGHT LUNG APEX CONSISTENT WITH BUT NOT DIAGNOSTIC OF LUNG ABSCESS. EXTENSIVE UNDERLYING PLEURAL AND PARENCHYMAL CHANGE WITH SCARRING AND LOCULATED PLEURAL FLUID IN THE RIGHT CHEST WITH VOLUME LOSS WITHOUT APPRECIABLE CHANGE. MILD UNDERLYING INTERSTITIAL LYMPHADENOPATHY. NO CT EVIDENCE OF ACUTE PULMONARY EMBOLIC DISEASE. RECOMMEND CONTINUED CLOSE FOLLOW-UP.
--- NOTE | 2017-08-03 08:05 | RAD ---
INDICATION: Cough. History of lung abscess. COMPARISON: Chest x-ray July 24, 2017; CT chest July 07, 2017 TECHNIQUE: An AP portable view obtained at 0415 hours is submitted. FINDINGS: Bones/Soft Tissues: There are no acute bony findings. Cardiomediastinal: The cardiomediastinal silhouette is unchanged. Lungs: Extensive, bilateral, pleural and parenchymal changes with cavitary lesion in the right lung apex appearing unchanged. Mild fine loss in the right chest.. Pleura: Bilateral pleural effusions, unchanged. Other: None IMPRESSION: EXTENSIVE PULMONARY AND PARENCHYMAL CHANGES BILATERALLY WITH CAVITARY LESION RIGHT LUNG APEX ALL UNCHANGED ON PLAIN RADIOGRAPHS. PLEASE REFER ALSO TO CT OF CHEST FROM SAME DATE.
[2017-08-03] MEDS ORDERED: Vancomycin per Pharmacy* NOTE FOLLOW UP PRN (08:46)
[2017-08-03] MEDS ORDERED: Vancomycin(*) 1,250 MG in NS 0.9% 250 ML* 250 ML IVPB SCH (09:00)
[2017-08-03] MEDS ORDERED: Enoxaparin(*) 30 MG/0.3 ML SYR SUBCUT SCH (09:00)
[2017-08-03] MEDS: Saline FLUSH-PERIPHERAL* 10 ML SYRINGE PERIPH SCH ×2 (10:07→19:11)
[2017-08-03] MEDS ORDERED: NS 0.9% 100 ML* 100 ML ONE (10:09)
[2017-08-03] MEDS: NS 0.9% 1000 ML* 1,000 ML IV SCH (10:19)
[2017-08-03] MEDS: Aspirin 81 mg CHEW TAB* 81 MG TAB.CHEW PO SCH (10:19)
[2017-08-03] MEDS: Albuterol/Ipratropium NEB.SOL* Albuterol 2.5 MG/Ipratropium 0.5 MG 3 ML INH SCH ×3 (12:27→21:16)
[2017-08-03] MEDS: Piperacillin/Tazobac ADVAN(*) 3.375 GM in NS 0.9% 100 ML* 100 ML IVPB SCH ×2 (12:28→20:41)
--- NOTE | 2017-08-03 13:46 | HP ---
HISTORY AND PHYSICAL: DATE OF ADMISSION: 08/03/17 CHIEF COMPLAINT: Syncope/loss of consciousness. HISTORY OF PRESENT ILLNESS: The patient is an 86-year-old gentleman with history of right carotid artery stenosis about 70%; AFib, previously on Coumadin which has recently been discontinued on previous discharge and admission as well as history of recently diagnosed necrotizing pneumonia wi th sepsis back on 07/24/17, who presented with the above chief complaint. More specifically, the wif e at bedside mentions that the patient got up out of bed today and went to the bathroom and a few min utes later was found down on the toilet floor. Unfortunately, the rest of the details of the history could not be provided by family members who did not witness the event and the patient himself denied any history of prodromal symptoms. On further inquiry, some family members mention that he may have woken up yesterday diaphoretic, but otherwise no other symptoms reported by either patient or family . 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 ALLERGIES: No known drug allergies. FAMILY HISTORY: Unknown. The patient could not remember nor does family. SOCIAL HISTORY: He is a former smoker. He used to drink about 1 to 2 beers per day. Denied any his tory of recreational drug use. The family members mention that he expressed recently that he wants t o be resuscitated, but does not want to be intubated and MOLST form has already been updated and fill ed out and placed in the ER chart. REVIEW OF SYSTEMS: The patient denies any recent headaches, dizziness fevers, chills, nausea, vomiti ng, chest pain, shortness of breath, increased cough or sputum production, abdominal pain, diarrhea, constipation, pain and/or increased frequency in urination, myalgias or arthralgias, throat pain or n ew skin lesions. The rest of the 14-point review of systems is otherwise unremarkable. PHYSICAL EXAMINATION GENERAL APPEARANCE: The patient is awake, oriented to place, not to time and person, ill-appearing g entleman. VITAL SIGNS: Reveals the most recent vital signs of record with blood pressure of 104/54, saturating at 100%, heart rate of 89 beats per minute, 30 per minute respiratory rate from 32 and 35. HEENT: Normocephalic, atraumatic, PERRLA. Extraocular muscles intact, negative for icterus. Moist oral mucosa, positive JVD. CHEST: Positive fine crackles in the right upper lobe. No other rales nor rhonchi appreciated, no w heezes. HEART: S1, S2 within normal limits. Slightly tachycardic. No murmurs, rubs, no gallops. ABDOMEN: Soft, nondistended, nontender. Normoactive bowel sounds x4. EXTREMITIES: No cyanosis, clubbing, or edema. PSYCHIATRIC: No active psychosis, depression, suicidal or homicidal ideations. SKIN: Warm to touch PERTINENT DIAGNOSTIC STUDIES/LAB DATA: EKG showing sinus rhythm with multiple premature complexes, both supraventricular and ventricular. Lactic acid is 3.5. Chest x-ray shows extensive pulmonary and parenchymal changes bilaterally with cavitary lesion. Righ t lung apex all unchanged on plain radiographs. CTA of his chest at this time showed cavitary lesion on the right lung apex, but not diagnostic of edy ng abscess and an extensive underlying pleural and parenchymal change with scarring and loculated ple ural fluid in the right chest with volume loss with appreciable change and mild underlying interstiti al lymphadenopathy. There are no CT evidence for acute pulmonary embolic disease. ASSESSMENT AND PLAN: The patient is an 86-year-old gentleman with history of right carotid artery stenosis; atrial fibrillation, on aspirin only, who was recently diagnosed with necrotizing p neumonia, and currently admitted today for sepsis likely due to pneumonia. 1. Sepsis likely secondary to known necrotizing pneumonia. We will obtain blood cultures and will o btain urine antigen test for Streptococcus pneumoniae and legionella to rule out other concomitant in fectious processes that may cause pneumonia. We will continue to follow blood cultures and if possib le sputum cultures. Unfortunately, Dr. Park is unavailable for consult over the weekend and will continue watchful waiting at this time with Zosyn, vancomycin, as well as IV normal saline. Given h e has some significant jugular venous distention despite not having any history of congestive heart f ailure, I will decrease his fluids to about 50 cc an hour to prevent further possible congestion. We will also consult Dr. Huntley given loculated pleural fluid detected on CT angio and may require a po ssible needle sampling and hence will defer. We will also consult pharmacist to further follow vanco trough with goal of 15 to 20 and we will defer. 2. Coronary artery stenosis and cerebrovascular accident. Continue statins and aspirin. 3. Paroxysmal atrial fibrillation, currently not on Coumadin given previous history of hemoptysis du ring last admission, which necessitated discontinuation of full anticoagulation. Continue aspirin at this time. The patient's home meds also did not show that he is on any form of beta jose d. 4. DVT prophylaxis. The patient is at high risk for DVT prophylaxis and will be placed on dose adju sted for both his age and renal function. 5. Disposition. Will consult PT in a.m. and as above. [id number]/[facility] #: [id number]
[2017-08-03] MEDS ORDERED: Heparin VIAL(*) 5000 UNITS/ML VIAL (FIVE THOUSAND) SUBCUT SCH (14:00)
[2017-08-03] MEDS ORDERED: NS 0.9% 500 ML* 500 ML IV ONE ×2 (17:46→18:00)
[2017-08-03 17:59] LABS: Urine Appearance Cloudy; Urine Blood 2+ (Negative); Urine Color Yellow; Urine Ketones Negative (Negative); Urine Protein 1+(30 mg/dL) (Negative); Urine Urobilinogen Negative (Negative)
[2017-08-03] MEDS: Vancomycin(*) 1,000 MG in NS 0.9% 250 ML* 250 ML IVPB SCH (18:45)
[2017-08-03 20:01] LABS: ABS Basophils 0 10^3/ul (0-0.2); ABS Eosinophils 0.1 10^3/ul (0-0.6); ABS Lymphocytes 0.9 10^3/ul (1.0-4.8); ABS Nucleated RBC 0 10^3/ul; Eosinophil % 0.7 % (0-6); Hematocrit 26 % (42-52); Hemoglobin 8.6 g/dl (14.0-18.0); Lymphocyte % 7.5 % (25-47); Mean Corpuscular HGB Conc 33 g/dl (31-36); Mean Corpuscular Hemoglobin 32 pg (27-31); Mean Corpuscular Volume 98 fL (80-94); Mean Platelet Volume 6.4 um3 (7.4-10.4); Nucleated Red Blood Cells % 0; Platelet Count 210 10^3/ul (150-450); Red Blood Count 2.66 10^6/ul (4.0-5.4); Red Cell Distribution Width 13 % (10.5-15); White Blood Count 12.1 10^3/ul (3.5-10.8)
[2017-08-03] MEDS: Atorvastatin* 40 MG TAB PO SCH (20:39)
--- NOTE | 2017-08-03 22:21 | CONS ---
PULMONARY CONSULTATION REPORT: DATE OF CONSULTATION: 08/03/17 CONSULTATION REQUESTED BY: Santi Dow MD. REASON FOR CONSULTATION: Evaluation of abnormal CT chest. HISTORY OF PRESENT ILLNESS: The patient is an 86-year-old male with history of empyema, lung abscess in the past, known to me from recent evaluation when he was admitted for right-sided pneumonia in the area where he had lung abscess years ago. The patient had CT scan at that time that showed evidence of cavitary lesion with densities in the cavity, consolidation on the right side with volume loss, small pleural effusions bilaterally. The patient was started on broad-spectrum antibiotics and was discharged home on antibiotics. The patient presents after syncope at home. He was in the bathroom, passed out and his found him in the bathroom after a fall. The patient denies any prodromal symptoms prior to it. The patient has been continuing to have the cough and sputum production. The patient also has dyspnea on exertion. The patient has a history of atrial fibrillation, was on Coumadin, which was recently discontinued and was started on aspirin. The patient also has been noticing blood in the sputum. The patient had a history of Strep intermedius in 2011. Recent sputum cultures grew normal christine. Strep pneumo and Legionella antigens have been negative. Influenza testing has been negative. Acid fast smear was sent recently, which did not show acid fast bacilli. The patient continues to have significant cough and sputum production. The patient is alert, awake, oriented at baseline currently. The patient denies fevers or chills. The patient denies any other symptoms at this time. Family at bedside. PAST MEDICAL HISTORY: 1. Necrotizing pneumonia in 2011 and again in July 2017 when he was hospitalized. 2. 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 3. Atrial fibrillation, currently not on anticoagulation. 4. Right coronary artery disease. 5. Hypoxemic respiratory failure. 6. 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 7. Status post cataract extraction. ALLERGIES: No known drug allergies. FAMILY HISTORY: Noncontributory to current complaint. SOCIAL HISTORY: Former smoker. He used to drink 1 to 2 beers a day. No recreational drug abuse. REVIEW OF SYSTEMS: All 14 systems reviewed and as per HPI. PHYSICAL EXAM: A thin elderly gentleman, in no apparent distress. Vital Signs : Temperature 98.2, pulse 99 beats per minute, respiratory rate 16 per minute, O2 sat 91% on 3 L, blood pressure 106/57. HEENT: Pupils equal and reactive to light. Mucous membranes are moist. No JVD. Chest: Crackles in right upper lobe, no wheeze. Decreased breath sounds on the right side. Cardiovascular: S1, S2 present, regular. Abdomen: Soft, nondistended. Bowel sounds present. Extremities: Normal range of motion. No clubbing. Skin: No rash. Neurological: No focal deficits at this time. DIAGNOSTIC STUDIES/LAB DATA: WBC count 18.6, hemoglobin 9.9, hematocrit 31, platelet count 261,000. Sodium 134, potassium 4.3, chloride 91, bicarb 38, BUN 14, creatinine 0.7. Lactate elevated on admission, normalized. Troponin slightly elevated at 0.06. CRP 57.32, which is elevated. CTA as described above in HPI. 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 The patient currently started on broad-spectrum antibiotics. CT chest was reviewed. The patient with evidence of cavitary lesion on the right side with evidence of postobstructive pneumonia and possible endobrachial lesion. The patient to continue on current antibiotics. Also suspect fungal pneumonia and need to rule out neoplasia. Will schedule the patient for CT-guided biopsy to obtain tissue diagnosis to rule out malignancy and also for cultures. Procedure was discussed with the patient and family. The patient expressed not willing to go ahead for the procedure, however, agreed to discuss with rest of the family and let us know about the decision. Thank you for allowing me to participate in the care of your patient. Will follow up with you. [id number]/[facility] #: [id number] CARL
[2017-08-04] MEDS: Piperacillin/Tazobac ADVAN(*) 3.375 GM in NS 0.9% 100 ML* 100 ML IVPB SCH ×3 (01:53→19:49)
[2017-08-04] MEDS: Albuterol/Ipratropium NEB.SOL* Albuterol 2.5 MG/Ipratropium 0.5 MG 3 ML INH SCH ×4 (03:26→21:04)
[2017-08-04 05:24] LABS: ABS Basophils 0 10^3/ul (0-0.2); ABS Eosinophils 0.1 10^3/ul (0-0.6); ABS Lymphocytes 0.7 10^3/ul (1.0-4.8); ABS Neutrophils 8.4 10^3/ul (1.5-7.7); ABS Nucleated RBC 0 10^3/ul; Eosinophil % 0.6 % (0-6); Hematocrit 27 % (42-52); Hemoglobin 8.6 g/dl (14.0-18.0); Lymphocyte % 6.5 % (25-47); Mean Corpuscular HGB Conc 32 g/dl (31-36); Mean Corpuscular Hemoglobin 32 pg (27-31); Mean Corpuscular Volume 100 fL (80-94); Mean Platelet Volume 6.6 um3 (7.4-10.4); Nucleated Red Blood Cells % 0; Platelet Count 200 10^3/ul (150-450); Red Blood Count 2.72 10^6/ul (4.0-5.4); Red Cell Distribution Width 14 % (10.5-15); White Blood Count 10.2 10^3/ul (3.5-10.8)
[2017-08-04 05:32] LABS: ABS Basophils 0 10^3/ul (0-0.2); ABS Eosinophils 0.1 10^3/ul (0-0.6); ABS Lymphocytes 0.7 10^3/ul (1.0-4.8); ABS Monocytes 0.8 10^3/ul (0-0.8); ABS Neutrophils 8.3 10^3/ul (1.5-7.7); ABS Nucleated RBC 0 10^3/ul; Eosinophil % 0.6 % (0-6); Hematocrit 28 % (42-52); Lymphocyte % 7.4 % (25-47); Mean Corpuscular HGB Conc 33 g/dl (31-36); Mean Corpuscular Hemoglobin 32 pg (27-31); Mean Corpuscular Volume 99 fL (80-94); Mean Platelet Volume 6.4 um3 (7.4-10.4); Nucleated Red Blood Cells % 0; Platelet Count 211 10^3/ul (150-450); Red Blood Count 2.78 10^6/ul (4.0-5.4); Red Cell Distribution Width 14 % (10.5-15)
[2017-08-04 05:47] LABS: EGFR Non-African American 112.5 (>60)
[2017-08-04] MEDS: Saline FLUSH-PERIPHERAL* 10 ML SYRINGE PERIPH SCH ×3 (06:16→15:41)
[2017-08-04] MEDS: NS 0.9% 1000 ML* 1,000 ML IV SCH (06:18)
[2017-08-04] MEDS: Vancomycin(*) 1,000 MG in NS 0.9% 250 ML* 250 ML IVPB SCH ×2 (06:18→17:59)
[2017-08-04] MEDS: Aspirin 81 mg CHEW TAB* 81 MG TAB.CHEW PO SCH (08:26)
--- NOTE | 2017-08-04 14:06 | PN ---
Progress Note - Progress Note Date of Service: 08/04/17 - Pulm f/u note Note: Pt seen and examined at bedside. Pt reports slight improvement in cough and phleghm. Remains on O2. Appears fatigued Active Medications Generic Name Dose Route Start Last Admin Trade Name Freq PRN Reason Stop Dose Admin Albuterol/Ipratropium 1 neb 08/03/17 09:00 08/04/17 08:04 Duoneb (Albuterol 2.5 Mg/Ipratropium 0.5 Mg) INH 1 neb Q6H HELEN Administration Aspirin 81 mg 08/03/17 09:00 08/04/17 08:26 Aspirin 81 Mg Chew Tab* PO 81 mg DAILY HELEN Administration Atorvastatin Calcium 40 mg 08/03/17 21:00 08/03/17 20:39 Lipitor* PO 40 mg 2100 HELEN Administration Piperacillin Sod/Tazobactam 100 mls @ 25 mls/hr 08/03/17 10:00 08/04/17 10:04 Sod 3.375 gm/ Sodium Chloride IVPB 25 mls/hr Q8H HELEN Administration Sodium Chloride 1,000 mls @ 75 mls/hr 08/03/17 08:30 08/04/17 06:18 Ns 0.9% 1000 Ml* IV 75 mls/hr .PER RATE HELEN Administration Vancomycin HCl 1,000 mg/ 250 mls @ 166.667 mls/hr 08/03/17 17:30 08/04/17 06: 18 Sodium Chloride IVPB 166.667 mls/hr Q12H HELEN Administration Pharmacy Consult 1 note 08/03/17 08:46 Vancomycin Per Pharmacy* FOLLOW UP . PRN PER PROTOCOL Pharmacy Profile Note 1 note 08/05/17 05:00 Vancomycin Trough Check FOLLOW UP 08/05/17 05:01 ONCE ONE Sodium Chloride 10 ml 08/03/17 09:00 08/04/17 08:18 Peripheral Saline Flush* PERIPH Not Given Q8H HELEN Vital Signs Temp Pulse Resp BP Pulse Ox 98.1 F 96 18 114/55 94 08/04/17 04:00 08/04/17 08:04 08/04/17 06:55 08/04/17 04:00 08/04/17 06:54 PHYSICAL EXAM: Pt in no apparent distress. HEENT: Pupils equal and reactive to light. Mucous membranes are moist. No JVD. Chest: Crackles in right upper lobe, no wheeze. Decreased breath sounds on the right side. Cardiovascular: S1, S2 present, regular. Abdomen: Soft, nondistended. Bowel sounds present. Extremities: Normal range of motion. No clubbing. Skin: No rash. Neurological: No focal deficits at this time Laboratory Results - last 24 hr 08/03/17 08/03/17 08/03/17 17:30 19:49 19:49 WBC 12.1 H RBC 2.66 L Hgb 8.6 L Hct 26 L MCV 98 H MCH 32 H MCHC 33 RDW 13 Plt Count 210 MPV 6.4 L Neut % (Auto) 83.0 Lymph % (Auto) 7.5 L [place] % (Auto) 8.5 H Eos % (Auto) 0.7 Baso % (Auto) 0.3 Absolute Neuts (auto) 10.0 H Absolute Lymphs (auto) 0.9 L Absolute Monos (auto) 1.0 H Absolute Eos (auto) 0.1 Absolute Basos (auto) 0 Absolute Nucleated RBC 0 Nucleated RBC % 0 Sodium Potassium Chloride Carbon Dioxide Anion Gap BUN Creatinine Est GFR ( Amer) Est GFR (Non-Af Amer) BUN/Creatinine Ratio Glucose Calcium Magnesium Total Bilirubin AST ALT Alkaline Phosphatase Troponin I 0.10 H* Total Protein Albumin Globulin Albumin/Globulin Ratio Urine Color Yellow Urine Appearance Cloudy Urine pH 5.0 Ur Specific [place] 1.050 H Urine Protein 1+(30 mg/dl) A Urine Ketones Negative Urine Blood 2+ A Urine Nitrate Negative Urine Bilirubin Negative Urine Urobilinogen Negative Ur Leukocyte Esterase Negative Urine WBC (Auto) Trace(0-5/hpf) Urine RBC (Auto) 3+(>10/hpf) A Ur Squamous Epith Cells Present A Urine Bacteria Absent Urine Glucose Negative 08/04/17 08/04/17 08/04/17 00:29 04:09 05:00 WBC 10.2 10.0 RBC 2.72 L 2.78 L Hgb 8.6 L 9.0 L Hct 27 L 28 L MCV 100 H 99 H MCH 32 H 32 H MCHC 32 33 RDW 14 14 Plt Count 200 211 MPV 6.6 L 6.4 L Neut % (Auto) 83.2 H 83.0 Lymph % (Auto) 6.5 L 7.4 L [place] % (Auto) 9.4 H 8.5 H Eos % (Auto) 0.6 0.6 Baso % (Auto) 0.3 0.5 Absolute Neuts (auto) 8.4 H 8.3 H Absolute Lymphs (auto) 0.7 L 0.7 L Absolute Monos (auto) 1.0 H 0.8 Absolute Eos (auto) 0.1 0.1 Absolute Basos (auto) 0 0 Absolute Nucleated RBC 0 0 Nucleated RBC % 0 0 Sodium Potassium Chloride Carbon Dioxide Anion Gap BUN Creatinine Est GFR ( Amer) Est GFR (Non-Af Amer) BUN/Creatinine Ratio Glucose Calcium Magnesium Total Bilirubin AST ALT Alkaline Phosphatase Troponin I 0.08 H* Total Protein Albumin Globulin Albumin/Globulin Ratio Urine Color Urine Appearance Urine pH Ur Specific [place] Urine Protein Urine Ketones Urine Blood Urine Nitrate Urine Bilirubin Urine Urobilinogen Ur Leukocyte Esterase Urine WBC (Auto) Urine RBC (Auto) Ur Squamous Epith Cells Urine Bacteria Urine Glucose 08/04/17 05:00 WBC RBC Hgb Hct MCV MCH MCHC RDW Plt Count MPV Neut % (Auto) Lymph % (Auto) [place] % (Auto) Eos % (Auto) Baso % (Auto) Absolute Neuts (auto) Absolute Lymphs (auto) Absolute Monos (auto) Absolute Eos (auto) Absolute Basos (auto) Absolute Nucleated RBC Nucleated RBC % Sodium 137 L Potassium 4.1 Chloride 94 L Carbon Dioxide 41 H* Anion Gap 2 BUN 11 Creatinine 0.67 Est GFR ( Amer) 144.6 Est GFR (Non-Af Amer) 112.5 BUN/Creatinine Ratio 16.4 Glucose 91 Calcium 8.4 L Magnesium 2.0 Total Bilirubin 0.40 AST 11 L ALT 5 L Alkaline Phosphatase 87 Troponin I Total Protein 6.7 Albumin 2.5 L Globulin 4.2 H Albumin/Globulin Ratio 0.6 L Urine Color Urine Appearance Urine pH Ur Specific [place] Urine Protein Urine Ketones Urine Blood Urine Nitrate Urine Bilirubin Urine Urobilinogen Ur Leukocyte Esterase Urine WBC (Auto) Urine RBC (Auto) Ur Squamous Epith Cells Urine Bacteria Urine Glucose IMPRESSION AND RECOMMENDATIONS: 86-year-old male, former smoker with significant emphysema, history of empyema, 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 The patient currently started on broad-spectrum antibiotics. CT chest was reviewed. The patient with evidence of cavitary lesion on the right side with evidence of postobstructive pneumonia and possible endobrachial lesion. Also suspect fungal pneumonia like Aspergillus and need to rule out neoplasia given persistent changes and cavitation. Awaiting sputum cultures. Pt is high risk for bronchoscopy and anesthesia complications. Will schedule the patient for CT-guided biopsy to obtain tissue diagnosis to rule out malignancy and also for cultures. Procedure was discussed with the patient and family. The patient expressed understanding of risks of the procedure, agreed to go ahead Will arrange with IR. Will add antifungals.
--- NOTE | 2017-08-04 18:02 | PN ---
Subjective Date of Service: 08/04/17 Interval History: HOSPITALIST PROGRESS NOTE Patient seen and examined at bedside. He feels better this AM. Denies CP, palpitations, dyspnea, but has not moved much. As per son in law, patient went to bathroom without his supplemental O2 and had prolonged LOC. He was described as pale, clammy and diaphoretic. He regained consciousness by the time EMS arrived. Family History: Unchanged from Admission Social History: Unchanged from Admission Past Medical History: Unchanged from Admission Objective Active Medications: Albuterol/Ipratropium (Duoneb (Albuterol 2.5 Mg/Ipratropium 0.5 Mg)) 1 neb INH Q6H [facility] Last Admin: 08/04/17 14:28 Dose: 1 neb Aspirin (Aspirin 81 Mg Chew Tab*) 81 mg PO DAILY [facility] Last Admin: 08/04/17 08:26 Dose: 81 mg Atorvastatin Calcium (Lipitor*) 40 mg PO 2100 [facility] Last Admin: 08/03/17 20:39 Dose: 40 mg Piperacillin Sod/Tazobactam (Sod 3.375 gm/ Sodium Chloride) 100 mls @ 25 mls/ hr IVPB Q8H [facility] Last Admin: 08/04/17 10:04 Dose: 25 mls/hr Sodium Chloride (Ns 0.9% 1000 Ml*) 1,000 mls @ 75 mls/hr IV .PER RATE [facility] Last Admin: 08/04/17 06:18 Dose: 75 mls/hr Vancomycin HCl 1,000 mg/ (Sodium Chloride) 250 mls @ 166.667 mls/hr IVPB Q12H [facility] Last Admin: 08/04/17 17:59 Dose: 166.667 mls/hr Pharmacy Consult (Vancomycin Per Pharmacy*) 1 note FOLLOW UP . PRN PRN Reason: PER PROTOCOL Pharmacy Profile Note (Vancomycin Trough Check) 1 note FOLLOW UP ONCE ONE Stop: 08/05/17 05:01 Sodium Chloride ( Peripheral Saline Flush*) 10 ml PERIPH Q8H [facility] Last Admin: 08/04/17 15:41 Dose: Not Given Vital Signs - 8 hr 08/04/17 14:28 Pulse Rate 118 Respiratory 20 Rate O2 Sat by Pulse 99 Oximetry Oxygen Devices in Use Now: Nasal Cannula - 2 liters Appearance: Elderly male lying in bed in NAD. Eyes: No Scleral Icterus Ears/Nose/Mouth/Throat: Mucous Membranes Moist Neck: Trachea Midline Respiratory: Symmetrical Chest Expansion and Respiratory Effort, - - BS+ bilaterally with crackles on the right Cardiovascular: - - Normal S1 and S2, irregularly irregular Abdominal: NL Sounds; No Tenderness; No Distention Extremities: No Edema Neurological: Alert and Oriented x 3, NL Muscle Strength and Tone Result Diagrams: 08/04/17 05:00 08/04/17 05:00 Assess/Plan/Problems-Billing Assessment: Mr Love is an 86 yo M with PMH of prior tobacco abuse, recurrent right lung abscess in 2011, Afib, carotid stenosis, CVA, who presented to ED after a syncopal episode. - Patient Problems (1) Sepsis Comment: - Met sepsis criteria on admission with tachycardia and leukocytosis. - Source is pneumonia/lung abscess. (2) Syncope Comment: - Likely multifactorial in the setting of sepsis, afib RVR, presumed hypoxia (went to the bathroom without O2). - Tele shows Afib and rate is better controlled. - Echo 07/09/17 showed EF 55-60%, mild MR. - No new neurological deficits. - Continue to monitor. (3) Afib Comment: - Add low dose Diltiazem with holding parameters. - Warfarin was held due to hemoptysis. (4) Abscess of right lung with pneumonia Comment: - Patient was diagnosed in 2011, culture grew Strep intermedius and patient was treated with antibiotics. - Treated with Augmentin in July. - Pulm input appreciated - plan for CT guided biopsy since patient has a cavitary lesion with evidence of post-obstructive pneumonia and possible endobronchial lesion - need to r/o malignancy. (5) Cerebrovascular accident, embolic Comment: - Admission in Julyfor episode of left arm weakness found to have embolic CVAs associated with Afib, but also bilateral carotid stenosis 70% SUMAYA stenosis and 50% LICA stenosis. - Continue Aspirin and statin. (6) DVT prophylaxis Comment: - No pharmacological prophylaxis due to hemoptysis. - SCDs.
--- NOTE | 2017-08-04 18:51 | PN ---
Hospitalist Progress Note Date of Service: 08/04/17 Called by RN because patient has higher supplemental O2 demand. SO2 78% on 15 liters oxymask. Will transfer to ICU for Vapotherm. Order chest PT and Mucinex. Continue antibiotics.
[2017-08-04] MEDS: Atorvastatin* 40 MG TAB PO SCH (21:41)
[2017-08-04] MEDS: guaiFENesin ER TAB 600 MG PO SCH (21:41)
[2017-08-05] MEDS: Diltiazem TAB* 30 MG PO SCH ×5 (00:21→20:20)
[2017-08-05] MEDS: Saline FLUSH-PERIPHERAL* 10 ML SYRINGE PERIPH SCH ×4 (00:23→21:18)
[2017-08-05] MEDS: Piperacillin/Tazobac ADVAN(*) 3.375 GM in NS 0.9% 100 ML* 100 ML IVPB SCH ×3 (02:01→18:23)
[2017-08-05] MEDS: Albuterol/Ipratropium NEB.SOL* Albuterol 2.5 MG/Ipratropium 0.5 MG 3 ML INH SCH ×4 (03:11→20:47)
[2017-08-05] MEDS ORDERED: Vancomycin Trough Check NOTE FOLLOW UP ONE (05:00)
[2017-08-05 05:40] LABS: EGFR Non-African American 101.9 (>60)
[2017-08-05] MEDS: Vancomycin(*) 1,000 MG in NS 0.9% 250 ML* 250 ML IVPB SCH ×2 (06:15→18:23)
--- NOTE | 2017-08-05 08:29 | PN ---
Subjective Date of Service: 08/05/17 Interval History: HOSPITALIST PROGRESS NOTE Patient seen and examined at bedside. Care reviewed and d/w Marilee Oconnell RN. He offers no complaints at this time. Even when his SO2 was in the 70s he denied dyspnea. No CP, palpitations. Cough is very weak and ineffective. Family History: Unchanged from Admission Social History: Unchanged from Admission Past Medical History: Unchanged from Admission Objective Active Medications: Albuterol/Ipratropium (Duoneb (Albuterol 2.5 Mg/Ipratropium 0.5 Mg)) 1 neb INH Q6H [facility] Last Admin: 08/05/17 03:11 Dose: 1 neb Aspirin (Aspirin 81 Mg Chew Tab*) 81 mg PO DAILY [facility] Last Admin: 08/04/17 08:26 Dose: 81 mg Atorvastatin Calcium (Lipitor*) 40 mg PO 2100 [facility] Last Admin: 08/04/17 21:41 Dose: 40 mg Diltiazem HCl (Cardizem Tab*) 30 mg PO Q6HR [facility] Last Admin: 08/05/17 06:15 Dose: 30 mg Guaifenesin (Mucinex*) 1,200 mg PO BID [facility] Last Admin: 08/04/17 21:41 Dose: 1,200 mg Piperacillin Sod/Tazobactam (Sod 3.375 gm/ Sodium Chloride) 100 mls @ 25 mls/ hr IVPB Q8H [facility] Last Admin: 08/05/17 02:01 Dose: 25 mls/hr Sodium Chloride (Ns 0.9% 1000 Ml*) 1,000 mls @ 75 mls/hr IV .PER RATE [facility] Last Admin: 08/04/17 06:18 Dose: 75 mls/hr Vancomycin HCl 1,000 mg/ (Sodium Chloride) 250 mls @ 166.667 mls/hr IVPB Q12H [facility] Last Admin: 08/05/17 06:15 Dose: 166.667 mls/hr Pharmacy Consult (Vancomycin Per Pharmacy*) 1 note FOLLOW UP . PRN PRN Reason: PER PROTOCOL Sodium Chloride ( Peripheral Saline Flush*) 10 ml PERIPH Q8H [facility] Last Admin: 08/05/17 00:23 Dose: Not Given Vital Signs - 8 hr 08/05/17 08/05/17 08/05/17 01:00 02:00 03:00 Temperature Pulse Rate 97 87 91 Respiratory 26 28 26 Rate Blood Pressure 113/50 106/53 134/65 (mmHg) O2 Sat by Pulse 100 100 100 Oximetry 08/05/17 08/05/17 08/05/17 03:11 04:00 05:00 Temperature 97.3 F 98.6 F Pulse Rate 97 94 80 Respiratory 27 14 19 Rate Blood Pressure 126/58 111/59 (mmHg) O2 Sat by Pulse 99 100 96 Oximetry 08/05/17 08/05/17 08/05/17 06:00 07:00 07:19 Temperature 98.8 F 98.8 F 98.6 F Pulse Rate 87 91 Respiratory 12 14 Rate Blood Pressure 116/61 94/51 (mmHg) O2 Sat by Pulse 96 94 Oximetry 08/05/17 08:00 Temperature Pulse Rate Respiratory 24 Rate Blood Pressure (mmHg) O2 Sat by Pulse Oximetry Oxygen Devices in Use Now: High Flow Heated Nasal Cannula - 25 liters Appearance: Elderly male lying in bed in NAD. Eyes: No Scleral Icterus Ears/Nose/Mouth/Throat: Mucous Membranes Moist Neck: Trachea Midline Respiratory: Symmetrical Chest Expansion and Respiratory Effort, - - BS+ bilaterally, decreased on the right with crackles Cardiovascular: RRR - Normal S1 and S2 Abdominal: NL Sounds; No Tenderness; No Distention Extremities: No Edema Neurological: Alert and Oriented x 3, NL Muscle Strength and Tone Result Diagrams: 08/04/17 05:00 08/05/17 05:04 Assess/Plan/Problems-Billing Assessment: Mr Love is an 86 yo M with PMH of prior tobacco abuse, recurrent right lung abscess in 2011, Afib, carotid stenosis, CVA, who presented to ED after a syncopal episode. - Patient Problems (1) Acute and chronic respiratory failure Comment: - Secondary to pneumonia/lung abscess/possible Aspergilosis. - Continue high flow supplemental O2. (2) Sepsis Comment: - Met sepsis criteria on admission with tachycardia and leukocytosis. - Source is pneumonia/lung abscess. (3) Syncope Comment: - Likely multifactorial in the setting of sepsis, afib RVR, presumed hypoxia (went to the bathroom without O2). - Tele shows Afib and rate is better controlled. - Echo 07/09/17 showed EF 55-60%, mild MR. - No new neurological deficits. - Continue to monitor. (4) Afib Comment: - Continue low dose Diltiazem with holding parameters. - Warfarin was held due to hemoptysis. (5) Abscess of right lung with pneumonia Comment: - Patient was diagnosed in 2011, culture grew Strep intermedius and patient was treated with antibiotics. - Treated with Augmentin in July. - Pulm input appreciated - plan for CT guided biopsy since patient has a cavitary lesion with evidence of post-obstructive pneumonia and possible endobronchial lesion - need to r/o malignancy. - Sputum is growing mold - will add Voriconazole for possible Aspergilosis. (6) Cerebrovascular accident, embolic Comment: - Admission in Julyfor episode of left arm weakness found to have embolic CVAs associated with Afib, but also bilateral carotid stenosis 70% SUMAYA stenosis and 50% LICA stenosis. - Continue Aspirin and statin. (7) DVT prophylaxis Comment: - No pharmacological prophylaxis due to hemoptysis. - SCDs.
[2017-08-05] MEDS: Aspirin 81 mg CHEW TAB* 81 MG TAB.CHEW PO SCH (09:38)
[2017-08-05] MEDS: guaiFENesin ER TAB 600 MG PO SCH ×2 (09:40→20:20)
[2017-08-05] MEDS ORDERED: Voriconazole(*) 200 MG VIAL IV SCH (13:00)
[2017-08-05] MEDS: VORICONAZOLE IVPB SCH (14:32)
[2017-08-05] MEDS: NS 0.9% IVPB SCH (14:32)
[2017-08-05] MEDS: Atorvastatin* 40 MG TAB PO SCH (20:20)
[2017-08-06] MEDS: VORICONAZOLE IVPB SCH (02:11)
[2017-08-06] MEDS: NS 0.9% IVPB SCH (02:11)
[2017-08-06] MEDS: Piperacillin/Tazobac ADVAN(*) 3.375 GM in NS 0.9% 100 ML* 100 ML IVPB SCH ×2 (02:11→10:49)
[2017-08-06] MEDS: Diltiazem TAB* 30 MG PO SCH ×3 (02:16→14:51)
[2017-08-06] MEDS: Saline FLUSH-PERIPHERAL* 10 ML SYRINGE PERIPH SCH ×3 (02:17→18:03)
[2017-08-06] MEDS: Albuterol/Ipratropium NEB.SOL* Albuterol 2.5 MG/Ipratropium 0.5 MG 3 ML INH SCH ×2 (03:37→07:25)
[2017-08-06] MEDS: Vancomycin(*) 1,000 MG in NS 0.9% 250 ML* 250 ML IVPB SCH (05:09)
[2017-08-06 05:24] LABS: ABS Basophils 0.1 10^3/ul (0-0.2); ABS Eosinophils 0 10^3/ul (0-0.6); ABS Lymphocytes 0.3 10^3/ul (1.0-4.8); ABS Monocytes 1.4 10^3/ul (0-0.8); ABS Neutrophils 14.5 10^3/ul (1.5-7.7); ABS Nucleated RBC 0 10^3/ul; Eosinophil % 0 % (0-6); Hematocrit 27 % (42-52); Hemoglobin 8.4 g/dl (14.0-18.0); Lymphocyte % 1.8 % (25-47); Mean Corpuscular HGB Conc 31 g/dl (31-36); Mean Corpuscular Hemoglobin 32 pg (27-31); Mean Corpuscular Volume 102 fL (80-94); Nucleated Red Blood Cells % 0.2; Platelet Count 195 10^3/ul (150-450); Red Blood Count 2.64 10^6/ul (4.0-5.4); Red Cell Distribution Width 14 % (10.5-15); White Blood Count 16.2 10^3/ul (3.5-10.8)
--- NOTE | 2017-08-06 08:36 | PN ---
Subjective Date of Service: 08/06/17 Interval History: HOSPITALIST PROGRESS NOTE Patient seen and examined at bedside. Care reviewed and d/w Gail Macias RN. Daughter Bhavya and TRAMAINE Laura at bedside. He's lethargic but arousable to voice, offers no complaints. Denies dyspnea, even though he's on Vapotherm 40 liters/100%. Denies CP, palpitations. Family History: Unchanged from Admission Social History: Unchanged from Admission Past Medical History: Unchanged from Admission Objective Active Medications: Albuterol/Ipratropium (Duoneb (Albuterol 2.5 Mg/Ipratropium 0.5 Mg)) 1 neb INH Q6H [facility] Last Admin: 08/06/17 07:25 Dose: 1 neb Aspirin (Aspirin 81 Mg Chew Tab*) 81 mg PO DAILY [facility] Last Admin: 08/05/17 09:38 Dose: 81 mg Atorvastatin Calcium (Lipitor*) 40 mg PO 2100 [facility] Last Admin: 08/05/17 20:20 Dose: 40 mg Diltiazem HCl (Cardizem Tab*) 30 mg PO Q6H [facility] Last Admin: 08/06/17 02:16 Dose: 30 mg Guaifenesin (Mucinex*) 1,200 mg PO BID [facility] Last Admin: 08/05/17 20:20 Dose: 1,200 mg Piperacillin Sod/Tazobactam (Sod 3.375 gm/ Sodium Chloride) 100 mls @ 25 mls/ hr IVPB Q8H [facility] Last Admin: 08/06/17 02:11 Dose: 25 mls/hr Vancomycin HCl 1,000 mg/ (Sodium Chloride) 250 mls @ 166.667 mls/hr IVPB Q12H [facility] Last Admin: 08/06/17 05:09 Dose: 166.667 mls/hr Voriconazole 240 mg/ Sodium (Chloride) 124 mls @ 88.66 mls/hr IVPB Q12H [facility] PRN Reason: 3 MG/KG/HR Pharmacy Consult (Vancomycin Per Pharmacy*) 1 note FOLLOW UP . PRN PRN Reason: PER PROTOCOL Sodium Chloride ( Peripheral Saline Flush*) 10 ml PERIPH Q8H [facility] Last Admin: 08/06/17 02:17 Dose: 10 ml Vital Signs - 8 hr 05/07/18 05/07/18 05/07/18 04:42 05:00 05:01 Temperature 98.6 F 98.6 F 98.6 F Pulse Rate Respiratory 12 Rate Blood Pressure 98/46 99/49 (mmHg) O2 Sat by Pulse 95 95 95 Oximetry 08/06/17 08/06/17 08/06/17 05:30 06:00 07:27 Temperature 98.4 F 98.4 F Pulse Rate 89 90 Respiratory 12 17 Rate Blood Pressure 100/42 102/48 (mmHg) O2 Sat by Pulse 92 90 92 Oximetry Oxygen Devices in Use Now: High Flow Heated Nasal Cannula - 40 liters/100% FiO2 Appearance: Elderly male lying in bed, looks chronically ill, in mild respiratory distress, lethargic. Eyes: No Scleral Icterus Ears/Nose/Mouth/Throat: Mucous Membranes Moist Neck: Trachea Midline Respiratory: Symmetrical Chest Expansion and Respiratory Effort, - - BS+ bilaterally, with crackles on the right Cardiovascular: - - Normal S1 and S2, irregularly irregular Abdominal: NL Sounds; No Tenderness; No Distention Neurological: - - Lethargic, arousable to voice Result Diagrams: 08/06/17 04:55 08/06/17 04:55 Assess/Plan/Problems-Billing Assessment: Mr Love is an 86 yo M with PMH of prior tobacco abuse, recurrent right lung abscess in 2011, Afib, carotid stenosis, CVA, who presented to ED after a syncopal episode. - Patient Problems (1) Acute and chronic respiratory failure Comment: - Secondary to pneumonia/lung abscess/possible Aspergilosis. - Continue high flow supplemental O2. (2) Sepsis Comment: - Met sepsis criteria on admission with tachycardia and leukocytosis. - Source is pneumonia/lung abscess. (3) Syncope Comment: - Likely multifactorial in the setting of sepsis, afib RVR, presumed hypoxia (went to the bathroom without O2). - Tele shows Afib and rate is better controlled. - Echo 07/09/17 showed EF 55-60%, mild MR. - No new neurological deficits. (4) Afib Comment: - Continue low dose Diltiazem with holding parameters. - Warfarin was held due to hemoptysis. (5) Abscess of right lung with pneumonia Comment: - Patient was diagnosed in 2011, culture grew Strep intermedius and patient was treated with antibiotics. - Treated with Augmentin in July. - Pulm input appreciated - plan was for CT guided biopsy since patient has a cavitary lesion with evidence of post-obstructive pneumonia and possible endobronchial lesion to r/o malignancy but he's not stable for procedures. - Sputum is growing mold - continue Voriconazole for possible Aspergilosis. (6) Cerebrovascular accident, embolic Comment: - Admission in Julyfor episode of left arm weakness found to have embolic CVAs associated with Afib, but also bilateral carotid stenosis 70% SUMAYA stenosis and 50% LICA stenosis. - Continue Aspirin and statin. (7) DVT prophylaxis Comment: - No pharmacological prophylaxis due to hemoptysis. - SCDs. (8) End of life care Comment: - Patient's condition has declined and respiratory failure has worsened. Lengthy conversation with patient's daughter and son-in-law - at this point they want to continue aggressive treatment and "give him a chance". They' re very clear he would not want tracheostomy or to be vent dependent, but at this point they would like him to be resuscitated and intubated if needed. They' ll talk to patient's who's basically home bound at this point. - Overall prognosis is very poor. - Will request Critical care evaluation. Status and Disposition: 50 minutes critical care time.
[2017-08-06] MEDS ORDERED: Morphine VIAL* 4 MG/ML VIAL (1 ml vial) IV PRN (10:28)
[2017-08-06] MEDS: guaiFENesin ER TAB 600 MG PO SCH (10:51)
[2017-08-06] MEDS: Aspirin 81 mg CHEW TAB* 81 MG TAB.CHEW PO SCH (10:51)
--- NOTE | 2017-08-06 12:09 | CONSULT ---
Consult Consult: CRITICAL CARE MEDICINE DATE: 08/06/2017 TIME: 1000 REFERRING PROVIDER: Boaz REASON/CHIEF COMPLAINT: resp failure HISTORY OF PRESENT ILLNESS: 86 M with extensive pneumonia history from 2011 who otherwise per family is usually able to avoid hospitalizations and had been active until maybe last year or so with declining functionality. He presented post fall at home and question syncope vs overall weakness and worsening lung dynamics. Recent admission past month with concern for post obstructive pna on abx but failing. Potential Cancer workup need was underway. His status continued to fail and now in ICU on high flow O2 but still worsening with afib and dec sats now with 40lpm 100%. Family at bedside and present for rounds. REVIEW OF SYSTEMS: As per HPI. limited sec to acuity but pt denies pain, does admit to still feeling sob. PAST MEDICAL HISTORY: As per HPI. cva, afib, cad MEDICATIONS: Reviewed. ALLERGIES: None. SOCIAL HISTORY: . FAMILY HISTORY: Noncontributory at present. PHYSICAL EXAM: Vital Signs: Reviewed. Hr 110s. RR mainly about 30. sat 96% on 40lpm 100%. Neurologic: awake, attempts communication with difficulty and hard to guage true capacity but a gentleman all the same. HEENT: anicteric, mm dry Cardiovascular: irr irr Respiratory: dec bs bl; msk loss and poor excursion. poor flow and no reserve. Abdomen: soft, nt some accessory msk use Extremities: ecchymosis at knees, distally warm Access: piv LABS: Reviewed. IMAGING: Reviewed. CT reviewed with family MEDICATIONS: Reviewed. 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 post obstuctive process may have much more to do with scarring as well and chronic infective potential from aspergillosis especially. Underlying emphysema is severe and reserve is lost. On HFO2 without ability to self rescue. D/w family regarding pts wishes with current ailments. we discussed reveresibility vs non- reversibility. They expressed understanding and expressed pts wishes. Will change to DNR/DNI, no niv, and continue HFO2 and supportive care as we are and allow morphine for comfort, perhaps even gtt depending on needs and see how pt does with some more time. If more symptomatic then support further comfort and avoid prolonged dying process. Morphine ordered. Keep care as we are. Hold off any invasive testing. DNR/DNI. See what he does in time. Supportive and preventative care as ordered. Disposition: Requires ICU presently. Code Status: DNR/DNI Critical Care Time: 35min D/w Dr. Boaz Cui, DO
[2017-08-06] MEDS ORDERED: Voriconazole(*) 200 MG/20 ML VIAL (after mixing w/ 19 ml SW) IVPB SCH (13:00)
[2017-08-06] MEDS ORDERED: VORICONAZOLE IVPB SCH (14:00)
[2017-08-06] MEDS ORDERED: NS 0.9% IVPB SCH (14:00)
--- NOTE | 2017-08-06 16:34 | PN ---
Progress Note - Progress Note Date of Service: 08/06/17 Note: CRITICAL CARE MEDICINE DATE: 08/06/2017 TIME: 1600 Pts dying. Family not present but nursing will see if they can come back. Can stop non-essential rx. CAn dc HFO2 and allow natural hopefully when family returns but otherwise may pass on HFO2. ICU care Mikey Cui, DO
[2017-08-06 17:59] VITALS: BP 83/50
[2017-08-06] MEDS ORDERED: Atropine 1% (ORAL/SL)* 15 ML BTL SL PRN (20:16)
[2017-08-07] MEDS: Saline FLUSH-PERIPHERAL* 10 ML SYRINGE PERIPH SCH (02:05)
[2017-08-07] MEDS ORDERED: Vancomycin Trough Check NOTE FOLLOW UP ONE (05:30)
--- NOTE | 2017-08-07 13:22 | DS ---
CC: Dr. Tyler; Dr. Huntley * SUMMARY: DATE OF ADMISSION: 08/03/17. DATE/TIME OF : 08/07/17 at 4:22 in the morning. MY ATTENDING PHYSICIAN WHILE IN THE HOSPITAL: Dr. Coreen Florence * (report dictated by Nasima Bernal NP). HISTORY OF PRESENTING ILLNESS: I refer you to Dr. Dow' H and P for further details. In short, Mr. Love is an 86-year-old male patient that presented to the emergency department with complaints of getting out of bed and going to the bathroom and was found down on the floor. He came in initially for syncope. He was admitted and was found to be septic, likely secondary to known necrotizing pneumonia. He was seen in evaluation by Dr. Huntley. He had not improved on 08/04/17. He was continuing to require O2. He required transfer to the ICU later the day on 08/04/17 for Vapotherm. 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 The plan was to go for a CT biopsy and possible bronch. He was added on voriconazole for possible aspergillosis. He was maxed out on 40 L on 100% FiO2 and he was lethargic, but arousable to voice. His condition continued to decline and his respiratory status had been worsening. The family did want to pursue aggressive care. The family was clear that they did not want tracheostomy or to be vent dependent, but that the family this morning did want to proceed with aggressive care. His prognosis was very poor. He was seen in consult by critical care later on the . It was felt by the critical care that he had a chronically failing respiratory failure with an acute component without a reversible cause. It was felt that he had a underlying COPD in addition to this his reserve was lost, he could not rescue on high-flow O2. The case was discussed by critical care with the family and after discussion it was felt that the patient would not benefit from intubation and the family agreed and did not want to escalate care they did not want intubation, no non-invasive ventilation, they wanted supportive care mostly for comfort perhaps a drip and high-flow O2. At 1600 tonight, he was placed on full comfort measures. At 4:22 this morning, he comfortably with nursing at the bedside. The family was updated. They refused an autopsy. At this point, I was called at 4:22 and pronounced the patient. There was no heart sounds auscultated, no breath sounds, pupils were fixed and dilated. Time of was 4:22 a.m. on 08/07/17. TIME SPENT: On discharge was approximately 20 minutes, greater than half the time spent in discussion with nursing staff and consoling family; other half of the time spent implementing the discharge plan. NASIMA BERNAL NP [id number] #: [id number] CARL
== END 2017-08-07 04:22 | disposition expired | DRG 871 ==
LOC: ED 03:31 → MEDTELE 09:15 → ICU 08-04 20:04
PROVIDERS: ADMIT Student in an Organized Health Care Education/Training Program; ATTEND Pediatrics
PROC: 5A09457 Assistance with Respiratory Ventilation, 24-96 Consecutive Hours, Continuous Positive Airway Pressure (ICD-10-PCS; principal; 2017-08-04)
DX: A41.9 Sepsis, unspecified organism (principal); J85.1 Abscess of lung with pneumonia; J85.0 Gangrene and necrosis of lung; J96.21 Acute and chronic respiratory failure with hypoxia; B44.1 Other pulmonary aspergillosis; I65.21 Occlusion and stenosis of right carotid artery; I48.91 Unspecified atrial fibrillation; R55 Syncope and collapse; Z86.73 Personal history of transient ischemic attack (TIA), and cerebral infarction without residual deficits; Z87.891 Personal history of nicotine dependence; Z79.82 Long term (current) use of aspirin; Z82.49 Family history of ischemic heart disease and other diseases of the circulatory system
CPT/HCPCS: 36415; 71045; 71275; 80048; 80053; 80202; 81003; 81015; 82550; 83605; 83735; 84134; 84484; 85025; 85610; 85730; 86140; 87040; 87070; 87086; 87106; 87107; 87116; 87205; 87206; 87899; 93005; 94640; 94667; 94668; 99285; A9270-GY; G8978-GP-CL; G8979-GP-CI; J2270; J2543; J3370; J3465; Q9967